=== PATIENT | male | born 1935 | race Caucasian/White ===

== ENCOUNTER 2018-11-26 22:01 | Inpatient (IN) | payer OTHER ==
--- OUTSIDE RECORDS SUMMARY | 2018-11-26 22:04 | XMS REPORT | Continuity of Care Document ---
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/02/2018 [facility] spondylosis [facility] Dystonia Active Problem 08/02/2018 [facility] HTN - Hypertension Active Problem 08/02/2018 [facility] Hyperlipidemia Active Problem 08/02/2018 [facility] Hypothyroidism Active Problem 08/02/2018 [facility] Peripheral Active Problem 08/02/2018 [facility] neuropathy [facility] Medications Medication Details Route Status Patient Ordering Order Source Instructions Provider Date guaiFENesin 600 mg 600 mg=1 Active [facility] oral tablet, tab, PO, 019 [facility] extended release Q12H, # 20 tab, 0 Refill(s) cyclobenzaprine 10 10 mg=1 Active [facility] mg oral tablet tab, PO, 019 [facility] Bedtime, PRN for spasms, # 30 tab, 0 Refill(s) Acetaminophen 325 1 tab, PO, Active [facility] MG / Hydrocodone Q4H, PRN 019 [facility] Bitartrate 10 MG for pain, Oral Tablet [[place]mo # 24 tab, 10/325] 0 Refill(s) amLODIPine 5 mg 5 mg=1 Active [facility] oral tablet tab, PO, 019 [facility] BID, 0 Refill(s) metoprolol 50 mg=1 Active [facility] tartrate 50 mg tab, PO, 019 [facility] oral tablet BID, # 180 tab, 0 Refill(s) Miralax 17 gm, PO, Active [facility] Daily, 0 019 [facility] Refill(s) simvastatin 20 mg 20 mg=1 Active [facility] oral tablet tab, PO, 019 [facility] Bedtime, # 30 tab, 1 Refill(s) predniSONE 5 mg 5 mg=1 Active [facility] oral tablet tab, PO, 019 [facility] Daily, 0 Refill(s) [facility] 112 [facility] (0.112 mg) microgram= 019 [facility] oral tablet 1 tab, PO, Daily, # 30 tab, 0 Refill(s) Breo Ellipta 100 1 puff, [facility] mcg-25 mcg INHALATION 019 [facility] inhalation powder , Daily, 0 Refill(s) duloxetine 60 MG 60 mg=1 [facility] Enteric Coated cap, PO, 019 [facility] Capsule [Cymbalta] Daily, # 30 cap, 0 Refill(s) Ventolin HFA 90 2 puff, Active [facility] mcg/inh inhalation INHALATION 019 Neuro aerosol with , QID, 0 adapter Refill(s) clopidogrel 75 MG 75 mg=1 [facility] Oral Tablet tab, PO, 019 [facility] [Plavix] Daily, # 30 tab, 0 Refill(s) Allergies, Adverse Reactions, Alerts Substance Category Reaction Severity Reaction Status Date Comments Source type Reported penicillins Assertion Drug Active [facility] allergy Neuro sulfa drugs Assertion Drug Active [facility] allergy Neuro Immunizations No Data Provided for This Section Results No Data Provided for This Section Pathology Reports No Data Provided for This Section Diagnostic Reports No Data Provided for This Section Consultation Notes No Data Provided for This Section Discharge Summaries No Data Provided for This Section History and Physicals No Data Provided for This Section Vital Signs Vital Sign Value Date Comments Source BMI Calculated 31.05 07/31/2018 [facility] Neuro Weight 87.273 07/31/2018 [facility] Neuro Height 167.64 cm 07/31/2018 [facility] Neuro Respitory Rate 16 07/31/2018 [facility] Neuro Systolic (mm Hg) 142 07/31/2018 [facility] Neuro Diastolic (mm Hg) 65 07/31/2018 [facility] Neuro Heart Rate 65 07/31/2018 [facility] Neuro Encounters Location Location Encounter Encounter Reason Attending ADM DC Status Source Details Type Number For Provider Date Date Visit Outpatient [id number] [place] 07/31 [facility] [place] [facility] Outpatient [id number] [place] 07/31 08/01 [facility] Neurology [facility] /2018 Neuro [place] [facility] [id number] [place] 07/29 [facility] [place] Procedures No Data Provided for This Section Assessment and Plan No Data Provided for This Section Plan of Care No Data Provided for This Section Social History Social History Date Source Social History TypeResponse 07/31/2018 [facility] Smoking Status Former smoker; Type: Cigarettes; Exposure to Tobacco Smoke None; Cigarette Smoking Last 365 Days No; Reg Smoking Cessation Counseling No entered on: 07/31/18 Family History No Data Provided for This Section Advance Directives No Data Provided for This Section Functional Status No Data Provided for This Section
--- OUTSIDE RECORDS SUMMARY | 2018-11-26 22:04 | XMS REPORT ---
:1935 Author Organization [facility] Address [facility] Elmer Walters [address] [place] [id number] Care Team Providers Name Role Phone [facility] Unavailable Unavailable Problems This patient has no known problems. Allergies, Adverse Reactions, Alerts This patient has no known allergies or adverse reactions. Medications This patient has no known medications. Results Test Description Test Time Test Comments Text Results Atomic Results Result Comments CT, CTA ABDOMEN 2017-04-28 15:21:00 Addendum BeginsREPORT STATUS:A Addendum: I reviewed the the images and nonvascular findings enumerated by Dr. Pierce in his report and concur. There are mild nonspecific increased interstitial changes in the lung bases, possibly scarring. Gas in biliary tree and gallbladder is likely related to prior sphincterotomy. Signed: Uzair Madden MDReport Verified Date/Time: 04/28/2017 15:21:39 Reading Location: [place] [address] Angio Body Reading RoomAddendum EndsFINAL REPORT CT angiography of the abdominal aorta and pelvic arteries, 28 April 2017 INDICATION: This is a 81 year old male with a diagnosis of abdominal aortic aneurysm presents for assessment. This study is performed in an attempt to avoid an invasive procedure. TECHNIQUE: Spiral acquisition before and during intravenous contrast administration using a Siemens CT scanner. Images were obtained before and during the dynamic passage of intravenous contrast material. Multi-planar 3-D volume-rendering reconstruction was performed using an independent workstation interactively by the interpreting physician as well as the 3-D specialist for optimal visualisation of the abdominal aorta, pelvic arteries, and its proximal branches. Please refer to the contrast sheet scanned in the EPIC system for the amount and route of contrast given. This exam was performed according to our departmental dose-optimisation programme, which includes automated exposure control, adjustment of the mA and/or kV according to patient size and/or use of iterative reconstruction technique. Dose modulation, iterative reconstruction, and/or weight based adjustment of the mA/kV was utilized to reduce the radiation dose to as low as reasonably achievable. FINDINGS: VASCULAR: The abdominal aorta is remarkable for mild aneurysmal dilation identified in the infrarenal abdominal aorta, extending into the aortic bifurcation. Scattered calcific atherosclerosis seen. No obvious thrombus is identified. There is no evidence of acute aortic pathology, specifically, there is no dissection, intramural hematoma, or contained rupture. Quantitative dimensions of the abdominal aorta are as follows: 2.4 cm at the mesenteric segment; 3.0 cm at the renal segment; proximal infrarenal level measures 1.7 x 1.8 cm; 4.0 x 3.7 cm at the mid infrarenal level; 3.9 x 4.1 cm at the distal infrarenal level; 3.0 x 2.8 cm above the aortic bifurcation. The common iliac, external iliac, common femoral, and the visualised superficial femoral arteries are patent. There is moderate calcific atherosclerosis scattered along the pelvic arteries. Dilation is identified in the distal right common iliac artery, at image 162, measure approximately 1.6 cm in diameter. Minimum luminal diameter of the left external iliac artery image 209 is 6 to 7 mm in diameter. Minimum luminal diameter at image 29 of the right external iliac artery is approximately 3.9 x 8.8 mm. The celiac axis, SMA, FABIANO are widely patent. Replaced right hepatic artery is seen, common variant. Single left and two right renal veins are seen draining normally into the IVC. NON-VASCULAR: The lung bases are unremarkable. Some dependent changes are seen. In the abdomen, the visualised liver and spleen appears unremarkable. No abnormal enhancing structure is identified in the liver, except for patchy enhancement is seen, in the peripheral aspect of the right hepatic lobe at image 20, likely represent vascular shunting. The liver edge is smooth. Air is seen in the biliary system, likely related percent prior instrumentation. Correlate with procedure note. The gallbladder is identified. No stone is seen. Foci of air is also identified in the gallbladder, image 41. The Endo will dictated thereafter. The adrenal glands are not enlarged. The pancreas appears unremarkable. No acute renal pathology is seen and no hydronephrosis or perirenal fluid collection is identified. Bowel is not well assessed by CT angiography as enteric contrast is not given. No obvious bowel dilation is identified. No free air free fluid seen abdomen and pelvis. Small fat-containing inguinal hernia is identified in the right. The prostate gland is prominent. The bladder appears unremarkable. No free air or free fluid is seen in the abdomen and pelvis. No significant retroperitoneal adenopathy is identified. The bony windows, no acute bony pathology is seen. Some degenerative changes is noted. CONCLUSION: 1. Mild aneurysmal dilation is identified infrarenal abdominal aorta with dimensions as described above. Maximum diameter measure approximately 4.2 x 3.7 cm at the mid infrarenal level. See snapshot for details. There is no evidence of acute aortic pathology, specifically, there is no dissection, intramural hematoma, or contained rupture. Quantitative dimension of the abdominal aorta are as noted. The radiology department requires follow duration to be dictated, for example in one year's time, however, the referring physician is the Order Checker Fitness Specialist of the [facility] and therefore no recommendation necessary. 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 2. Patent mesenteric and renal arteries. 3. Other findings as described above. 4. An addendum will be dictated regarding the non-vascular findings by the Order Checker Radiologist. Signed: Marc Pierce MDReport Verified Date/Time: 04/28/2017 13:31:12 Reading Location: [place] [address] Cardiology MRI -CREATININE 2017-04-28 12:16:00 Test Item Value Reference Range Comments POC-CREATININE ([facility]ORY) (test 1.0 mg/dL 0.6-1.3 TESTED AT [facility] 6720 [id number]) [facility] [address] POC-EGFR ([facility]) (test ylrh=[id number]) 72 mL/min/1.73M2
--- OUTSIDE RECORDS SUMMARY | 2018-11-26 22:04 | XMS REPORT | Clinical Summary ---
:1935 Author Organization [facility] Address [address] [place] [address] Care Team Providers Name Role Phone Francesco Gomez MD Primary Care Provider Allergies Active Allergy Reactions Severity Noted Date Comments Levofloxacin 07/09/2016 Tendon problems Penicillins Rash Low 07/09/2016 Sulfa (Sulfonamide Antibiotics) Rash Low 07/09/2016 Medications Medication Sig Dispensed Refills Start Date End Date Status HYDROcodone-acetaminophe Take 1 tablet by 0 Active n (NORCO 10-325) 10-325 mouth every 6 mg per tablet (six) hours as needed for Pain. LORazepam (ATIVAN) 1 MG Take 0.5 mg by 0 Active tablet mouth nightly . cyclobenzaprine Take 10 mg by 0 Active (FLEXERIL) 10 MG tablet mouth nightly. linaclotide (LINZESS) Take by mouth 0 Active 145 mcg Cap daily. polyethylene glycol Take 17 g by 0 Active (GLYCOLAX) 17 gram mouth daily. packet psyllium (METAMUCIL Take 1 packet by 0 Active SUGAR-FREE) 3.4 gram mouth daily. packet metoprolol (TOPROL-XL) Take 50 mg by 0 Active 50 MG 24 hr tablet mouth 2 (two) times daily. amLODIPine (NORVASC) 5 Take 5 mg by 0 Active MG tablet mouth 2 (two) times daily. levothyroxine Take 112 mcg by 0 Active (SYNTHROID, LEVOTHROID) mouth Every 150 MCG tablet morning on an empty stomach . clopidogrel (PLAVIX) 75 Take 75 mg by 0 Active mg tablet mouth daily. simvastatin (ZOCOR) 20 Take 20 mg by 0 Active MG tablet mouth nightly. guaiFENesin (GUAIFENESIN Take 1,200 mg by 0 Active CR) 600 mg 12 hr tablet mouth daily. albuterol HFA (VENTOLIN Inhale 1 puff by 0 Active HFA) 90 mcg/actuation mouth via inhaler inhaler every 6 (six) hours as needed for Wheezing. DULoxetine (CYMBALTA) 60 Take 60 mg by 0 Active MG capsule mouth daily. b complex vitamins (B Take 1 tablet by 0 Active COMPLEX 1) tablet mouth daily. cholecalciferol, vitamin Take 1,000 Units 0 Active D3, 1,000 unit capsule by mouth daily. [id number] Apply topically. 0 Active rolatum (CETAPHIL) Crea topical cream multivitamin per tablet Take 1 tablet by 0 Active mouth daily. Active Problems Problem Noted Date Cancer 01/22/2015 Overview: Lung Ca Aneurysm Emphysema of lung Coronary artery disease Overview: s/p ACB. Saw Dr Higuera/[employer] 2 wks ago [id number] COPD (chronic obstructive pulmonary disease) Overview: stable Hypertension Overview: med controlled Spinal stenosis Hypothyroidism TIA (transient ischemic attack) Hyperlipidemia Family History Medical History Relation Name Comments Cancer Brother Heart attack Father Pulmonary fibrosis Father Cancer Mother Pulmonary embolism Mother Blindness Sister Seizures Sister Relation Name Status Comments Brother Father Mother Sister Social History Tobacco Use Types Packs/Day Years Used Date Former Smoker 52 Quit: 2005 Smokeless Tobacco: Never Used Comments: quit x 10 yrs Alcohol Use Drinks/Week oz/Week Comments No Sex Assigned at Date Recorded Not on file Job Start Date Occupation Industry Not on file Not on file Not on file Travel History Travel Start Travel End No recent travel history available. Last Filed Vital Signs Not on file Plan of Treatment Health Maintenance Due Date Last Done Comments INFLUENZA VACCINE 12/22/2017 Results Not on fileafter 11/25/2017 Insurance Payer Benefit Plan / Subscriber ID Type Phone Address Group AETNA - MEDICARE AETNA MEDICARE HMO xxxxxxxx [phone] [address] [employer] POS PPO [place] [address] [phone] [id number]) [address] [place], [place] [address]
[2018-11-26] MEDS ORDERED: MORPHINE 4 MG/ML SYR ONE (22:54)
[2018-11-26] MEDS ORDERED: ONDANSETRON 4 MG/2 ML VIAL ONE (22:54)
[2018-11-26 23:05] LABS: Absolute Lymphocytes (CBC) 0.6 K/uL (0.7-4.9); Basophils % 0.1 % (0-1.3); Hematocrit 37.7 % (39.6-49.0); Lymphocytes % 4.4 % (15.3-44.8); MPV 8.8 fL (7.6-11.3); RBC Red Blood Cell Count 4.09 M/uL (4.33-5.43)
[2018-11-26 23:18] LABS: Protime INR 0.98
[2018-11-26 23:31] LABS: Magnesium 1.7 mg/dL (1.8-2.4); Potassium 4.2 mmol/L (3.5-5.1); Troponin (Emerg Dept Use Only) 0.05 ng/mL (0.0-0.045)
[2018-11-26] MEDS ORDERED: IPRATROPIUM BROM 0.5MG/2.5ML ONE (23:50)
[2018-11-26] MEDS ORDERED: LEVALBUTEROL 1.25 MG/3 ML NEB ONE (23:50)
[2018-11-26] MEDS ORDERED: MAGNESIUM SULFATE 1 gm IVPB 1 GM/100 ML BAG IV ONE (23:51)
[2018-11-27] MEDS ORDERED: AZITHROMYCIN 500 MG INJ IVPB ONE (00:10)
[2018-11-27] MEDS ORDERED: NA CHLORIDE 0.9% 250 ML ONE (00:10)
[2018-11-27] MEDS ORDERED: CEFTRIAXONE/SWI 1gm 1 GM/10 ML SYR ONE (00:10)
--- NOTE | 2018-11-27 00:11 | ER ---
Nurse's Notes [facility] Name: Pedro Morales Age: 83 yrs Sex: Male : 1935 Arrival Date: 11/26/2018 Time: 22:11 Bed 26 Private MD: Diagnosis: Fever, unspecified;Elevated white blood cell count;Dyspnea Presentation: 11/26 22:18 Presenting complaint: EMS states: Called for patient with fever and chills that began lp1 suddenly at 1730 this evening, shortness of breath; Uses home O2 at 2L; Per EMS, patient at 92% on 2L NC, HR 105, Temp 101.7 axillary. Transition of care: patient was not received from another setting of care. Onset of symptoms was November 26, 2018 at 17:30. Risk Assessment: Do you want to hurt yourself or someone else? Patient reports no desire to harm self or others. Initial Sepsis Screen: Does the patient meet any 2 criteria? No. Patient's initial sepsis screen is negative. Does the patient have a suspected source of infection? No. Patient's initial sepsis screen is negative. Care prior to arrival: IV initiated. 20 GA, in the right antecubital area, Oxygen administered. via nasal cannula. 22:18 Method Of Arrival: EMS: [facility] lp1 22:18 Acuity: ZACHERY 3 lp1 Triage Assessment: 22:30 Respiratory: the patient reports symptoms have resolved. 22:30 Respiratory: Reports shortness of breath. 22:30 Respiratory: Onset: The symptoms/episode began/occurred this afternoon. Historical: - Allergies: 22:28 PENICILLINS; lp1 22:28 Sulfa (Sulfonamide Antibiotics); lp1 22:28 Levaquin; lp1 - Home Meds: 22:28 Centrum Silver oral oral daily [Active]; duloxetine 60 mg oral cpDR 1 cap once daily lp1 [Active]; cyclobenzaprine 10 mg Oral tab daily [Active]; Plavix 75 mg Oral tab 1 tab once daily [Active]; prednisone 10 mg Oral tab once daily [Active]; metoprolol tartrate 50 mg Oral tab 1 tab 2 times per day [Active]; lorazepam 0.5 mg Oral tab nightly [Active]; fluorometholone 0.1 % ophthalmic drps 1 drop 2 times per day [Active]; levothyroxine 100 mcg tab 1 tab once daily [Active]; simvastatin 20 mg Oral tab nightly [Active]; [place] 10-325 mg Oral tab 1 tab every 4 hours for Pain [Active]; Breo Ellipta 200-25 mcg/dose inhalation dsdv 1 puff every 4 hours [Active]; spironolactone 25 mg Oral tab 1 tab once daily [Active]; - PMHx: 22:28 COPD; AAA; Degenerative disc disease; Back pain; lung cancer; TIA; lp1 - PSHx: 22:28 Knee surgery; cataracts; R upper lobectomy; laminectomy; lp1 - Immunization history:: Adult Immunizations up to date. - Social history:: Smoking status: Patient/guardian denies using tobacco, the patient reports quitting approximately 14 years ago. - Ebola Screening: : No symptoms or risks identified at this time. Screenin:28 Abuse screen: Denies threats or abuse. Denies injuries from another. Nutritional lp1 screening: No deficits noted. Tuberculosis screening: No symptoms or risk factors identified. 22:30 Fall Risk None identified. Assessment: 22:40 General: Appears in no apparent distress. Behavior is calm, cooperative, appropriate wh for age. Pain: Complains of pain in neck Pain does not radiate. Pain currently is 8 out of 10 on a pain scale. Quality of pain is described as aching. Neuro: Level of Consciousness is awake, alert, obeys commands, Oriented to person, place, time, situation, Appropriate for age Preparator are equal bilaterally. Cardiovascular: Heart tones S1 S2 Rhythm is regular. Respiratory: Airway is patent Respiratory effort is even, unlabored, Respiratory pattern is regular, symmetrical, Breath sounds are clear bilaterally. GI: Abdomen is flat, non-distended. : No signs and/or symptoms were reported regarding the genitourinary system. EENT: No signs and/or symptoms were reported regarding the EENT system. Derm: Skin is intact, is healthy with good turgor, Skin is pink, warm \T\ dry. normal. Musculoskeletal: Range of motion: intact in all extremities. 23:35 Reassessment: Patient appears in no apparent distress at this time. No changes from previously documented assessment. Patient and/or family updated on plan of care and expected duration. Pain level reassessed. Patient is alert, oriented x 3, equal unlabored respirations, skin warm/dry/pink. 11/27 00:28 Reassessment: Patient appears in no apparent distress at this time. No changes from previously documented assessment. Patient and/or family updated on plan of care and expected duration. Pain level reassessed. Patient is alert, oriented x 3, equal unlabored respirations, skin warm/dry/pink. Patient states feeling better. Patient states symptoms have improved. 01:30 Reassessment: Patient appears in no apparent distress at this time. No changes from previously documented assessment. Patient and/or family updated on plan of care and expected duration. Pain level reassessed. Patient is alert, oriented x 3, equal unlabored respirations, skin warm/dry/pink. Patient states feeling better. Patient states symptoms have improved. Vital Signs: 11/26 22:20 BP 120 / 98; Pulse 89; Resp 18; Temp 99(O); Pulse Ox 98% on 2 lpm NC; Weight 86.18 kg; lp1 Height 5 ft. 6 in. (167.64 cm); Pain 8/10; 23:30 BP 100 / 53; Pulse 71; Resp 18; Pulse Ox 100% on 2 lpm NC; 11/27 00:30 BP 97 / 56; Pulse 83; Resp 16; Temp 100.7(O); Pulse Ox 99% on 2 lpm NC; 11/26 22:20 Body Mass Index 30.67 (86.18 kg, 167.64 cm) lp1 ED Course: 11/26 22:11 Patient arrived in ED. bb 22:13 Cristal Aquino FNP-C [facility] kb 22:13 Ernesto Fine MD is Attending Physician. kb 22:20 Triage completed. lp1 22:21 Arm band placed on. lp1 22:28 Patient has correct armband on for positive identification. Placed in gown. Bed in low lp1 position. Call light in reach. vehicle monitor technician on. Pulse ox on. NIBP on. 22:37 Yana Omlstead is Primary Nurse. 22:42 X-ray completed. Portable x-ray completed in exam room. Patient tolerated procedure mh1 well. 22:48 Initial lab(s) drawn, by me, sent to lab. First set of blood cultures drawn by me. lt1 22:54 XRAY Chest (1 view) In Process Unspecified. EDMS 22:55 Inserted saline lock: 20 gauge in left antecubital area, using aseptic technique. lt1 22:55 Flu and/or RSV swab sent to lab. lt1 22:56 Flu Sent. lt1 23:25 Second set of blood cultures drawn by me. lt1 11/27 00:08 Marcia Gomez MD is Hospitalizing Provider. kb 01:29 No provider procedures requiring assistance completed. Patient admitted, IV remains in place. Administered Medications: 11/26 22:59 Drug: morphine 4 mg Route: IVP; Site: right antecubital; 23:57 Follow up: Response: No adverse reaction; Pain is decreased; RASS: Alert and Calm (0) 23:57 Drug: Xopenex (3) 1.25 mg Route: Inhalation; 23:57 Drug: AtroVENT Aerosol 0.5 mg Route: Inhalation; 23:57 Drug: Magnesium Sulfate 1 grams Route: IVPB; Infused Over: 1 hrs; Site: left antecubital; 11/27 00:32 Follow up: Response: No adverse reaction; IV Status: Completed infusion 00:22 Drug: Zithromax 500 mg Route: IVPB; Infused Over: 1 hrs; Site: right antecubital; 01:31 Follow up: Response: No adverse reaction; IV Status: Completed infusion 00:22 Drug: Rocephin 1 grams Route: IV; Rate: calculated rate; Site: right antecubital; 01:31 Follow up: Response: No adverse reaction; IV Status: Completed infusion 00:47 Drug: Tylenol 650 mg Route: PO; 01:31 Follow up: Response: No adverse reaction Outcome: 00:08 Decision to Hospitalize by Provider. kb 01:30 Admitted to Tele accompanied by tech, family with patient, via stretcher, room 429, with chart, Report called to Tate eVlazquez RN 01:30 Condition: good 01:30 Instructed on the need for admit. 01:32 Patient left the ED. Signatures: Dispatcher [employer] EDRI Cristal Aquino, DEIDRA NUNO-Nadiya Alcaraz 1 Maritza Kebede RN RN Roya Macias RN RN [facility] Yana Olmstead Sharla Phillip lt1 Corrections: (The following items were deleted from the chart) 00:45 00:30 BP 97 / 56; Pulse 83bpm; Resp 16bpm; Pulse Ox 99% 2 lpm Nasal Cannula; [facility] 01:32 01:30 Admitted to Med/surg accompanied by nurse, family with patient, via wheelchair, room 230, with chart, Report called to Faith Ahuja RN
--- NOTE | 2018-11-27 00:15 | EDPHYS ---
Physician Documentation [facility] Name: Pedro Morales Age: 83 yrs Sex: Male : 1935 Arrival Date: 11/26/2018 Time: 22:11 Bed 26 Private MD: ED Physician Ernesto Fine HPI: 11/27 00:22 This 83 yrs old Male presents to ER via EMS with complaints of Fever, kb Breathing Difficulty. 00:22 The patient has shortness of breath at rest. Onset: The symptoms/episode began/occurred kb today. Duration: The symptoms are continuous. The patient's shortness of breath is aggravated by exertion, is alleviated by nothing. Associated signs and symptoms: Pertinent positives: non-productive cough, fever. Severity of symptoms: At their worst the symptoms were moderate in the emergency department the symptoms are unchanged. The patient has not experienced similar symptoms in the past. The patient has not recently seen a physician. Pt reports fever, chills and shortness of breath that started today. 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: - Allergies: 11/26 22:28 PENICILLINS; lp1 22:28 Sulfa (Sulfonamide Antibiotics); lp1 22:28 Levaquin; lp1 - Home Meds: 22:28 Centrum Silver oral oral daily [Active]; duloxetine 60 mg oral cpDR 1 cap once daily lp1 [Active]; cyclobenzaprine 10 mg Oral tab daily [Active]; Plavix 75 mg Oral tab 1 tab once daily [Active]; prednisone 10 mg Oral tab once daily [Active]; metoprolol tartrate 50 mg Oral tab 1 tab 2 times per day [Active]; lorazepam 0.5 mg Oral tab nightly [Active]; fluorometholone 0.1 % ophthalmic drps 1 drop 2 times per day [Active]; levothyroxine 100 mcg tab 1 tab once daily [Active]; simvastatin 20 mg Oral tab nightly [Active]; [place] 10-325 mg Oral tab 1 tab every 4 hours for Pain [Active]; Breo Ellipta 200-25 mcg/dose inhalation dsdv 1 puff every 4 hours [Active]; spironolactone 25 mg Oral tab 1 tab once daily [Active]; - PMHx: 22:28 COPD; AAA; Degenerative disc disease; Back pain; lung cancer; TIA; lp1 - PSHx: 22:28 Knee surgery; cataracts; R upper lobectomy; laminectomy; lp1 - Immunization history:: Adult Immunizations up to date. - Social history:: Smoking status: Patient/guardian denies using tobacco, the patient reports quitting approximately 14 years ago. - Ebola Screening: : No symptoms or risks identified at this time. ROS: 11/27 00:17 Neck: Negative for injury, pain, and swelling, Cardiovascular: Negative for chest pain, kb palpitations, and edema, Abdomen/GI: Negative for abdominal pain, nausea, vomiting, diarrhea, and constipation, MS/Extremity: Negative for injury and deformity, Skin: Negative for injury, rash, and discoloration, Neuro: Negative for headache, weakness, numbness, tingling, and seizure. Constitutional: Positive for chills, fever. Respiratory: Positive for cough, Negative for dyspnea on exertion, hemoptysis, orthopnea, pleurisy, shortness of breath, sputum production, wheezing. Back: Positive for pain at rest, pain with movement. Exam: 00:18 Constitutional: This is a well developed, well nourished patient who is awake, alert, kb and in no acute distress. Head/Face: Normocephalic, atraumatic. Neck: Trachea midline, no thyromegaly or masses palpated, and no cervical lymphadenopathy. Supple, full range of motion without nuchal rigidity, or vertebral point tenderness. No Meningismus. Chest/axilla: Normal chest wall appearance and motion. Nontender with no deformity. No lesions are appreciated. Cardiovascular: Regular rate and rhythm with a normal S1 and S2. No gallops, murmurs, or rubs. Normal PMI, no JVD. No pulse deficits. Abdomen/GI: Soft, non-tender, with normal bowel sounds. No distension or tympany. No guarding or rebound. No evidence of tenderness throughout. Back: No spinal tenderness. No costovertebral tenderness. Full range of motion. Skin: Warm, dry with normal turgor. Normal color with no rashes, no lesions, and no evidence of cellulitis. MS/ Extremity: Pulses equal, no cyanosis. Neurovascular intact. Full, normal range of motion. Neuro: Awake and alert, GCS 15, oriented to person, place, time, and situation. Cranial nerves II-XII grossly intact. Motor strength 5/5 in all extremities. Sensory grossly intact. Cerebellar exam normal. Normal gait. 00:18 Respiratory: the patient does not display signs of respiratory distress, Respirations: normal, Breath sounds: rhonchi, that are mild, are located in both bases, wheezing: expiratory is scattered. Vital Signs: 11/26 22:20 BP 120 / 98; Pulse 89; Resp 18; Temp 99(O); Pulse Ox 98% on 2 lpm NC; Weight 86.18 kg; lp1 Height 5 ft. 6 in. (167.64 cm); Pain 8/10; 23:30 BP 100 / 53; Pulse 71; Resp 18; Pulse Ox 100% on 2 lpm NC; wh 11/27 00:30 BP 97 / 56; Pulse 83; Resp 16; Temp 100.7(O); Pulse Ox 99% on 2 lpm NC; wh 11/26 22:20 Body Mass Index 30.67 (86.18 kg, 167.64 cm) lp1 MDM: 11/26 22:13 Patient medically screened. kb 11/27 00:16 Data reviewed: vital signs, nurses notes. Data interpreted: Pulse oximetry: on room air kb is 98 %. Interpretation: normal. Counseling: I had a detailed discussion with the patient and/or guardian regarding: the historical points, exam findings, and any diagnostic results supporting the discharge/admit diagnosis, lab results, radiology results, the need for further work-up and treatment in the hospital. ED course: Discussed findings and diagnostics with Dr Fine. Agrees with admission to Dr Gomez.. 11/26 22:20 Order name: Basic Metabolic Panel; Complete Time: 23:35 kb 11/26 22:20 Order name: CBC with Diff; Complete Time: 01:01 kb 11/26 22:20 Order name: Magnesium; Complete Time: 23:35 kb 11/26 22:20 Order name: NT PRO-BNP; Complete Time: 23:35 kb 11/26 22:20 Order name: PT-INR; Complete Time: 23:44 kb 11/26 22:20 Order name: Troponin (emerg Dept Use Only); Complete Time: 23:35 kb 11/26 22:20 Order name: XRAY Chest (1 view) kb 11/26 22:20 Order name: Lactate; Complete Time: 23:32 kb 11/26 22:20 Order name: Procalcitonin; Complete Time: 00:23 kb 11/26 22:20 Order name: Blood Culture Adult (2) kb 11/26 22:20 Order name: Flu; Complete Time: 23:35 kb 11/26 23:13 Order name: Manual Differential; Complete Time: 01:01 EDMS 11/26 22:20 Order name: EKG; Complete Time: 22:23 kb 11/26 22:20 Order name: Cardiac monitoring; Complete Time: 22:37 kb 11/26 22:20 Order name: EKG - Nurse/Tech; Complete Time: 22:37 kb 11/26 22:20 Order name: IV Saline Lock; Complete Time: 22:37 kb 11/26 22:20 Order name: Labs collected and sent; Complete Time: 22:37 kb 11/26 22:20 Order name: O2 Per Protocol; Complete Time: 22:37 kb 11/26 22:20 Order name: O2 Sat Monitoring; Complete Time: 22:37 kb Administered Medications: 11/26 22:59 Drug: morphine 4 mg Route: IVP; Site: right antecubital; 23:57 Follow up: Response: No adverse reaction; Pain is decreased; RASS: Alert and Calm (0) 23:57 Drug: Xopenex (3) 1.25 mg Route: Inhalation; 23:57 Drug: AtroVENT Aerosol 0.5 mg Route: Inhalation; 23:57 Drug: Magnesium Sulfate 1 grams Route: IVPB; Infused Over: 1 hrs; Site: left antecubital; 11/27 00:32 Follow up: Response: No adverse reaction; IV Status: Completed infusion 00:22 Drug: Zithromax 500 mg Route: IVPB; Infused Over: 1 hrs; Site: right antecubital; 01:31 Follow up: Response: No adverse reaction; IV Status: Completed infusion 00:22 Drug: Rocephin 1 grams Route: IV; Rate: calculated rate; Site: right antecubital; 01:31 Follow up: Response: No adverse reaction; IV Status: Completed infusion 00:47 Drug: Tylenol 650 mg Route: PO; 01:31 Follow up: Response: No adverse reaction Disposition: 01:43 Co-signature as Attending Physician, Ernesto Fine MD I agree with the assessment and kdr plan of care. Disposition: 11/27/18 00:08 Hospitalization ordered by Marcia Gomez for Observation. Preliminary diagnosis are Fever, unspecified, Elevated white blood cell count, Dyspnea. - Bed requested for Telemetry/MedSurg (observation). - Status is Observation. - Condition is Stable. - Problem is new. - Symptoms are unchanged. UTI on Admission? No Signatures: Dispatcher [employer] EDMS Cristal Aquino, CHOKER SETTER-C CHOKER SETTER-Ernesto Morfin MD MD [facility] Roya Ellison, RN RN lp1 Debra Gonzalez, RN RN Yana Olmstead Corrections: (The following items were deleted from the chart) 00:17 00:08 Hospitalization Ordered by A Patricia LARA for Observation. Preliminary diagnosis is cg Fever, unspecified; Elevated white blood cell count; Dyspnea. Bed requested for Telemetry/MedSurg (observation). Status is Observation. Condition is Stable. Problem is new. Symptoms are unchanged. UTI on Admission? No. kb 01:32 00:17 11/27/2018 00:08 Hospitalization Ordered by A Patricia LARA for Observation. Preliminary diagnosis is Fever, unspecified; Elevated white blood cell count; Dyspnea. Bed requested for Telemetry/MedSurg (observation). Status is Observation. Condition is Stable. Problem is new. Symptoms are unchanged. UTI on Admission? No. cg
[2018-11-27] MEDS ORDERED: ACETAMINOPHEN 325 MG TABLET ONE (00:42)
[2018-11-27 00:51] LABS: Blood Morphology Comment NOT SEEN (NOT SEEN); Platelet Estimate ADEQ
[2018-11-27] MEDS ORDERED: ALBUTEROL 2.5 MG/3 ML NEB SOL NEB PRN ×2 (01:33→14:40)
[2018-11-27] MEDS ORDERED: ACETAMINOPHEN 500 MG TAB PO PRN (01:33)
[2018-11-27] MEDS ORDERED: ONDANSETRON 4 MG/2 ML VIAL IV PRN (01:33)
[2018-11-27] MEDS ORDERED: IPRATROPIUM BROM 0.5MG/2.5ML NEB PRN ×2 (01:33→14:40)
[2018-11-27 01:35] VITALS: BMI 31.0
[2018-11-27] MEDS: MORPHINE 4 MG/ML SYR IV PRN ×5 (02:26→21:28)
[2018-11-27] MEDS: METHYLPREDNISOLONE 40 MG INJ IV SCH ×3 (02:26→17:07)
[2018-11-27 05:44] LABS: Urine Appearance CLEAR; Urine Bilirubin NEGATIVE (NEG); Urine Blood NEGATIVE (NEG); Urine Color YELLOW; Urine Glucose NEGATIVE (NEG); Urine Protein NEGATIVE (NEG); Urine Specific Gravity 1.015 (1.005-1.030); Urine pH 6.5 (5.0-7.0)
[2018-11-27 05:46] LABS: Urine Microscopic Reflex NO UMIC
[2018-11-27] MEDS: ASPIRIN EC 81 MG TAB PO SCH (08:00)
--- NOTE | 2018-11-27 08:23 | EKG ---
Test Date: 2018-11-26 Test Time: 22:10:42 Cashier Supervisor: FRANCIE MEASUREMENT RESULTS: Intervals: Rate: 83 DC: 150 QRSD: 80 QT: 344 QTc: 404 Nelson: P: 33 DC: 150 QRS: -53 T: 77 INTERPRETIVE STATEMENTS: Normal sinus rhythm with sinus arrhythmia Possible Left atrial enlargement Left axis deviation Nonspecific ST abnormality Abnormal ECG Compared to ECG 04/03/2017 16:05:03 ST (T wave) deviation now present Sinus bradycardia no longer present Electronically Signed On 11-27-18 08:22:59 CDT by Reymundo Higuera
[2018-11-27] MEDS: CEFTRIAXONE/SWI 1gm 1 GM/10 ML SYR IV SCH ×2 (09:00→20:09)
[2018-11-27] MEDS: METRONIDAZOLE 500mg IVPB 500 MG/100 ML BAG IV SCH ×2 (09:22→16:57)
--- NOTE | 2018-11-27 09:27 | RAD REPORT ---
EXAM DESCRIPTION: RAD - Chest Single View - 11/26/2018 10:43 pm CLINICAL HISTORY: Dyspnea, fever and chills COMPARISON: October 28 TECHNIQUE: AP portable chest image was obtained 2241 hours . FINDINGS: Low lung volumes noted, particularly on the right. Patient has chronic interstitial lung d isease present. No new or progressive lung parenchymal process. Sternotomy wires are in place. Heart and vasculature are normal. No measurable pleural effusion and no pneumothorax. No acute bony abnorma lity seen. No acute aortic findings suspected. IMPRESSION: No acute cardiopulmonary process. Chronic interstitial lung disease matches comparison imaging.
--- NOTE | 2018-11-27 11:45 | RAD REPORT ---
EXAM DESCRIPTION: CT - Abdomen Pelvis Wo Contrast - 11/27/2018 11:10 am CLINICAL HISTORY: LLQ pain COMPARISON: CT ABD PELVIS W CONTRAST dated 06/04/2015; CT ANGIO ABDOMEN dated 12/10/2006; Thorax W/ Co n dated 04/11/2017; Thorax Wo Con dated 09/17/2016 TECHNIQUE: Axial [address] imaging of the abdomen and pelvis was performed without IV contrast. No IV contrast was given because of allergy, abnormal renal function, patient refusal or physician re quest. Oral contrast was given. All CT scans are performed using dose optimization technique as appropriate and may include automated exposure control or mA/KV adjustment according to patient size. FINDINGS: Extensive interstitial fibrotic lung changes are present with subpleural emphysematous lucy nges. Has progressed from prior imaging. No focal mass or consolidation in either base. No pneumothor ax or pleural effusion. No pericardial thickening or effusion. Dense Coronary artery calcifications a re present. No focal liver parenchymal lesions seen on noncontrast imaging. Liver size is normal. No splenomegaly or focal splenic finding. No pancreatic parenchymal mass. Gallbladder size is normal. There is no wa ll thickening or pericholecystic fluid. There is a small focus of air within the lumen of the gallbla dder and there is air within the common bile duct and intrahepatic ducts. Review of the [address] chest studies show pneumobilia to be present. No hydronephrosis or suspicious renal mass. No significant adrenal finding. Isodense renal masses an d pyelonephritis cannot be excluded in the absence of IV contrast. In the retro peritoneal fatty tiss ues posterior to the right kidney there is a 16 millimeter nodular density abutting the deep pleural reflection. This measures only fractionally larger than the 2016 study and is probably of no long-ter m significance. Partially filled urinary bladder shows no suspicious finding. No prostate gland acute abnormality. No dilated bowel loops or bowel wall thickening. Sigmoid is tortuous and redundant extending the righ t mid abdomen. No diverticulitis or acute colon process identifiable. No free air, free fluid or infl ammatory stranding. No mass, bulky lymphadenopathy or omental thickening. Prominent bony degenerative changes are present. No pathologic bone process seen. Patient has a known tortuous abdominal aortic aneurysm. No periaortic fluid or stranding. Aneurysm me asures 4.8 cm AP x 4.5 cm TR. Corresponding image from 2016 measures 4.5 cm AP x 4.1 cm TR. No new di splacement centrally of calcifications. Dense calcifications extend into each common iliac artery. Basim de la garza likely has a significant stenosis at the origin of each common iliac artery. IMPRESSION: No colitis/diverticulitis or other abnormality to explain the patient's left lower quadr ant pain pattern. Patient has a large known abdominal aortic aneurysm previously evaluated. The aneurysm measures 4.8 c m AP x 4.5 cm TR. This compares to the 2016 measurements of 4.5 x 4.1 cm. No fluid or stranding in th e periaortic tissues. Small focus of air is seen within the lumen of the gallbladder. Air is seen within the extrahepatic a nd intrahepatic biliary tree. Intrahepatic pneumobilia was partially seen on 2018 and 2017 studies. There is no wall thickening, edema, pericholecystic fluid or other finding that would indicate the ga llbladder air is related to acute cholecystitis. Patient has apparently no localizing symptoms to the right upper quadrant. Progressive fibrotic change in each lung base. Full assessment is limited is the absence of IV contrast.
[2018-11-28] MEDS: METHYLPREDNISOLONE 40 MG INJ IV SCH ×3 (00:25→16:04)
[2018-11-28] MEDS: METRONIDAZOLE 500mg IVPB 500 MG/100 ML BAG IV SCH ×3 (00:25→16:04)
--- NOTE | 2018-11-28 02:15 | HP ---
Date of Admission: 11/27/2018 Chief Complaint: Fever and chills. History Of Present Illness: This is an 83-year-old very pleasant male patient who was doing fine in his normal usual state of health until yesterday. All of a sudden around 5:30 p.m., he started to de velop really bad episode of chills and subsequently started to have fever. [facility] After he arrived in the ER, he was evaluated and admitted to the hospital under my serv ice. He denies any abdominal pain. No vomiting. No diarrhea. No constipation. No urinary complai nts. Does not have any sore throat or cough, cold, congestion. No expectoration. When the patient arrived in the ER, he was evaluated and the ER physician admitted him to the hospital and I was conta cted. Patient was started on empiric antibiotic in the emergency room. Denies any rash anywhere. H chuck has some chronic itching problem and from really hard scratching he has some bruises on his left po sterolateral chest wall area. Review of Systems: Dermatology: As mentioned above. Constitutional: As mentioned above. All other systems reviewed and negative. Past Medical History: Significant for hypertension, hyperlipidemia, lung cancer, anemia, COPD, impai red fasting glucose, osteoarthritis at multiple sites, coronary artery disease, hypothyroidism, hyper kalemia, osteoporosis, abdominal aortic aneurysm, gastroesophageal reflux disease, depression. For t he patient's abdominal aortic aneurysm, he has to see 4 or 5 different physicians in [facility] and they all determined that he was at too high risk for any kind of surgical intervention for that, so no surgical intervention or option was offered to him for that. Past Surgical History: Surgery for lung cancer during later part of 2014, arthroscopic knee surgery, back surgery, cataract surgery, TURP. Family History: Significant for coronary artery disease, Alzheimer disease. Social History: Negative for smoking or alcohol use. Allergies: PENICILLIN AND SULFA. Medications: List reviewed. Physical Examination: Vital Signs: Temperature 98.7, pulse 87, respiratory rate 17, blood pressure 99/55, oxygen saturatio n 98%, height 5 feet 6 inches, weight 192 pounds. General: Awake, alert, oriented, not in distress. HEENT: Head atraumatic, normocephalic. Conjunctivae nonerythematous. Sclerae white. Mouth, no thr ush or edema noted. Ears/Nose, no mass, lesion, discharge noted. Neck: Supple. No JVD, lymph nodes, bruit, thyromegaly noted. Lungs: Bilateral good equal air entry. Clear to auscultation. No rhonchi. No rales. Heart: Normal heart sounds, no murmur or gallop. Abdomen: Patient has very mild tenderness in left lower quadrant of abdomen. No rebound tenderness. Bowel sounds normoactive. No distention. No hepatosplenomegaly. No bruit. Extremities: No leg edema. No calf tenderness. Skin: Patient has some bruises and scratch paul on the left posterolateral chest wall. Lymphatics: No lymph node enlargement in neck, supraclavicular, infraclavicular region. Neuro: No focal neurological deficit. Chest: Unremarkable. External Genitalia: Deferred. Rectal: Deferred. Imaging Data: Chest x-ray, no acute cardiopulmonary changes. CAT scan of the abdomen and pelvis was done after I saw him and that was reported as no acute intraabdominal changes, presence of air in bi le duct and gallbladder area. Upon review of prior CAT scan few years ago, radiologist reported denise y that the patient did have an air in the bile duct area in the past and the air in the gallbladder i s something new compared to the previous CAT scan. Laboratory Data: White count 14.5, hemoglobin 12.8, platelets 180, 88% neutrophils, 6 bands. Sodium 132, potassium 4.2, chloride 100, bicarb 25, BUN 22, creatinine 1.17, glucose 89, magnesium 1.7, pro calcitonin 5.60. First troponin 0.05, second troponin 0.05, third troponin 0.02. Urinalysis negative . Impression: 1.Rule out sepsis. 2.Anemia, unspecified. 3.Volume depletion. 4.Chronic obstructive pulmonary disease. 5.Coronary artery disease. 6.Hypertension. 7.Hyperlipidemia. 8.Lung cancer. 9.Impaired fasting glucose. 10.Osteoarthritis, multiple sites. 11.Hypothyroidism. 12.Abdominal aortic aneurysm. 13.Gastroesophageal reflux disease. 14.Depression. Plan: Admit the patient to hospital for further evaluation and management of this problem. The tessa ent is appropriate for inpatient and is expected to spend 2 midnights in the hospital. Continue home medications per order. IV antibiotics will be given per order. Ambulation was encouraged. We will continue ceftriaxone which was started in emergency room. I also added metronidazole. Patient's CA T scan finding reviewed with radiologist. There is no evidence of gallbladder wall thickening or any fluid around gallbladder. No evidence of any acute cholecystitis and clinically also patient does n ot have any such problem. We will find out from the patient if he had any endoscopy type of procedur e done or not and that would help us to provide appropriate explanation, but at the same time, the ai r noted on biliary tree was present few years ago. Different finding is there in the gallbladder, bu t there is no evidence of any gallbladder infection at this point. We will get opinion from one of medhat nix general surgeon. WAGNER/PARKER Voice ID: [id number]
[2018-11-28] MEDS: MORPHINE 4 MG/ML SYR IV PRN ×5 (02:18→22:06)
--- NOTE | 2018-11-28 02:22 | CON ---
Date of Consultation: 11/27/2018 Diagnosis: Pneumobilia. History Of Present Illness: This is the case of an 83-year-old patient, admitted for left lower quad rant tenderness, is doing well but during the CAT scan, found to have an incidental finding of air in the common bile duct and gallbladder without any symptoms. Surgical consult was obtained because of the differential diagnosis. Patient denies any abdominal pain at this moment in the epigastric iman on or in the right upper quadrant. He has a mild left lower quadrant tenderness every now and then. Patient is well-known by the medical system due to aneurysms that as per patient he has been denying any surgery to repair due to the complications that might happen to it. At this moment, he has no p eritonitis. He has a history of pancreatitis, has been seen before, and he also claimed he has ERCPs and also stone removed from the pancreas and a sphincterotomy. When we took a look at the imaging s everal years ago, he already had pneumobilia after that procedure. He denies any dysuria, hematuria, hematochezia, or melena. He denies any recent traveling out of the country. He denies any family m embers sick at home. Past Medical History: As above, include aortic aneurysm, COPD, and TIA. Past Surgical History: Knee surgery; endoscopy and ERCP with sphincterotomy with pancreatic stone ex traction, he stated several years ago in [place]. He does not remember the name. Social History: He does not smoke. He does not drink alcohol. Allergies: PENICILLIN, SULFA, LEVAQUIN. Medications: Reviewed. Review of Systems: Ten points otherwise unremarkable. Physical Examination: General: Patient is awake and alert. HEENT: Pupils are equal and reactive. Anicteric. Neck: Supple. Chest: Clear. Abdomen: Soft and depressible. No guarding, rebound, or peritoneal signs. No Todd sign. No psoa s sign. No Rovsing sign. Epigastric right upper quadrant area with no pain or tenderness. Left low er quadrant area, he says he has some pain before, but not any more. No guarding, no rebound in that area neither. Rectal: Deferred. Extremities: Good capillary refill. No cyanosis. Laboratory Data: Blood work shows WBC count of 14, hemoglobin of 12.8, platelets of 180. INR is 0.9 8. Chemistry shows potassium of 4.2, creatinine is 1.17; and I just ordered LFTs, amylase and lipase , still pending. CAT scan of the abdomen and pelvis interpreted by Dr. Lenz as a small focus of a ir seen within the lumen of the gallbladder or so in the extrahepatic and intrahepatic biliary tree. That corresponds with the same findings in 2018 and 2017. The gallbladder shows no wall thickening. No pericholecystic fluid. No air in the wall. No edema. Assessment And Plan: This is an 83-year-old patient with chronic findings of pneumobilia. The patie nt is asymptomatic at this moment. No Todd sign. So, from the surgical standpoint, we believe thi s could be a chronic finding. He understands the implications of having that and he understands also the high risk of any surgical intervention that is why the aneurysm is not done, so he is not going to go for any surgery or cholecystectomy at this time, but at the same time, I believe the chances of this to be something chronic are very high since patient has a procedure done before, a sphincteroto my, which is suspected to have air in the common bile duct and may be the gallbladder too. The gallb ladder wall shows no emphysema and no air in that region. So, from the surgical standpoint, there is no surgical intervention planned at this moment. ED/PARKER Voice ID: [id number] Report ID: [id number]
[2018-11-28 05:51] LABS: Absolute Lymphocytes (CBC) 0.8 K/uL (0.7-4.9); Basophils % 0.1 % (0-1.3); Hematocrit 35.4 % (39.6-49.0); Lymphocytes % 4.2 % (15.3-44.8); MPV 8.9 fL (7.6-11.3); RBC Red Blood Cell Count 3.77 M/uL (4.33-5.43)
[2018-11-28 06:20] LABS: Albumin 3.2 g/dL (3.4-5.0); Bilirubin Direct 0.2 mg/dL (0-0.2); Bilirubin Total 0.5 mg/dL (0.2-1.0); Potassium 4.4 mmol/L (3.5-5.1); Protein, Total 6.3 g/dL (6.4-8.2)
[2018-11-28 07:43] LABS: Blood Morphology Comment NOT SEEN (NOT SEEN); Platelet Estimate ADEQ
[2018-11-28] MEDS: CEFTRIAXONE/SWI 1gm 1 GM/10 ML SYR IV SCH ×2 (08:11→20:28)
[2018-11-28] MEDS: ASPIRIN EC 81 MG TAB PO SCH (08:11)
[2018-11-28] MEDS ORDERED: ACETAMINOPHEN PO PRN (11:41)
[2018-11-28] MEDS ORDERED: HYDROCODONE BIT PO PRN (11:41)
[2018-11-28] MEDS ORDERED: CYCLOBENZAPRINE PO PRN (11:41)
[2018-11-28] MEDS ORDERED: [UNRECOGNIZED DRUG - OTHER] PO PRN (11:41)
[2018-11-28] MEDS ORDERED: GUAIFENESIN PO PRN (11:41)
[2018-11-28] MEDS ORDERED: OXYCODONE HCL PO PRN (11:41)
[2018-11-28] MEDS ORDERED: CETIRIZINE HCL PO PRN (11:41)
[2018-11-28] MEDS ORDERED: NITROGLYCERIN 1 GM PKT TD ONE (13:27)
[2018-11-28] MEDS ORDERED: ASPIRIN 81 MG CHEWABLE TABLET PO ONE (13:39)
[2018-11-28] MEDS ORDERED: METOPROLOL TARTRATE 5 MG/5 ML INJ IV STA (14:00)
--- NOTE | 2018-11-28 15:32 | EKG ---
Test Date: 2018-11-28 Test Time: 13:32:22 Street Superintendent: COOKIE MEASUREMENT RESULTS: Intervals: Rate: 131 [place]: 150 QRSD: 76 QT: 288 QTc: 425 Ernul: P: 67 [place]: 150 QRS: -69 T: 87 INTERPRETIVE STATEMENTS: Sinus tachycardia Possible Left atrial enlargement Left anterior fascicular block Abnormal ECG Compared to ECG 11/26/2018 22:10:42 Sinus rhythm no longer present ST (T wave) deviation still present Electronically Signed On 11-28-18 15:32:40 CDT by Reymundo Higuera
[2018-11-28] MEDS ORDERED: NITROGLYCERIN 1 GM PKT TD SCH (18:00)
--- NOTE | 2018-11-28 18:03 | PN ---
Date of Progress Note: 11/28/2018 Subjective: Patient was seen this morning for followup. His was present with him at bedside. Vital signs were reviewed. Overall, he feels better today than yesterday. Today, he had lot of ques tions and I spent 30 minutes answering his questions today that included his chronic fatigue, tiredne ss problem, chronic pain due to his arthritis, shortness of breath with any activity, etc. He also h as been having pain in his chest and pain in his back going on for last several months and he had his last appointment with cassandra developer, Dr. Higuera about 3 months ago, but he did not mention to him and I have strongly encouraged him that upon discharge from the hospital, he should schedule his appoint ment with Dr. Higuera and discuss with him about his chest pain complaint that he is having. He also started worrying about after nurse informed him yesterday that I had started him on Flagyl for protoz oal infection because he has horses and they get such infection and he uses such medication. The pat jimi apparently did not remember what I had discussed with him yesterday morning when I saw him, but I was concerned about possibility of acute diverticulitis and I will be giving him antibiotics for th at and he did not remember that, but I did remind him once again today in presence of his that I am giving him antibiotics for that reason and I do not have any concerns about protozoal infection i n his case. Objective: Vital signs: Reviewed. General: He is afebrile. HEENT: Examination unremarkable. Lungs: Clear to auscultation. Heart: Sounds normal. Abdomen: Soft. Bowel sounds normal. No guarding, rigidity, distention. The patient does have some left lower quadrant tenderness and suprapubic tenderness mild. No rebound tenderness. Extremities: No leg edema. Laboratory Data: White count has gone up to 18.5 today, hemoglobin 11.8, platelets 184, 91% neutroph ils. Sodium 133, potassium 4.4, chloride 99, bicarb 25, BUN 22, creatinine 1, glucose 157. Liver fu nction tests were unremarkable except SGOT 39, total bilirubin 0.5, lipase 85. CAT scan finding disc ussed with him. Impression: 1.Rule out sepsis. 2.Probable acute diverticulitis. 3.Osteoarthritis, multiple sites. 4.Abdominal aortic aneurysm. Plan: We will go ahead and continue current antibiotics. Clinically, patient is showing improvement , even the white count has gone up. He is feeling better. I feel like by tomorrow, his WBC count sh ould look better than today. If his WBC count looks any worse tomorrow, then we will consider changi ng antibiotics. His home medications will be continued per order and I will see him tomorrow for fol lowup. Possible discharge to go home in next 1 or 2 days. Details were discussed with Dr. Nichole yesterday and his consultation is appreciated. No need for any surgical intervention. His air in th e biliary tree and gallbladder is likely a result of procedure done in the past and there is no evide nce of any infection in biliary tree or gallbladder area. WAGNER/MODL Voice ID: [id number] Report ID: [id number]
[2018-11-28] MEDS: NITROGLYCERIN 1 GM PKT TD SCH ×2 (18:22→23:48)
[2018-11-28] MEDS ORDERED: HALOPERIDOL LACT 5 MG/ML INJ IV PRN (19:43)
[2018-11-28] MEDS: QUETIAPINE 25 MG TAB PO SCH (20:28)
[2018-11-28] MEDS: ENOXAPARIN 40 MG/0.4 ML SQ SCH (20:28)
[2018-11-28] MEDS: SIMVASTATIN 20 MG TABLET PO SCH (20:31)
[2018-11-28] MEDS: METOPROLOL TARTRATE 50 MG TABLET PO SCH (20:31)
--- NOTE | 2018-11-28 20:45 | CON ---
History Of Present Illness: The patient is an 83. He came to the hospital because he had a chill. It was a rigor or intense shaking. There was sweating, chilling, nausea for a few days. Before, he had been having minimal symptoms. He came to the hospital. An attempt was made to find the source o f sepsis. He has a little bit of air in the gallbladder, probably not the source. His urine does no t look infected. His chest x-ray to me looks like it could be a pneumonia. I am not certain that [facility] radiologist call it. He has a history of coronary bypass surgery remotely. He has an abdominal ao rtic aneurysm. Consultation was done to treat this with an endovascular repair device, but the surge on declined to do it because of underlying comorbid conditions. He has a history of lung cancer. Georgina rhodes cancer was resected. I am not sure if there is any evidence of active disease now. I was called this afternoon because his heart rate was 135. It turns out that the patient's usual medications he takes include rather large doses of metoprolol and those have been not given for a few days. His sym ptoms mostly resolved when we gave a single dose of metoprolol 5 mg IV. He is now back on metoprolol tartrate 50 mg b.i.d. similar to his home medication regimen. He has also been treated with metroni dazole, ceftriaxone, and methylprednisolone in addition to his usual home medications. Medications: Home medications have been: 1.Prednisone. 2.Spironolactone. 3.Simvastatin. 4.Oxycodone. 5.Metoprolol 50 b.i.d. 6.Levothyroxine. 7.Lorazepam. 8.Hydrocodone. 9.Mucinex. 10.Duloxetine. 11.Cyclobenzaprine. 12.Plavix. 13.Multivitamin. 14.Breo Ellipta. 15.Cetirizine. 16.Multivitamin. Allergies: HE REPORTS DRUG INTOLERANCE TO PENICILLIN AND SULFA AND LEVAQUIN. Social History: He was a cigarette smoker, but has quit. Denies illegal drug use alcohol use. He i s a la-cxj-retztdr-to-resuscitate patient because of underlying lung cancer. He also has a severe an xiety disorder. Physical Examination: VITAL SIGNS: 5 feet 6 inches, 192 pounds. HEENT: Unremarkable. GENERAL: He is crying, very emotional, unable to talks very easily without breaking into tears. A l ot of the history comes from his . RESPIRATORY: The lungs reveal some crackles, especially in the right base. CARDIOVASCULAR: Heart exam is otherwise normal. No significant murmur. ABDOMEN: Soft. EXTREMITIES: Mild edema. Distal pulses diminished, but palpable. Laboratory Data: His electrocardiograms showed sinus tach with PACs. Once he got IV Lopressor, it i s now 100. We will get another EKG tomorrow. Assessment And Plan: This is not an acute coronary syndrome. It is tachycardia in the face of sepsi s, most likely from pneumonia and missing some really important heart medicines that he needs to luciano in stable. I suspect he will do well with regard to the heart as now his metoprolol has been re-esta blished and the oral nitrates he takes. Thank you very much for your kind referral of the patient. I will follow him with you. KAILEE/PARKER Voice ID: [id number] Report ID: [id number]
[2018-11-29] MEDS: METRONIDAZOLE 500mg IVPB 500 MG/100 ML BAG IV SCH ×3 (00:06→17:07)
[2018-11-29] MEDS: METHYLPREDNISOLONE 40 MG INJ IV SCH (00:06)
[2018-11-29] MEDS: LEVOTHYROXINE 100 MCG TABLET PO SCH (05:15)
[2018-11-29] MEDS: NITROGLYCERIN 1 GM PKT TD SCH ×3 (05:21→18:08)
[2018-11-29 06:06] LABS: Absolute Lymphocytes (CBC) 0.6 K/uL (0.7-4.9); Basophils % 0.1 % (0-1.3); Hematocrit 36.7 % (39.6-49.0); Lymphocytes % 3.5 % (15.3-44.8); RBC Red Blood Cell Count 3.91 M/uL (4.33-5.43)
[2018-11-29] MEDS: MORPHINE 4 MG/ML SYR IV PRN ×3 (06:23→15:12)
[2018-11-29 06:27] LABS: Magnesium 2.1 mg/dL (1.8-2.4); Potassium 4.4 mmol/L (3.5-5.1)
[2018-11-29] MEDS: CEFTRIAXONE/SWI 1gm 1 GM/10 ML SYR IV SCH ×2 (08:40→20:14)
[2018-11-29] MEDS: SPIRONOLACTONE 25 MG TABLET PO SCH (08:40)
[2018-11-29] MEDS: METOPROLOL TARTRATE 50 MG TABLET PO SCH ×2 (08:41→20:15)
[2018-11-29] MEDS: CENTRUM SILVER MEN PO SCH (08:42)
[2018-11-29] MEDS: ASPIRIN 81 MG CHEWABLE TABLET PO SCH (08:43)
[2018-11-29] MEDS: DULOXETINE DR 60 MG CAPSULE PO SCH (08:43)
[2018-11-29] MEDS ORDERED: LORAZEPAM PO SCH (09:00)
[2018-11-29] MEDS ORDERED: B COMPLEX WITH VITAMIN C PO SCH (09:00)
--- NOTE | 2018-11-29 09:33 | EKG ---
Test Date: 2018-11-28 Test Time: 13:33:03 Seat Joiner Chainstitch: COOKIE MEASUREMENT RESULTS: Intervals: Rate: 135 CA: 150 QRSD: 74 QT: 278 QTc: 417 [place]: P: 37 CA: 150 QRS: -65 T: 66 INTERPRETIVE STATEMENTS: Sinus tachycardia with premature atrial complexes Possible Left atrial enlargement Left axis deviation Inferior-posterior infarct, age undetermined Abnormal ECG Compared to ECG 11/28/2018 13:32:22 Atrial premature complex(es) now present Electronically Signed On 11-29-18 09:32:55 CDT by Reymundo Higuera
[2018-11-29] MEDS: predniSONE 20 MG TAB PO SCH (09:59)
--- NOTE | 2018-11-29 13:02 | PN ---
Mr. Morales is doing well today. Whatever infection he had, most likely pneumonia, seems to be impr oving. His heart rate is better. I think he had a combination of sepsis, pneumonia and beta-jesus withdrawal causing tachycardia that really frightened him. He has severe underlying anxiety disorde r, so I encouraged him to try not to ever miss beta-blockers in the future. KAILEE/PARKER Voice ID: [id number] Report ID: [id number]
--- NOTE | 2018-11-29 13:04 | RAD REPORT ---
EXAM DESCRIPTION: RAD - Chest Pa And Lat (2 Views) - 11/29/2018 11:32 am CLINICAL HISTORY: r/o pneumonia Chest pain. COMPARISON: Chest Single View dated 11/26/2018; Chest Pa And Lat (2 Views) dated 10/28/2018; Chest Pa An d Lat (2 Views) dated 02/16/2018; CHEST SINGLE VIEW dated 06/05/2015; Abdomen Pelvis Wo Contrast kate ed 11/27/2018 FINDINGS: Emphysematous changes are present throughout the lungs. Elevated right hemidiaphragm is no rakesh, chronic. No focal infiltrate detected. Postsurgical changes prior CABG noted. Sternotomy wires e vident.
--- NOTE | 2018-11-29 16:38 | PN ---
Date of Progress Note: 11/29/2018 Subjective: Patient was seen this morning for followup. He was sitting at bedside, feeling much bet ter and in his own words the way he describes today "I feel 200% better." Yesterday evening, he had some confusion and nurse reported that the patient had not slept well almost 2 nights. Earlier yeste rd afternoon, he was agitated. Heart rate was up around 160 to 170. Blood pressure was up and at that time nitroglycerin paste was ordered and he actually got better. Cardiology consultation was al so requested for the patient. This morning, he denies any chest pain. No shortness of breath. No n ausea or vomiting. Objective: Vital signs: Reviewed. HEENT: Unremarkable. Lungs: Clear to auscultation. Heart: Sounds normal. Abdomen: Soft. Bowel sounds normal. No guarding, rigidity, tenderness, or distention except very m inimum suprapubic and left lower quadrant tenderness, which is better today than yesterday. Extremities: No leg edema. Laboratory Data: White count 18.2 today, yesterday it was 18.5. Hemoglobin today 12.3, platelets 20 1. Sodium 137, potassium 4.4, chloride 104, bicarb 25, BUN 25, creatinine 1.05, glucose 130. Procal citonin 6.30. All the cultures remained negative so far. Impression: 1.Probable acute diverticulitis. 2.Rule out pneumonia. 3.Chronic obstructive pulmonary disease. 4.Abdominal aortic aneurysm. 5.Hypertension. Plan: We will go ahead and repeat chest x-ray today. Continue current antibiotics, ceftriaxone and metronidazole. His procalcitonin level has slightly gone up today compared to previous level. White count is slightly better, but no significant change compared to yesterday. Clinically, he is feelin g much better. So what we will do is, we will continue current antibiotics at this point. Repeat bl ood work tomorrow and hopefully by tomorrow his white blood count and procalcitonin should start show ing improvement. I will discontinue his IV steroid and start him on oral prednisone 20 mg daily per order. Details and plan of treatment discussed with the patient. WAGNER/MODL Voice ID: [id number] Report ID: [id number]
[2018-11-29] MEDS: ENOXAPARIN 40 MG/0.4 ML SQ SCH (20:14)
[2018-11-29] MEDS: QUETIAPINE 25 MG TAB PO SCH (20:15)
[2018-11-29] MEDS: SIMVASTATIN 20 MG TABLET PO SCH (20:15)
[2018-11-30] MEDS: NITROGLYCERIN 1 GM PKT TD SCH ×5 (00:25→23:09)
[2018-11-30] MEDS: MORPHINE 4 MG/ML SYR IV PRN ×5 (00:26→23:18)
[2018-11-30] MEDS: METRONIDAZOLE 500mg IVPB 500 MG/100 ML BAG IV SCH ×3 (00:26→18:04)
[2018-11-30 04:45] LABS: Basophils % 0.1 % (0-1.3); Hematocrit 32.8 % (39.6-49.0); Lymphocytes % 12.5 % (15.3-44.8); MPV 9.2 fL (7.6-11.3); RBC Red Blood Cell Count 3.53 M/uL (4.33-5.43)
[2018-11-30 05:10] LABS: Potassium 4.3 mmol/L (3.5-5.1)
[2018-11-30] MEDS: LEVOTHYROXINE 100 MCG TABLET PO SCH (05:56)
[2018-11-30] MEDS: CEFTRIAXONE/SWI 1gm 1 GM/10 ML SYR IV SCH ×2 (08:34→20:56)
[2018-11-30] MEDS: CENTRUM SILVER MEN PO SCH (10:21)
[2018-11-30] MEDS: DULOXETINE DR 60 MG CAPSULE PO SCH (10:23)
[2018-11-30] MEDS: METOPROLOL TARTRATE 50 MG TABLET PO SCH ×2 (10:24→20:59)
--- NOTE | 2018-11-30 10:24 | P.PN ---
Subjective Date of Service: 11/30/18 Subjective: Ambulating, Improving, Doing well Review of Systems Respiratory: Shortness of Breath (no) Gastrointestinal: Nausea (no0), Vomiting (no), Diarrhea (no), No Distention, Melena (no), Hematochezia (no) Genitourinary: Dysuria (no) Physical Examination - Vital Signs Temperature: 97.1 F Blood Pressure: 185/88 Pulse: 64 Respirations: 20 Pulse Ox (%): 99 - Physical Exam General: Alert, Oriented x3, Cooperative Neck: Supple Gastrointestinal: Soft and benign (no murphys sign), No rebound, No guarding, Other (LLQ pain improved) Assessment And Plan - Plan continue diet f/u with his vascular surgeon for AAA options.
[2018-11-30] MEDS: SPIRONOLACTONE 25 MG TABLET PO SCH (10:26)
[2018-11-30] MEDS: ASPIRIN 81 MG CHEWABLE TABLET PO SCH (10:29)
[2018-11-30] MEDS: predniSONE 20 MG TAB PO SCH (10:29)
[2018-11-30] MEDS: SIMVASTATIN 20 MG TABLET PO SCH (20:53)
[2018-11-30] MEDS: QUETIAPINE 25 MG TAB PO SCH (20:58)
[2018-11-30] MEDS: ENOXAPARIN 40 MG/0.4 ML SQ SCH (21:00)
[2018-12-01] MEDS: METRONIDAZOLE 500mg IVPB 500 MG/100 ML BAG IV SCH ×3 (00:01→17:23)
--- NOTE | 2018-12-01 01:31 | PN ---
Patient admitted by Dr. Gomez on 11/27/2018. He has been followed by Dr. Higuera for sinus tachycardia, presumably secondary to diverticulitis and possible sepsis. He was back on beta jesus for about 48 hours now. He has a history of abdominal aortic aneurysm, anxiety, lung cancer, and history of CABG. Today, he is in sinus rhythm, heart rate in the 80s. No specific complaint. We will continue his present regimen as is with beta-blockers a nd medication for diverticulitis. Hopefully, he will be going home in the next day or 2. I will sig n off his case for now. We will see him in the office as an outpatient. RISSA/PARKER Voice ID: [id number] Report ID: [id number]
--- NOTE | 2018-12-01 01:46 | PN ---
Date of Progress Note: 11/30/2018 Subjective: Patient was seen this morning for followup. Patient's was present with him at beds kadi. He did sleep better last night. No new complaints or problems reported. Continues to have sup rapubic and left lower quadrant abdominal pain. No nausea, no vomiting. Objective: Vital Signs: Reviewed. HEENT: Unremarkable. Lungs: Clear to auscultation. Heart: Sounds normal. Abdomen: Soft. Bowel sounds normal. No guarding, rigidity. Minimum tenderness in left lower quadr ant in suprapubic region, unchanged from yesterday but better than day before. Extremities: No leg edema. Laboratory Data: White count is better today, it is down to 16.3, hemoglobin is 11.1, platelets 180. Sodium 139, potassium 4.3, chloride 104, bicarb 28, BUN 27, creatinine 1.05, glucose 92, procalcito courtney 3.09. Impression: 1.Probable acute diverticulitis. 2.Chronic obstructive pulmonary disease. 3.Hypertension. 4.Hypothyroidism. 5.Anemia, unspecified. 6.Osteoarthritis, multiple sites. Plan: We will continue current antibiotics. Plan is to continue both ceftriaxone and metronidazole at present dose. We will repeat blood work day after tomorrow. Possible discharge to go home probab ly by of this week depending on his condition. Continue other current medications and I sayra l see him tomorrow for followup. Details and plan of treatment discussed with the patient and his wi fe. During the course of day today, hydrocodone was ordered, as he takes it at home regularly and it was ordered, and also he was having some headaches, so that should help with th at. WAGNER/MODL Voice ID: [id number] Report ID: [id number]
[2018-12-01] MEDS: MORPHINE 4 MG/ML SYR IV PRN ×2 (03:13→07:07)
[2018-12-01] MEDS: NITROGLYCERIN 1 GM PKT TD SCH ×3 (05:07→17:13)
[2018-12-01] MEDS: LEVOTHYROXINE 100 MCG TABLET PO SCH (05:34)
[2018-12-01] MEDS: ASPIRIN 81 MG CHEWABLE TABLET PO SCH (09:26)
[2018-12-01] MEDS: DULOXETINE DR 60 MG CAPSULE PO SCH (09:27)
[2018-12-01] MEDS: SPIRONOLACTONE 25 MG TABLET PO SCH (09:29)
[2018-12-01] MEDS: CENTRUM SILVER MEN PO SCH (09:30)
[2018-12-01] MEDS: METOPROLOL TARTRATE 50 MG TABLET PO SCH ×2 (09:30→21:10)
[2018-12-01] MEDS: CEFTRIAXONE/SWI 1gm 1 GM/10 ML SYR IV SCH ×2 (09:33→21:11)
[2018-12-01] MEDS: HYDROCODONE/APAP 10/325 TAB PO PRN ×4 (09:34→21:11)
[2018-12-01] MEDS: PREDNISONE 10 MG PO SCH (09:53)
--- NOTE | 2018-12-01 12:49 | P.CNS ---
Date of Consult: 12/01/18 Chief Complaint: Shortness of breath History of Present Illness: Patient is 83 years of age with a history of COPD admitted with sudden onset of shortness of breath and fever evaluated him any was doing much better as far as lungs is concerned he has a some chronic lower abdominal suprapubic/air right lower quadrant discomfort for quite some time and was diagnosed with diverticulitis. Patient has done well with bronchodilators on low-dose steroids at home in addition to diuretics Allergies penicillin Allergy (Verified 04/03/17 15:51) Itching/Hives/Rash Sulfa (Sulfonamide Antibiotics) Allergy (Verified 04/03/17 15:51) Rash levofloxacin [From Levaquin] Adverse Reaction (Severe, Verified 11/27/18 01:22) tendonitis Home Medications: B Complex with Vitamin C [Super B-Complex & C] 1 tab PO DAILY 11/27/18 Cetirizine HCl [Zyrtec*] 1 tab PO DAILY PRN 11/27/18 Clopidogrel Bisulfate [Plavix*] 1 tab PO DAILY 11/27/18 Cyclobenzaprine [Flexeril*] 1 tab PO DAILY PRN 11/27/18 Duloxetine HCl 1 tab PO DAILY 11/27/18 Fluticasone/Vilanterol [Breo Ellipta 200-25 Mcg INH] 1 puff IH DAILY 11/27/18 Guaifenesin [Mucinex] 1 tab PO DAILY PRN 11/27/18 Hydrocodone Bit/Acetaminophen [Hydrocodon-Acetaminophn 10-325] 1 tab PO Q4HP PRN 11/27/18 LORazepam [Ativan*] 1 tab PO DAILY 11/27/18 Levothyroxine [Synthroid*] 1 tab PO DAILY 11/27/18 Metoprolol Tartrate [Lopressor*] 1 tab PO BID 11/27/18 Multivit-Min/FA/Lycopen/Lutein [Centrum Silver Men Tablet] 1 tab PO DAILY Oxycodone HCl 1 tab PO Q6HP PRN 11/27/18 Simvastatin 1 tab PO DAILY 11/27/18 Spironolactone [Aldactone*] 1 tab PO DAILY 11/27/18 predniSONE [Prednisone*] 10 mg PO DAILY 11/27/18 - Past Medical/Surgical History Diabetic: No -: CAD -: HTN -: lung cancer -: degnerative disc disease -: chronic back pain -: hypothryoid -: copd -: abdominal aortic anerysm -: TIA -: peripheral neuropathy, tendon problems -: osteroporosis -: sinusitis, enlarged prostate, -: bilateral cataract sx -: facial cyst removal -: L4, L5 laminectomy -: hemorrhoidectomy -: triple bypass -: orthroscopic knee -: heart cath -: prostate resection - Family History Mother History Unknown: Yes Medical History: Cancer Father Medical History: Heart disease, Lung disease - Social History Alcohol use: No CD- Drugs: No Caffeine use: Yes Place of Residence: Home Review of Systems 10-point ROS is otherwise unremarkable General: Weakness Gastrointestinal: Abdominal Pain Physical Examination Temp Pulse Resp BP Pulse Ox 97.5 F 89 16 136/70 98 12/01/18 12:00 12/01/18 12:00 12/01/18 12:00 12/01/18 12:00 12/01/18 12:00 General: Alert, Oriented x3 Neck: Supple Respiratory: Clear to auscultation bilaterally Cardiovascular: No edema, Regular rate/rhythm, Normal S1 S2 Gastrointestinal: Normal bowel sounds, No rebound, No guarding, Tenderness ( Mild tenderness suprapubic and the right lower quadrant) - Problems (1) COPD (chronic obstructive pulmonary disease) Current Visit: Yes Status: Acute Plan: Patient is 83 years of age admitted with some fever shortness of breath he does have COPD and has done well currently denies any pulmonary complaints final signs oxygenation stable the possibility of diverticulitis patient's white count is elevated chemistry unremarkable pro calcitonin level elevated patient to continue with his present bronchodilator therapy including 5 mg of prednisone he does have a AAA influenza screen is negative minimal interstitial changes visible on CT of the abdomen
[2018-12-01] MEDS: SIMVASTATIN 20 MG TABLET PO SCH (21:10)
[2018-12-01] MEDS: ENOXAPARIN 40 MG/0.4 ML SQ SCH (21:11)
[2018-12-01] MEDS: QUETIAPINE 25 MG TAB PO SCH (21:12)
--- NOTE | 2018-12-02 00:19 | PN ---
Date of Progress Note: 12/01/2018 Subjective: Patient was seen this morning for followup. No new complaints or problems reported by h im. Objective: Vital signs: Reviewed. HEENT: Unremarkable. Lungs: Clear to auscultation. Heart: Heart sounds normal. Abdomen: Soft, bowel sounds normal. No guarding, rigidity, tenderness, or distention. Extremities: No leg edema. Impression: 1.Probable acute diverticulitis. 2.Osteoarthritis, multiple sites. 3.Hypertension. 4.Hypothyroidism. 5.Chronic obstructive pulmonary disease. Plan: We will go ahead and discontinue morphine as there is no need for any stronger pain medication like morphine. Patient has his home medication which is hydrocodone ordered for him to use it on a p.r.n. basis. Continue current antibiotics. We will repeat blood work tomorrow morning and possible discharge to go home either tomorrow or day after tomorrow depending on his blood work results. Yes terday, he did cough up some mucus with blood in it and pulmonary consultation was requested from Dr. Gillis. WAGNER/PARKER Voice ID: [id number] Report ID: [id number]
[2018-12-02] MEDS: NITROGLYCERIN 1 GM PKT TD SCH ×2 (00:21→05:48)
[2018-12-02] MEDS: METRONIDAZOLE 500mg IVPB 500 MG/100 ML BAG IV SCH ×2 (00:21→09:09)
[2018-12-02 04:16] LABS: MPV 9.1 fL (7.6-11.3)
[2018-12-02 04:32] LABS: Absolute Lymphocytes (CBC) 2.4 K/uL (0.7-4.9); Basophils % 0.1 % (0-1.3); Hematocrit 37.2 % (39.6-49.0); Lymphocytes % 19.9 % (15.3-44.8); RBC Red Blood Cell Count 3.95 M/uL (4.33-5.43)
[2018-12-02 04:44] LABS: Potassium 4.3 mmol/L (3.5-5.1)
[2018-12-02] MEDS: HYDROCODONE/APAP 10/325 TAB PO PRN ×2 (05:47→09:23)
[2018-12-02] MEDS: LEVOTHYROXINE 100 MCG TABLET PO SCH (05:47)
[2018-12-02 08:10] VITALS: O2SAT 100
[2018-12-02 08:41] VITALS: BP 121/82; TEMP 97.5
[2018-12-02] MEDS: CEFTRIAXONE/SWI 1gm 1 GM/10 ML SYR IV SCH (09:11)
[2018-12-02] MEDS: ASPIRIN 81 MG CHEWABLE TABLET PO SCH (09:16)
[2018-12-02] MEDS: PREDNISONE 10 MG PO SCH (09:16)
[2018-12-02] MEDS: DULOXETINE DR 60 MG CAPSULE PO SCH (09:17)
[2018-12-02] MEDS: METOPROLOL TARTRATE 50 MG TABLET PO SCH (09:17)
[2018-12-02] MEDS: SPIRONOLACTONE 25 MG TABLET PO SCH (09:20)
[2018-12-02] MEDS: CENTRUM SILVER MEN PO SCH (09:20)
--- NOTE | 2018-12-03 19:54 | DS ---
Date of Discharge: 12/02/2018 Disposition: Discharged to go home. Physical Examination: HEENT: Unremarkable. LUNGS: Clear to auscultation. HEART: Sounds normal. ABDOMEN: Soft. Bowel sounds normal. No guarding, rigidity, tenderness, or distention. Extremities: No leg edema. Laboratory Data And Investigation Done During This Hospitalization: CAT scan of abdomen shows eviden ce of abdominal aortic aneurysm. No other acute findings. Initial white count 14.5, hemoglobin 12.8 , platelets 180. Repeat white count on 11/28/2018 was 18.5, that was the highest white count for thi s hospital admission. Last white count today 12.3, hemoglobin 12.6, platelets 207. Last chemistry t analy, sodium 138, potassium 4.3, chloride 103, bicarb 30, BUN 23, creatinine 1.03, glucose 92. Proca lcitonin 0.64 today, highest procalcitonin level 6.30 on 11/29/2018. Hospital Course: An 83-year-old very pleasant male patient with multiple comorbidities, came into em ergency room with fever and chills. Please see dictated H and P for more information. After patient was evaluated in the ER, he was admitted to the hospital. Our initial concern was to rule out sepsi s. We did not find any evidence of sepsis after appropriate workup was done. He also had volume dep letion, which was corrected with some IV fluid. His urinalysis was normal. Chest x-ray did not show any signs of pneumonia. He had left lower quadrant tenderness and I was concerned about possibility of diverticulitis. So, CAT scan of the abdomen and pelvis was done without contrast, which came meg k negative for any changes of diverticulitis; but clinically, I suspected him having diverticulitis, so he was treated for diverticulitis problem with IV antibiotics, ceftriaxone and metronidazole. Ove r period of this hospital stay, his condition improved. Abdominal pain and tenderness improved. His home medications were continued. As of yesterday, we discontinued his IV pain medication which was morphine. At home, he takes hydrocodone for chronic pain management for his arthritis, which was con tinued. Dr. Gillis was consulted as the patient reported day before yesterday that he was coughing up with some blood in mucus. Dr. Gillis did not suggest any further intervention. DNR order was written in the chart per patient's decision after I discussed with him about advance directives. Aft er the patient's condition improved, today, he was discharged to go home in stable condition with jr vieira discharge medications and instructions. Final Diagnoses: 1.Probable acute diverticulitis. 2.Volume depletion. 3.Anemia, unspecified. 4.Chronic obstructive pulmonary disease. 5.Abdominal aortic aneurysm, not ruptured. 6.Coronary artery disease. 7.Hypertension. 8.Hyperlipidemia. 9.Lung cancer. 10.Impaired fasting glucose. 11.Osteoarthritis, multiple sites. 12.Hypothyroidism. 13.Gastroesophageal reflux disease. 14.Depression. Discharge Medications And Instructions: 1.Continue all prior home medications. 2.Take cefuroxime 250 mg twice a day for 1 week and metronidazole 500 mg 3 times a day for 1 week, t lili it with food. 3.Follow up at my office in 2 weeks. WAGNER/PARKER Voice ID: [id number] Report ID: [id number]
== END 2018-12-02 11:07 | disposition home or self-care (01) | DRG 392 ==
LOC: ER 22:01 → INTOOBSV 11-27 00:11 → ERHOLD 11-27 00:11 → OBSVTOIN 11-27 00:11 → 4TH 11-27 00:55 → OBSVTOIN 11-27 08:43
PROVIDERS: ADMIT Internal Medicine; ATTEND Internal Medicine
DX: K57.92 Diverticulitis of intestine, part unspecified, without perforation or abscess without bleeding (principal); E86.9 Volume depletion, unspecified; M19.90 Unspecified osteoarthritis, unspecified site; D64.9 Anemia, unspecified; J44.9 Chronic obstructive pulmonary disease, unspecified; I71.4 Abdominal aortic aneurysm, without rupture; I25.10 Atherosclerotic heart disease of native coronary artery without angina pectoris; I10 Essential (primary) hypertension; E78.5 Hyperlipidemia, unspecified; E03.9 Hypothyroidism, unspecified; K21.9 Gastro-esophageal reflux disease without esophagitis; F32.9 Major depressive disorder, single episode, unspecified; Z88.0 Allergy status to penicillin; Z88.2 Allergy status to sulfonamides; Z85.118 Personal history of other malignant neoplasm of bronchus and lung
CPT/HCPCS: 36415; 71045; 71046; 74176; 80048; 80076; 81003; 82150; 83605; 83690; 83735; 83880; 84145; 84484; 85025; 85610; 87040; 87804; 93005; 94760; 96365; 96367; 96368; 96375; 99285; G0378; J0456; J0696; J1650; J2405; J2920; J3475; J7512

== ENCOUNTER 2018-12-20 10:59 | Emergency (ER) | payer OTHER ==
[2018-12-20] MEDS ORDERED: ONDANSETRON 4 MG/2 ML VIAL ONE (11:32)
[2018-12-20] MEDS ORDERED: MORPHINE 4 MG/ML SYR ONE (11:32)
[2018-12-20] MEDS ORDERED: NA CHLORIDE 0.9% 0 ML ONE (11:33)
[2018-12-20 11:51] LABS: Absolute Lymphocytes (CBC) 0.6 K/uL (0.7-4.9); Basophils % 0.4 % (0-1.3); Hematocrit 36.4 % (39.6-49.0); Lymphocytes % 6.8 % (15.3-44.8); MPV 8.6 fL (7.6-11.3)
[2018-12-20 12:11] LABS: Albumin 3.5 g/dL (3.4-5.0); Bilirubin Direct 0.2 mg/dL (0-0.2); Bilirubin Total 0.7 mg/dL (0.2-1.0); Potassium 4.2 mmol/L (3.5-5.1); Protein, Total 6.2 g/dL (6.4-8.2)
[2018-12-20 12:54] LABS: Blood Morphology Comment NOT SEEN (NOT SEEN); Platelet Estimate ADEQ; Urine White Blood Cell Casts OK
[2018-12-20] MEDS ORDERED: NA CHLORIDE 0.9% 1,000 ML ONE (13:02)
[2018-12-20] MEDS ORDERED: ACETAMINOPHEN 500 MG TAB ONE (13:23)
[2018-12-20] MEDS ORDERED: HYDROCODONE/APAP 5/325 MG TAB ONE (13:35)
--- NOTE | 2018-12-20 14:31 | RAD REPORT ---
EXAM DESCRIPTION: RAD - Chest Single View - 12/20/2018 2:11 pm CLINICAL HISTORY: Fever and chills COMPARISON: November 29 TECHNIQUE: AP portable chest image was obtained 1408 hours . FINDINGS: Lung volumes are diminished compared to comparison. Patient has a baseline interstitial pa ttern is prominent. No new mass or consolidations seen. Trachea is midline. Sternotomy wires are in p lace. No acute or focal consolidations seen. No measurable pleural effusion and no pneumothorax. No a cute bony abnormality seen. No acute aortic findings suspected. IMPRESSION: Shallow inspiration limited portable examination not substantially different from compar lisa. Early interstitial edema or infiltrate can be masked by the chronic pattern.
--- NOTE | 2018-12-20 14:56 | EDPHYS ---
Physician Documentation [facility] Name: Pedro Morales Age: 83 yrs Sex: Male : 1935 Arrival Date: 12/20/2018 Time: 11:04 Bed 8 Private MD: ED Physician Kishan Groves HPI: 12/20 12:05 This 83 yrs old Male presents to ER via EMS with complaints of Fever. pm1 12:05 The patient reports fever, not measured (subjective), with chills. Onset: The pm1 symptoms/episode began/occurred yesterday. Modifying factors: there are no obvious modifying factors. Associated signs and symptoms: Pertinent negatives: abdominal pain, cough, diarrhea, nausea, skin rash, shortness of breath, vomiting. Severity of symptoms: in the emergency department the symptoms have improved no fever with EMS on arrival and at the ER. The patient has been recently been admitted at [facility], was discharged a couple of weeks ago, possible diverticulitis and discharged home with antibiotics that he completed. Patient without any abdominal pain. Patient with back pain that is no different that his chronic back pain. Historical: - Allergies: 11:25 Levaquin; ph 11:25 PENICILLINS; ph 11:25 Sulfa (Sulfonamide Antibiotics); ph - Home Meds: 11:25 Breo Ellipta 200-25 mcg/dose inhalation dsdv 1 puff every 4 hours [Active]; Centrum ph Silver Oral daily [Active]; cyclobenzaprine 10 mg Oral tab daily [Active]; duloxetine 60 mg Oral cpDR 1 cap once daily [Active]; fluorometholone 0.1 % ophthalmic drps 1 drop 2 times per day [Active]; levothyroxine 100 mcg tab 1 tab once daily [Active]; lorazepam 0.5 mg Oral tab nightly [Active]; metoprolol tartrate 50 mg Oral tab 1 tab 2 times per day [Active]; Cantil 10-325 mg Oral tab 1 tab every 4 hours for Pain [Active]; Plavix 75 mg Oral tab 1 tab once daily [Active]; prednisone 10 mg Oral tab once daily [Active]; simvastatin 20 mg Oral tab nightly [Active]; spironolactone 25 mg Oral tab 1 tab once daily [Active]; - PMHx: 11:25 AAA; Back pain; COPD; Degenerative disc disease; Lung Cancer; TIA; ph - PSHx: 11:25 Knee surgery; cataracts; ph 11:26 R upper lobectomy; laminectomy; ph - Immunization history:: Flu vaccine status is unknown. - Social history:: Smoking status: Patient/guardian denies using tobacco. - Ebola Screening: : No symptoms or risks identified at this time. ROS: 12:05 Eyes: Negative for injury, pain, redness, and discharge, ENT: Negative for injury, pm1 pain, and discharge, Neck: Negative for injury, pain, and swelling, Cardiovascular: Negative for chest pain, palpitations, and edema, Respiratory: Negative for shortness of breath, cough, wheezing, and pleuritic chest pain, Abdomen/GI: Negative for abdominal pain, nausea, vomiting, diarrhea, and constipation. 12:05 : Negative for injury, bleeding, discharge, and swelling, MS/Extremity: Negative for injury and deformity, Skin: Negative for injury, rash, and discoloration, Neuro: Negative for headache, weakness, numbness, tingling, and seizure. 12:05 Constitutional: Positive for chills, fever, Negative for poor PO intake. 12:05 Back: Positive for of the low back area. Exam: 12:05 Constitutional: This is a well developed, well nourished patient who is awake, alert, pm1 and in no acute distress. Head/Face: Normocephalic, atraumatic. Eyes: Pupils equal round and reactive to light, extra-ocular motions intact. Lids and lashes normal. Conjunctiva and sclera are non-icteric and not injected. Cornea within normal limits. Periorbital areas with no swelling, redness, or edema. ENT: Nares patent. No nasal discharge, no septal abnormalities noted. Tympanic membranes are normal and external auditory canals are clear. Oropharynx with no redness, swelling, or masses, exudates, or evidence of obstruction, uvula midline. Mucous membranes moist. Neck: Trachea midline, no thyromegaly or masses palpated, and no cervical lymphadenopathy. Supple, full range of motion without nuchal rigidity, or vertebral point tenderness. No Meningismus. Chest/axilla: Normal chest wall appearance and motion. Nontender with no deformity. No lesions are appreciated. Respiratory: Lungs have equal breath sounds bilaterally, clear to auscultation and percussion. No rales, rhonchi or wheezes noted. No increased work of breathing, no retractions or nasal flaring. Abdomen/GI: Soft, non-tender, with normal bowel sounds. No distension or tympany. No guarding or rebound. No evidence of tenderness throughout. Back: No spinal tenderness. No costovertebral tenderness. Full range of motion. Skin: Warm, dry with normal turgor. Normal color with no rashes, no lesions, and no evidence of cellulitis. MS/ Extremity: Pulses equal, no cyanosis. Neurovascular intact. Full, normal range of motion. 12:05 Cardiovascular: Rate: normal, Heart sounds: normal, Edema: pedal edema, that is mild. 12:05 Neuro: Orientation: is normal, Motor: is normal, moves all fours. Vital Signs: 11:17 BP 184 / 59; Pulse 84; Resp 18; Temp 98.7(O); Pulse Ox 98% on R/A; ph 12:00 BP 97 / 50; Pulse 81; Resp 22; Pulse Ox 100% ; sv 12:30 BP 119 / 60; Pulse 83; Resp 21; Pulse Ox 99% ; sv 13:09 BP 117 / 59; Pulse 81; Resp 18; Temp 100.7(TE); Pulse Ox 98% on 3 lpm NC; mg2 14:38 BP 100 / 49; Pulse 76; Resp 18; Temp 98.3; Pulse Ox 100% on R/A; mg2 15:35 BP 110 / 50; Pulse 80; Resp 18; Temp 98; Pulse Ox 100% on R/A; mg2 MDM: 11:12 Patient medically screened. pm1 14:53 Data reviewed: vital signs. Data interpreted: Pulse oximetry: on room air is 100 %. pm1 Interpretation: normal. Counseling: I had a detailed discussion with the patient and/or guardian regarding: the historical points, exam findings, and any diagnostic results supporting the discharge/admit diagnosis, lab results, radiology results, the need for outpatient follow up, to return to the emergency department if symptoms worsen or persist or if there are any questions or concerns that arise at home. 15:40 ED course: Patient denied cough on initial presentation. No chest pain or shortness of pm1 breath. reports that he has had a nonproductive cough. Patient without shortness of breath. He has breathing treatment, steroids, and expectorant as home medications already. Due to history of COPD and fever, will discharge the patient home with antibiotics. 12/20 11:26 Order name: Flu; Complete Time: 12:24 pm1 12/20 11:28 Order name: Basic Metabolic Panel; Complete Time: 12:24 pm1 12/20 11:28 Order name: CBC with Diff; Complete Time: 13:02 pm1 12/20 11:28 Order name: Hepatic Function; Complete Time: 12:24 pm1 12/20 11:28 Order name: Procalcitonin; Complete Time: 12:24 pm1 12/20 11:28 Order name: Lactate; Complete Time: 12:24 pm1 12/20 12:55 Order name: CBC Smear Scan; Complete Time: 13:02 EDMS 12/20 14:08 Order name: Chest Single View; Complete Time: 14:36 EDMS 12/20 11:28 Order name: IV Saline Lock; Complete Time: 11:36 pm1 12/20 11:28 Order name: Labs collected and sent; Complete Time: 11:36 pm1 Administered Medications: 11:45 Drug: morphine 4 mg Route: IVP; Site: right antecubital; dw 13:09 Follow up: Response: No adverse reaction mg2 11:45 Drug: Zofran 4 mg Route: IVP; Site: right antecubital; dw 13:09 Follow up: Response: No adverse reaction mg2 13:09 Drug: NS 0.9% 500 ml Route: IV; Rate: bolus; Site: right forearm; mg2 15:09 Follow up: Response: No adverse reaction; IV Status: Completed infusion; IV Intake: mg2 500ml 13:31 Not Given (Physician Discretion): Tylenol 1000 mg PO once pm1 13:38 Drug: Cantil 5 mg-325 mg 2 tabs Route: PO; mg2 15:09 Follow up: Response: No adverse reaction; Marked relief of symptoms mg2 15:39 Drug: Rocephin 1 grams Route: IV; Rate: calculated rate; Site: right antecubital; mg2 15:39 Follow up: Response: No adverse reaction; IV Status: Completed infusion mg2 Disposition: 12/21 08:06 Co-signature as Attending Physician, Kishan Groves MD I agree with the assessment and lucy plan of care. Disposition: 12/20/18 14:55 Discharged to Home. Impression: Chronic obstructive pulmonary disease, unspecified. - Condition is Stable. - Discharge Instructions: Chronic Obstructive Pulmonary Disease, Cough, Adult. - Prescriptions for Zithromax Z- Mikal 250 mg Oral Tablet - take 1 tablet by ORAL route as directed for 5 days Day 1 - take two (2) tablets one time. Day 2, 3, 4 , 5 take one (1) tablet once daily.; 6 tablet. - Medication Reconciliation Form, Thank You Letter, Antibiotic Education, Prescription Opioid Use form. - Follow up: Emergency Department; When: As needed; Reason: Worsening of condition. Follow up: Private Physician; When: 2 - 3 days; Reason: Recheck today's complaints, Continuance of care, Re-evaluation by your physician. - Problem is new. - Symptoms have improved. Signatures: Dispatcher [employer] [facility] Trisha Heart RN RN Kishan Yates MD MD cha Hall, Patricia, RN RN ph Marinas, Patrick, NP [employer] pm1 Sushant Lopez RN RN mg2 Corrections: (The following items were deleted from the chart) 12/20 14:08 13:21 Chest Pa And Lat (2 Views)+[email or web address] ordered. [facility] 15:01 14:55 12/20/2018 14:55 Discharged to Home. Impression: Acute upper respiratory pm1 infection, unspecified. Condition is Stable. Forms are Medication Reconciliation Form, Thank You Letter, Antibiotic Education, Prescription Opioid Use. Follow up: Emergency Department; When: As needed; Reason: Worsening of condition. Follow up: Private Physician; When: 2 - 3 days; Reason: Recheck today's complaints, Continuance of care, Re-evaluation by your physician. Problem is new. Symptoms have improved. pm1 15:56 15:01 12/20/2018 14:55 Discharged to Home. Impression: Chronic obstructive pulmonary mg2 disease, unspecified. Condition is Stable. Discharge Instructions: Upper Respiratory Infection, Adult. Prescriptions for Zithromax Z-Mikal 250 mg Oral Tablet - take 1 tablet by ORAL route as directed for 5 days Day 1 - take two (2) tablets one time. Day 2, 3, 4 , 5 take one (1) tablet once daily.; 6 tablet. and Forms are Medication Reconciliation Form, Thank You Letter, Antibiotic Education, Prescription Opioid Use. Follow up: Emergency Department; When: As needed; Reason: Worsening of condition. Follow up: Private Physician; When: 2 - 3 days; Reason: Recheck today's complaints, Continuance of care, Re-evaluation by your physician. Problem is new. Symptoms have improved. pm1
--- NOTE | 2018-12-20 14:56 | ER ---
Nurse's Notes [facility] Name: Pedro Morales Age: 83 yrs Sex: Male : 1935 Arrival Date: 12/20/2018 Time: 11:04 Bed 8 Private MD: Diagnosis: Chronic obstructive pulmonary disease, unspecified Presentation: 12/20 11:22 Presenting complaint: EMS states: C/O leg [pain, fever and chills, BP 180/104, HR 85, ph Spo2 100% RA. Transition of care: patient was not received from another setting of care. Onset of symptoms was December 20, 2018. Risk Assessment: Do you want to hurt yourself or someone else? Patient reports no desire to harm self or others. Initial Sepsis Screen: Does the patient meet any 2 criteria? No. Patient's initial sepsis screen is negative. Does the patient have a suspected source of infection? No. Patient's initial sepsis screen is negative. Care prior to arrival: None. 11:22 Method Of Arrival: EMS: [facility] ph 11:22 Acuity: ZACHERY 3 ph Historical: - Allergies: 11:25 Levaquin; ph 11:25 PENICILLINS; ph 11:25 Sulfa (Sulfonamide Antibiotics); ph - Home Meds: 11:25 Breo Ellipta 200-25 mcg/dose inhalation dsdv 1 puff every 4 hours [Active]; Centrum ph Silver Oral daily [Active]; cyclobenzaprine 10 mg Oral tab daily [Active]; duloxetine 60 mg Oral cpDR 1 cap once daily [Active]; fluorometholone 0.1 % ophthalmic drps 1 drop 2 times per day [Active]; levothyroxine 100 mcg tab 1 tab once daily [Active]; lorazepam 0.5 mg Oral tab nightly [Active]; metoprolol tartrate 50 mg Oral tab 1 tab 2 times per day [Active]; Sweetser 10-325 mg Oral tab 1 tab every 4 hours for Pain [Active]; Plavix 75 mg Oral tab 1 tab once daily [Active]; prednisone 10 mg Oral tab once daily [Active]; simvastatin 20 mg Oral tab nightly [Active]; spironolactone 25 mg Oral tab 1 tab once daily [Active]; - PMHx: 11:25 AAA; Back pain; COPD; Degenerative disc disease; Lung Cancer; TIA; ph - PSHx: 11:25 Knee surgery; cataracts; ph 11:26 R upper lobectomy; laminectomy; ph - Immunization history:: Flu vaccine status is unknown. - Social history:: Smoking status: Patient/guardian denies using tobacco. - Ebola Screening: : No symptoms or risks identified at this time. Screenin:26 Abuse screen: Denies threats or abuse. Denies injuries from another. Nutritional ph screening: No deficits noted. Tuberculosis screening: No symptoms or risk factors identified. Fall Risk No fall in past 12 months (0 pts). No secondary diagnosis (0 pts). Ambulatory Aid- None/Bed Rest/Nurse Assist (0 pts). Gait- Weak (10 pts.). Mental Status- Oriented to own ability (0 pts). Total Macias Fall Scale indicates Low Risk Score (25-44 pts). Fall prevention measures have been instituted. Side Rails Up X 2 Placed close to Nursing Station Frequent Obs/Assesments occuring Family Present and informed to notify staff if they need to leave bedside As available Patient and Family Educated on Fall Prevention Program and strategies. Assessment: 13:38 General: Appears in no apparent distress. comfortable, Behavior is calm, cooperative. mg2 Pain: Complains of pain in back Pain does not radiate. Pain currently is 5 out of 10 on a pain scale. Quality of pain is described as aching, Pain began gradually, Is intermittent. Neuro: Level of Consciousness is awake, alert, obeys commands, Oriented to person, place, time, situation. Cardiovascular: Capillary refill < 3 seconds Patient's skin is warm and dry. Respiratory: Airway is patent Respiratory effort is even, unlabored, Respiratory pattern is regular, symmetrical. GI: No signs and/or symptoms were reported involving the gastrointestinal system. : No signs and/or symptoms were reported regarding the genitourinary system. EENT: No signs and/or symptoms were reported regarding the EENT system. Derm: Skin is intact, is healthy with good turgor, Skin is pink, warm \T\ dry. normal. Musculoskeletal: Circulation, motion, and sensation intact. Capillary refill < 3 seconds, Reports pain in back. 14:02 Reassessment: provider informed about the temperature and lumbar pain of the patient, mg2 he ordered to do xray and meds for pain and fever. Vital Signs: 11:17 BP 184 / 59; Pulse 84; Resp 18; Temp 98.7(O); Pulse Ox 98% on R/A; ph 12:00 BP 97 / 50; Pulse 81; Resp 22; Pulse Ox 100% ; sv 12:30 BP 119 / 60; Pulse 83; Resp 21; Pulse Ox 99% ; sv 13:09 BP 117 / 59; Pulse 81; Resp 18; Temp 100.7(TE); Pulse Ox 98% on 3 lpm NC; mg2 14:38 BP 100 / 49; Pulse 76; Resp 18; Temp 98.3; Pulse Ox 100% on R/A; mg2 15:35 BP 110 / 50; Pulse 80; Resp 18; Temp 98; Pulse Ox 100% on R/A; mg2 ED Course: 11:04 Patient arrived in ED. cp 11:06 Jc Cooper NP is PHCP. pm1 11:06 Kishan Groves MD is Attending Physician. pm1 11:23 Triage completed. ph 11:24 Maribell Mccall, KAYLYN is Primary Nurse. sv 11:27 Arm band placed on. ph 11:28 Patient has correct armband on for positive identification. Placed in gown. Bed in low ph position. Call light in reach. Side rails up X 1. security monitor on. Pulse ox on. NIBP on. 11:35 Flu and/or RSV swab sent to lab. ms 11:52 Basic Metabolic Panel Sent. dw 11:52 CBC with Diff Sent. dw 11:52 Hepatic Function Sent. dw 11:53 Lactate Sent. dw 11:53 Procalcitonin Sent. dw 12:30 Report given to Sushant PATIÑO. sv 12:30 Inserted saline lock: 20 gauge in right antecubital area, using aseptic technique. mg2 Blood collected. by nurse. 14:04 No provider procedures requiring assistance completed. mg2 14:10 Chest Single View In Process Unspecified. EDMS 15:39 Sushant Lopez, KAYLYN is Primary Nurse. mg2 15:55 IV discontinued, intact, bleeding controlled, No redness/swelling at site. Pressure mg2 dressing applied. Administered Medications: 11:45 Drug: morphine 4 mg Route: IVP; Site: right antecubital; dw 13:09 Follow up: Response: No adverse reaction mg2 11:45 Drug: Zofran 4 mg Route: IVP; Site: right antecubital; dw 13:09 Follow up: Response: No adverse reaction mg2 13:09 Drug: NS 0.9% 500 ml Route: IV; Rate: bolus; Site: right forearm; mg2 15:09 Follow up: Response: No adverse reaction; IV Status: Completed infusion; IV Intake: mg2 500ml 13:31 Not Given (Physician Discretion): Tylenol 1000 mg PO once pm1 13:38 Drug: Sweetser 5 mg-325 mg 2 tabs Route: PO; mg2 15:09 Follow up: Response: No adverse reaction; Marked relief of symptoms mg2 15:39 Drug: Rocephin 1 grams Route: IV; Rate: calculated rate; Site: right antecubital; mg2 15:39 Follow up: Response: No adverse reaction; IV Status: Completed infusion mg2 Intake: 15:09 IV: 500ml; Total: 500ml. mg2 Outcome: 14:55 Discharge ordered by MD. pm1 15:55 Discharged to home via wheelchair, with family. mg2 15:55 Condition: stable 15:55 Discharge instructions given to patient, family, Instructed on discharge instructions, follow up and referral plans. medication usage, Demonstrated understanding of instructions, follow-up care, medications, Prescriptions given X 1. 15:56 Patient left the ED. mg2 Signatures: Dispatcher [employer] EDMS Maribell Mccall RN RN sv Woody, Diana, RN RN dw Solis, Maria ms Hall, Patricia, RN RN ph Kishan Patino PA PA cp Marinas, Patrick, LAUREEN OIL LEASE BROKER pm1 Sushant Lopez RN RN mg2 Corrections: (The following items were deleted from the chart) 11:28 11:17 BP 184 / 59; Pulse 84bpm; Resp 18bpm; Pulse Ox 98% RA; ph ph
[2018-12-20] MEDS ORDERED: CEFTRIAXONE/SWI 1gm 1 GM/10 ML SYR ONE (15:12)
[2018-12-20 16:07] VITALS: O2SAT 100
[2018-12-20 16:08] VITALS: BP 110/50; TEMP 98
== END 2018-12-20 15:56 | disposition home or self-care (01) ==
LOC: ER 10:59
DX: J44.9 Chronic obstructive pulmonary disease, unspecified (principal); Z88.0 Allergy status to penicillin; Z88.1 Allergy status to other antibiotic agents; Z88.2 Allergy status to sulfonamides; Z85.118 Personal history of other malignant neoplasm of bronchus and lung
CPT/HCPCS: 36415; 71045; 80048; 80076; 83605; 84145; 85025; 87804; 96361; 96374; 96375; 99285; J0696; J2405; J7030

== ENCOUNTER 2018-12-21 05:53 | Inpatient (IN) | payer OTHER ==
[2018-12-21 07:02] LABS: Absolute Lymphocytes (CBC) 0.8 K/uL (0.7-4.9); Basophils % 0.2 % (0-1.3); Hematocrit 33.3 % (39.6-49.0); MPV 8.7 fL (7.6-11.3); RBC Red Blood Cell Count 3.57 M/uL (4.33-5.43)
[2018-12-21 07:10] LABS: Protime INR 1.02
[2018-12-21 07:13] LABS: Albumin 3.1 g/dL (3.4-5.0); Bilirubin Direct 0.3 mg/dL (0-0.2); Bilirubin Total 0.7 mg/dL (0.2-1.0); Magnesium 1.9 mg/dL (1.8-2.4); Potassium 3.9 mmol/L (3.5-5.1); Protein, Total 5.8 g/dL (6.4-8.2); Troponin (Emerg Dept Use Only) 0.05 ng/mL (0.0-0.045)
[2018-12-21] MEDS ORDERED: NA CHLORIDE 0.9% 500 ML ONE (07:30)
[2018-12-21] MEDS ORDERED: OSELTAMIVIR 75 MG CAP PO ONE (07:37)
[2018-12-21 08:12] LABS: Urine Blood NEGATIVE (NEG); Urine Glucose NEGATIVE (NEG); Urine Protein NEGATIVE (NEG); Urine Specific Gravity 1.015 (1.005-1.030); Urine pH 6.5 (5.0-7.0)
[2018-12-21 08:18] LABS: Blood Morphology Comment NOT SEEN (NOT SEEN); Platelet Estimate ADEQ
[2018-12-21] MEDS ORDERED: AZITHROMYCIN IV 500 MG in NA CHLORIDE 0.9% 250 ML IVPB ONE (09:00)
[2018-12-21] MEDS ORDERED: CEFTRIAXONE/SWI 1gm 1 GM/10 ML SYR IV ONE (10:00)
[2018-12-21] MEDS ORDERED: ACETAMINOPHEN 500 MG TAB PO PRN (10:08)
[2018-12-21] MEDS ORDERED: OSELTAMIVIR 75 MG CAP PO SCH (10:08)
[2018-12-21 10:36] VITALS: BMI 31.0
--- NOTE | 2018-12-21 11:15 | RAD REPORT ---
EXAM DESCRIPTION: RAD CHEST SINGLE VIEW CLINICAL HISTORY: Fever and cough COMPARISON: 12/20/2018 TECHNIQUE: Portable chest radiograph FINDINGS: Mild interstitial pulmonary edema. The heart is mildly enlarged in size. 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 IMPRESSION: Mild CHF
[2018-12-21] MEDS ORDERED: PNEUMOCOCCAL VACCINE 0.5 ML IMVAC ONE (12:00)
[2018-12-21] MEDS ORDERED: INFLUENZA VACCINE (for 3y+) 0.5 ML DOSE IMVAC ONE (12:00)
[2018-12-21] MEDS: CEFTRIAXONE/SWI 1gm 1 GM/10 ML SYR IV SCH ×2 (12:02→20:31)
[2018-12-21] MEDS: AZITHROMYCIN IV 250 MG in NA CHLORIDE 0.9% 250 ML IVPB SCH (12:12)
[2018-12-21] MEDS: ALBUTEROL 2.5 MG/3 ML NEB SOL NEB SCH ×2 (13:05→20:05)
[2018-12-21] MEDS: IPRATROPIUM BROM 0.5MG/2.5ML NEB SCH ×2 (13:05→20:05)
[2018-12-21] MEDS: HYDROCODONE/APAP 10/325 TAB PO PRN ×2 (14:10→20:31)
--- NOTE | 2018-12-21 15:01 | ER ---
Nurse's Notes [facility] Name: Pedro Morales Age: 83 yrs Sex: Male : 1935 Arrival Date: 12/21/2018 Time: 05:55 Bed External Waiting [facility] MD: Diagnosis: Influenza due to certain identified influenza viruses;Chronic obstructive pulmonary disease, unspecified;Elevated troponin Presentation: 12/21 05:55 Presenting complaint: EMS states: patient complaints of on and off fever max of 102.5F rr5 chills, fatigue and headache. he came here yesterday with the same symptoms. we checked the temperature its 100.2F. he took tylenol at 0430 and norco at 0530H. 05:55 Transition of care: patient was not received from another setting of care. Onset of rr5 symptoms was December 20, 2018. Risk Assessment: Do you want to hurt yourself or someone else? Patient reports no desire to harm self or others. Initial Sepsis Screen: Does the patient meet any 2 criteria? No. Patient's initial sepsis screen is negative. Does the patient have a suspected source of infection? Yes: Productive cough/pneumonia. Care prior to arrival: Medication(s) given: Tylenol, norco. 05:55 Method Of Arrival: EMS: [facility] rr5 05:55 Acuity: ZACHERY 3 rr5 05:55 Note oxygen dependent at home at 2 liters via nasal cannula. rr5 Historical: - Allergies: 06:05 Levaquin; rr5 06:05 PENICILLINS; rr5 06:05 Sulfa (Sulfonamide Antibiotics); rr5 - Home Meds: 06:05 Breo Ellipta 200-25 mcg/dose inhalation dsdv 1 puff every 4 hours [Active]; Centrum rr5 Silver Oral daily [Active]; cyclobenzaprine 10 mg Oral tab daily [Active]; duloxetine 60 mg Oral cpDR 1 cap once daily [Active]; levothyroxine 100 mcg tab 1 tab once daily [Active]; fluorometholone 0.1 % ophthalmic drps 1 drop 2 times per day [Active]; lorazepam 0.5 mg Oral tab nightly [Active]; metoprolol tartrate 50 mg Oral tab 1 tab 2 times per day [Active]; [place] 10-325 mg Oral tab 1 tab every 4 hours for Pain [Active]; Plavix 75 mg Oral tab 1 tab once daily [Active]; prednisone 10 mg Oral tab once daily [Active]; simvastatin 20 mg Oral tab nightly [Active]; spironolactone 25 mg Oral tab 1 tab once daily [Active]; - PMHx: 06:05 AAA; Back pain; COPD; Degenerative disc disease; Lung Cancer; TIA; rr5 - Immunization history:: Adult Immunizations up to date. - Social history:: Smoking status: Patient/guardian denies using tobacco, Patient/guardian denies using alcohol, street drugs. - Ebola Screening: : Patient negative for fever greater than or equal to 101.5 degrees Fahrenheit, and additional compatible Ebola Virus Disease symptoms Patient denies exposure to infectious person Patient denies travel to an Ebola-affected area in the 21 days before illness onset. Screenin:09 Abuse screen: Denies threats or abuse. Denies injuries from another. Nutritional rr5 screening: No deficits noted. Tuberculosis screening: No symptoms or risk factors identified. Fall Risk IV access (20 points). Gait- Weak (10 pts.). Total Macias Fall Scale indicates Low Risk Score (25-44 pts). Fall prevention measures have been instituted. Side Rails Up X 2 Placed close to Nursing Station Frequent Obs/Assesments occuring As available Patient and Family Educated on Fall Prevention Program and strategies. Assessment: 06:00 General: Appears in no apparent distress. comfortable, Behavior is calm, cooperative, rr5 appropriate for age, Reports chills for 2-3 days, fever for fatigue for. Pain: Complains of pain in head Pain does not radiate. Pain currently is 8 out of 10 on a pain scale. Quality of pain is described as aching, Pain began gradually, Is intermittent. Neuro: Level of Consciousness is awake, alert, obeys commands, Oriented to person, place, time, situation, Appropriate for age. Cardiovascular: Capillary refill < 3 seconds Patient's skin is warm and dry. Edema is 2+ to right and left leg. Respiratory: Reports cough that is productive, Airway is patent Respiratory effort is even, unlabored, Respiratory pattern is regular, symmetrical. GI: No signs and/or symptoms were reported involving the gastrointestinal system. 06:00 : No signs and/or symptoms were reported regarding the genitourinary system. EENT: No rr5 signs and/or symptoms were reported regarding the EENT system. Derm: Skin is fragile, is thin, Skin temperature is warm Bruising that is dark purple, on right arm and left arm. Musculoskeletal: Circulation, motion, and sensation intact. Capillary refill < 3 seconds, Reports chronic back pain. 06:55 Reassessment: Patient appears in no apparent distress at this time. Patient is alert, rr5 oriented x 3, equal unlabored respirations, skin warm/dry/pink. awaiting for result Patient states symptoms have improved. Pain: Pain currently is 4 out of 10 on a pain scale. 07:31 Reassessment: Patient appears in no apparent distress at this time. No changes from la1 previously documented assessment. Patient and/or family updated on plan of care and expected duration. Pain level reassessed. Patient is alert, oriented x 3, equal unlabored respirations, skin warm/dry/pink. 07:40 Reassessment: Order system not working, administered NS 0.9 500cc Bolus at 0735, la1 administered tamiflu 75mg capsule PO x 1 at 0742. 08:49 Reassessment: Patient appears in no apparent distress at this time. Patient and/or tw2 family updated on plan of care and expected duration. Pain level reassessed. Patient is alert, oriented x 3, equal unlabored respirations, skin warm/dry/pink. pt given turkey sandwich at this time, diet ADA tray ordered. 09:26 Reassessment: Patient appears in no apparent distress at this time. No changes from tw2 previously documented assessment. Patient and/or family updated on plan of care and expected duration. Pain level reassessed. Patient is alert, oriented x 3, equal unlabored respirations, skin warm/dry/pink. Vital Signs: 05:55 BP 138 / 54; Pulse 62; Resp 20; Temp 98.6; Pulse Ox 97% on 2 lpm NC; Weight 86.18 kg; rr5 Height 5 ft. 6 in. (167.64 cm); Pain 8/10; 06:50 BP 111 / 57; Pulse 61; Resp 19; Temp 99.8; Pulse Ox 95% 2 lpm ; rr5 06:50 Pain 4/10; rr5 07:31 BP 110 / 54; Pulse 59; Resp 16; Pulse Ox 98% on 2 lpm NC; la1 08:50 BP 130 / 56; Pulse 66; Resp 17; Pulse Ox 100% on 2 lpm NC; tw2 09:26 BP 117 / 44; Pulse 64; Resp 17; Pulse Ox 100% on 3 lpm NC; tw2 05:55 Body Mass Index 30.67 (86.18 kg, 167.64 cm) rr5 ED Course: 05:55 Patient arrived in ED. kb 05:55 [facility]C [facility] kb 05:55 Rory Ramesh MD is Attending Physician. kb 05:55 Arm band placed on. rr5 06:00 Patient has correct armband on for positive identification. Placed in gown. Bed in low rr5 position. Call light in reach. Side rails up X2. groundwater monitoring technician on. Pulse ox on. NIBP on. 06:03 Triage completed. rr5 06:15 EKG done, by ED staff, reviewed by Cristal GAY. rr5 06:17 Anthony Saeed, KAYLYN is Primary Nurse. rr5 06:26 XRAY Chest (1 view) In Process Unspecified. EDMS 06:35 Inserted saline lock: 20 gauge in left antecubital area, using aseptic technique. Blood rr5 collected. 06:35 First set of blood cultures drawn. Flu and/or RSV swab sent to lab. rr5 06:55 Second set of blood cultures drawn by me. rr5 09:03 Francesco Gomez MD is Hospitalizing Provider. kb 09:45 No provider procedures requiring assistance completed. Patient admitted, IV remains in tw2 place. Administered Medications: No medications were administered Outcome: 09:04 Decision to Hospitalize by Provider. kb 09:45 Admitted to Med/surg accompanied by tech, via wheelchair, room 421, with chart, Report tw2 called to KAYLYN Watson 09:45 Condition: stable 09:45 Instructed on the need for admit. 13:43 Patient left the ED. iw Signatures: Dispatcher [employer] EDMS Cristal Aquino FNP-C FNP-Ckb Williams, Irene RN RN iw Sharath Mann RN RN la1 Maria Esther Gibbons RN RN tw2 Anthony Saeed, KAYLYN RN rr5
--- NOTE | 2018-12-21 15:01 | EDPHYS ---
Physician Documentation [facility] Name: Pedro Morales Age: 83 yrs Sex: Male : 1935 Arrival Date: 12/21/2018 Time: 05:55 Bed External Waiting Private MD: ED Physician Rory Ramesh HPI: 12/21 06:07 This 83 yrs old Male presents to ER via EMS with complaints of Fever. kb 06:07 The patient reports fever, that was measured at 102.5 degrees Fahrenheit, with an kb emergency department temperature of 98.6 degrees Fahrenheit. Onset: The symptoms/episode began/occurred 2 day(s) ago. Modifying factors: there are no obvious modifying factors. Associated signs and symptoms: Pertinent positives: cough, brown sputum. Severity of symptoms: At their worst the symptoms were moderate in the emergency department the symptoms are unchanged. The patient has not experienced similar symptoms in the past. The patient has been recently seen at the [facility] Emergency Department, yesterday, for similar complaints labs were performed, X-rays were performed, was given a prescription for antibiotics. Pt reports fever for a couple of days. Came yesterday and was discharged with zithromax. States fever was up to 102.5 this morning, he took tylenol and came in to be reevaluated. Denies chest pain, shortness of breath, abd pain. Reports cough. Pt is on 2L O2 at home "when I lay down.". Historical: - Allergies: 06:05 Levaquin; rr5 06:05 PENICILLINS; rr5 06:05 Sulfa (Sulfonamide Antibiotics); rr5 - Home Meds: 06:05 Breo Ellipta 200-25 mcg/dose inhalation dsdv 1 puff every 4 hours [Active]; Centrum rr5 Silver Oral daily [Active]; cyclobenzaprine 10 mg Oral tab daily [Active]; duloxetine 60 mg Oral cpDR 1 cap once daily [Active]; levothyroxine 100 mcg tab 1 tab once daily [Active]; fluorometholone 0.1 % ophthalmic drps 1 drop 2 times per day [Active]; lorazepam 0.5 mg Oral tab nightly [Active]; metoprolol tartrate 50 mg Oral tab 1 tab 2 times per day [Active]; [place] 10-325 mg Oral tab 1 tab every 4 hours for Pain [Active]; Plavix 75 mg Oral tab 1 tab once daily [Active]; prednisone 10 mg Oral tab once daily [Active]; simvastatin 20 mg Oral tab nightly [Active]; spironolactone 25 mg Oral tab 1 tab once daily [Active]; - PMHx: 06:05 AAA; Back pain; COPD; Degenerative disc disease; Lung Cancer; TIA; rr5 - Immunization history:: Adult Immunizations up to date. - Social history:: Smoking status: Patient/guardian denies using tobacco, Patient/guardian denies using alcohol, street drugs. - Ebola Screening: : Patient negative for fever greater than or equal to 101.5 degrees Fahrenheit, and additional compatible Ebola Virus Disease symptoms Patient denies exposure to infectious person Patient denies travel to an Ebola-affected area in the 21 days before illness onset. ROS: 06:07 ENT: Negative for injury, pain, and discharge, Neck: Negative for injury, pain, and kb swelling, Cardiovascular: Negative for chest pain, palpitations, and edema, Abdomen/GI: Negative for abdominal pain, nausea, vomiting, diarrhea, and constipation, Back: Negative for injury and pain, MS/Extremity: Negative for injury and deformity, Skin: Negative for injury, rash, and discoloration, Neuro: Negative for headache, weakness, numbness, tingling, and seizure. 06:07 Constitutional: Positive for fever, malaise, Negative for body aches, chills, fatigue, poor PO intake, weight loss. 06:07 Respiratory: Positive for cough, with rust-colored sputum, Negative for dyspnea on exertion, hemoptysis, orthopnea, pleurisy, shortness of breath, wheezing. Exam: 06:07 Constitutional: This is a well developed, well nourished patient who is awake, alert, kb and in no acute distress. Head/Face: Normocephalic, atraumatic. ENT: Nares patent. No nasal discharge, no septal abnormalities noted. Tympanic membranes are normal and external auditory canals are clear. Oropharynx with no redness, swelling, or masses, exudates, or evidence of obstruction, uvula midline. Mucous membranes moist. Neck: Trachea midline, no thyromegaly or masses palpated, and no cervical lymphadenopathy. Supple, full range of motion without nuchal rigidity, or vertebral point tenderness. No Meningismus. Chest/axilla: Normal chest wall appearance and motion. Nontender with no deformity. No lesions are appreciated. Cardiovascular: Regular rate and rhythm with a normal S1 and S2. No gallops, murmurs, or rubs. Normal PMI, no JVD. No pulse deficits. mild lower extremity edema. (Pt reports this happens for an unknown reason, but he takes Lasix for it as needed, has not had any lasix recently) Respiratory: Lungs have equal breath sounds bilaterally, clear to auscultation and percussion. No rales, rhonchi or wheezes noted. No increased work of breathing, no retractions or nasal flaring. Abdomen/GI: Soft, non-tender, with normal bowel sounds. No distension or tympany. No guarding or rebound. No evidence of tenderness throughout. Skin: Warm, dry with normal turgor. Normal color with no rashes, no lesions, and no evidence of cellulitis. MS/ Extremity: Pulses equal, no cyanosis. Neurovascular intact. Full, normal range of motion. Neuro: Awake and alert, GCS 15, oriented to person, place, time, and situation. Cranial nerves II-XII grossly intact. Motor strength 5/5 in all extremities. Sensory grossly intact. Cerebellar exam normal. Normal gait. Vital Signs: 05:55 BP 138 / 54; Pulse 62; Resp 20; Temp 98.6; Pulse Ox 97% on 2 lpm NC; Weight 86.18 kg; rr5 Height 5 ft. 6 in. (167.64 cm); Pain 8/10; 06:50 BP 111 / 57; Pulse 61; Resp 19; Temp 99.8; Pulse Ox 95% 2 lpm ; rr5 06:50 Pain 4/10; rr5 07:31 BP 110 / 54; Pulse 59; Resp 16; Pulse Ox 98% on 2 lpm NC; la1 08:50 BP 130 / 56; Pulse 66; Resp 17; Pulse Ox 100% on 2 lpm NC; tw2 09:26 BP 117 / 44; Pulse 64; Resp 17; Pulse Ox 100% on 3 lpm NC; tw2 05:55 Body Mass Index 30.67 (86.18 kg, 167.64 cm) rr5 MDM: 05:55 Patient medically screened. kb 06:11 Data reviewed: vital signs, nurses notes. Data interpreted: Pulse oximetry: on room air kb is 97 %. Interpretation: normal. 09:01 Counseling: I had a detailed discussion with the patient and/or guardian regarding: the kb historical points, exam findings, and any diagnostic results supporting the discharge/admit diagnosis, lab results, radiology results, the need for further work-up and treatment in the hospital. Physician consultation: Francesco Gomez MD was contacted at 09:02, regarding admission, to the telemetry unit. patient's condition, and will see patient in inpatient room, shortly. Admission orders: after a detailed discussion of the patient's condition and case, the admit orders are written by me. 12/21 06:05 Order name: PT-INR; Complete Time: 07:15 kb 12/21 06:05 Order name: Basic Metabolic Panel; Complete Time: 07:14 kb 12/21 06:05 Order name: CBC with Diff kb 12/21 06:05 Order name: LFT's; Complete Time: 07:14 kb 12/21 06:05 Order name: Magnesium; Complete Time: 07:14 kb 12/21 06:05 Order name: NT PRO-BNP; Complete Time: 07:14 kb 12/21 06:05 Order name: Troponin (emerg Dept Use Only); Complete Time: 07:14 kb 12/21 06:05 Order name: XRAY Chest (1 view) kb 12/21 06:05 Order name: EKG; Complete Time: 06:07 kb 12/21 06:05 Order name: Lactate; Complete Time: 07:14 kb 12/21 06:05 Order name: Blood Culture Adult (2) kb 12/21 06:05 Order name: Procalcitonin kb 12/21 06:05 Order name: Flu; Complete Time: 07:02 kb 12/21 06:05 Order name: Cardiac monitoring; Complete Time: 06:18 kb 12/21 06:05 Order name: EKG - Nurse/Tech; Complete Time: 06:18 kb 12/21 06:05 Order name: IV Saline Lock; Complete Time: 06:49 kb 12/21 06:05 Order name: Labs collected and sent; Complete Time: 06:49 kb 12/21 06:05 Order name: O2 Per Protocol; Complete Time: 06:06 kb 12/21 06:05 Order name: O2 Sat Monitoring; Complete Time: 06:06 kb 12/21 06:39 Order name: Urine Dipstick-Ancillary (obtain specimen); Complete Time: 07:26 kb Administered Medications: No medications were administered Disposition: 12/21/18 09:04 Hospitalization ordered by Francesco Gomez for Inpatient Admission. Preliminary diagnosis are Influenza due to certain identified influenza viruses, Chronic obstructive pulmonary disease, unspecified, Elevated troponin. - Bed requested for Telemetry/MedSurg (Inpatient). - Status is Inpatient Admission. iw - Condition is Stable. - Problem is new. - Symptoms are unchanged. UTI on Admission? No Addendum: 12/24/2018 05:09 Co-signature as Attending Physician, Rory Ramesh MD Available for consultation at p s1 all times. Signatures: Dispatcher [employer] EDMS Cristal Aquino, DEIDRA NUNO-Trisha Aguilar RN RN dw Williams, Irene, RN RN iw Robbie Rae MD MD rn Singer, Phillip, MD MD ps1 Roque, Raymond, RN RN rr5 Corrections: (The following items were deleted from the chart) 12/21 07:45 06:07 Associated signs and symptoms: Pertinent positives: cough, kb kb 07:45 06:07 Respiratory: Positive for cough, Negative for dyspnea on exertion, hemoptysis, kb orthopnea, pleurisy, shortness of breath, sputum production, wheezing, kb 09:25 09:04 Hospitalization Ordered by Francesco Gomez MD for Inpatient Admission. Preliminary dw diagnosis is Influenza due to certain identified influenza viruses; Chronic obstructive pulmonary disease, unspecified; Elevated troponin. Bed requested for Telemetry/MedSurg (Inpatient). Status is Inpatient Admission. Condition is Stable. Problem is new. Symptoms are unchanged. UTI on Admission? No. kb 13:43 09:25 12/21/2018 09:04 Hospitalization Ordered by Francesco Gomez MD for Inpatient iw Admission. Preliminary diagnosis is Influenza due to certain identified influenza viruses; Chronic obstructive pulmonary disease, unspecified; Elevated troponin. Bed requested for Telemetry/MedSurg (Inpatient). Status is Inpatient Admission. Condition is Stable. Problem is new. Symptoms are unchanged. UTI on Admission? No. dw
[2018-12-21] MEDS: OSELTAMIVIR 75 MG CAP PO SCH (20:31)
[2018-12-21] MEDS ORDERED: LORAZEPAM 0.5 MG PO PRN (21:45)
[2018-12-21] MEDS ORDERED: ACETAMINOPHEN PO PRN (21:45)
[2018-12-21] MEDS ORDERED: CYCLOBENZAPRINE 10 MG PO PRN (21:45)
[2018-12-21] MEDS ORDERED: HYDROCORTISONE TOP SCH (21:45)
[2018-12-21] MEDS ORDERED: LIDOCAINE 2% TOP SCH (21:45)
[2018-12-21] MEDS ORDERED: HYDROCODONE PO PRN (21:45)
[2018-12-21] MEDS ORDERED: TRIAMCINOLONE ACETONIDE IH SCH (21:45)
[2018-12-21] MEDS ORDERED: CETIRIZINE HCL 10 MG PO PRN (21:45)
[2018-12-22] MEDS: IPRATROPIUM BROM 0.5MG/2.5ML NEB SCH ×4 (02:00→20:00)
[2018-12-22] MEDS: ALBUTEROL 2.5 MG/3 ML NEB SOL NEB SCH ×4 (02:00→20:00)
[2018-12-22] MEDS: HYDROCODONE/APAP 10/325 TAB PO PRN ×4 (03:54→18:00)
[2018-12-22 04:19] LABS: Basophils % 1.7 % (0-1.3); Hematocrit 35.9 % (39.6-49.0); Lymphocytes % 10.9 % (15.3-44.8); MPV 8.9 fL (7.6-11.3); RBC Red Blood Cell Count 3.82 M/uL (4.33-5.43)
[2018-12-22 04:31] LABS: Potassium 4.2 mmol/L (3.5-5.1)
--- NOTE | 2018-12-22 04:38 | HP ---
Date of Admission: 12/21/2018 Chief Complaint: Fever, chills, body ache, cough, congestion. History Of Present Illness: This is an 83-year-old male patient, who was in his normal usual state o f health until yesterday started to have fever, chills, generalized body ache, feeling very weak, and he came into emergency room. After he was evaluated, he was discharged to go home. Patient's condi tion did not improve, so he came back to emergency room today, and after he was evaluated, he was adm itted to hospital. He is coughing up thick brownish-colored mucus. His influenza B test is positive . I saw him this evening. His was with him at bedside. Review of Systems: Respiratory: As mentioned above. Constitutional: As mentioned above. All other systems reviewed and negative. Advanced Directives: Do not resuscitate as per my discussion with patient this evening. He does not want any heroic measures like CPR, defibrillation, or ventilator support in the event of cardiopulmo nary arrest. Medications: List reviewed. Allergies: PENICILLIN, SULFA, AND LEVAQUIN. Family History: Significant for coronary artery disease, Alzheimer disease. Social History: Negative for smoking or alcohol use. Past Surgical History: Significant for surgery for lung cancer in 2015, arthroscopic knee surgery, b ack surgery, cataract surgery, TURP. Past Medical History: Significant for hypertension, hyperlipidemia, lung cancer, anemia, COPD, impai red fasting glucose, osteoarthritis at multiple sites, coronary artery disease, hypothyroidism, hyper kalemia, osteoporosis, abdominal aortic aneurysm, gastroesophageal reflux disease, depression. Physical Examination: Vital Signs: Height 5 feet 6 inches, weight 192 pounds, temperature 98, pulse 62, respiratory rate 2 0, blood pressure 120/55, oxygen saturation 96%. General: Awake, alert, oriented, not in distress. HEENT: Head atraumatic, normocephalic. Conjunctivae nonerythematous. Sclerae white. Mouth, no thr ush or edema noted. Ears/Nose, no mass, lesion, discharge noted. Neck: Supple. No JVD, lymph nodes, bruit, thyromegaly noted. Lungs: Bilateral basal rales, not in any respiratory distress. Heart: Normal heart sounds, no murmur or gallop. Abdomen: Soft, bowel sounds normal. No guarding, rigidity, tenderness, mass, hepatosplenomegaly, di stention, or bruit noted. Extremities: Trace leg edema. Skin: No rash, ulcer, cellulitis. Lymphatics: No lymph node enlargement in neck, supraclavicular, infraclavicular region. Neuro: No focal neurological deficit. Chest: Unremarkable. External Genitalia: Deferred. Rectal: Deferred. Laboratory Data: Chest x-ray shows changes of congestive heart failure. White count 12.9, hemoglobi n 11.4, platelets 151. Sodium 129, potassium 3.9, chloride 94, bicarb 27, BUN 17, creatinine 1.03, g lucose 102. Liver function tests unremarkable except SGOT 41. Troponin 0.05 on the first set, secon d set 0.04, third set 0.03. ProBNP 1791. Procalcitonin 3.33. Urinalysis negative. Influenza B jaswinder t came back positive. Impression: 1.Congestive heart failure, diastolic, acute. 2.Influenza B with respiratory manifestation. 3.Anemia, unspecified. 4.Hypertension. 5.Chronic obstructive pulmonary disease. 6.Hyperlipidemia. 7.Lung cancer. 8.Impaired fasting glucose. 9.Osteoarthritis, multiple sites. 10.Abdominal aortic aneurysm. 11.Coronary artery disease. 12.Hypothyroidism. 13.Osteoporosis. 14.Gastroesophageal reflux disease. 15.Depression. Plan: Admit patient to hospital for further evaluation and management of this problem. Patient is a ppropriate for inpatient and is expected to spend 2 midnights in hospital. Home medications will be continued per order. We will give IV Lasix, get echo with Doppler tomorrow. We will continue Tamifl u, which was started in the emergency room and also empiric antibiotic as I suspect patient has some underlying acute bacterial bronchitis. Details and plan of treatment discussed with patient. I will see him tomorrow for followup. We will write DNR order in the chart per my discussion with patient as per his decision. WAGNER/MODL Voice ID: [id number]
[2018-12-22] MEDS: LEVOTHYROXINE 0.1 MG PO SCH (06:00)
--- NOTE | 2018-12-22 07:29 | EKG ---
Test Date: 2018-12-21 Test Time: 06:10:42 Manager Student Services: ROEL MEASUREMENT RESULTS: Intervals: Rate: 64 WI: 174 QRSD: 90 QT: 396 QTc: 408 [place]: P: 24 WI: 174 QRS: -52 T: 61 INTERPRETIVE STATEMENTS: Sinus rhythm with premature atrial complexes in a pattern of bigeminy Left axis deviation Abnormal ECG Compared to ECG 11/28/2018 13:33:03 Sinus tachycardia no longer present Myocardial infarct finding no longer present Electronically Signed On 12-22-18 07:28:35 CDT by Reymundo Higuera
[2018-12-22] MEDS: ENOXAPARIN 40 MG/0.4 ML SQ SCH (08:07)
[2018-12-22] MEDS: CEFTRIAXONE/SWI 1gm 1 GM/10 ML SYR IV SCH ×2 (08:07→21:13)
[2018-12-22] MEDS: PSYLLIUM HUSK PO SCH ×2 (09:00→11:20)
[2018-12-22] MEDS ORDERED: FLUOROMETHOLONE 0.1% EACH EYE SCH (09:00)
[2018-12-22] MEDS: OSELTAMIVIR 75 MG CAP PO SCH ×2 (09:50→21:14)
[2018-12-22] MEDS: AZITHROMYCIN IV 250 MG in NA CHLORIDE 0.9% 250 ML IVPB SCH (09:51)
[2018-12-22] MEDS: Clopidogrel Bisulfate (Plavix) 75 MG TABLETS PO SCH ×2 (11:21→21:13)
[2018-12-22] MEDS: DULOXETINE HCL 60 MG PO SCH (11:21)
[2018-12-22] MEDS: POTASSIUM 99 MG PO SCH (11:21)
--- NOTE | 2018-12-22 12:13 | ECHO ---
HEIGHT: 5 ft 6 in WEIGHT: 192 lb 2 oz DATE OF STUDY: 12/22/[address]: Francesco Gomez MD 2-DIMENSIONAL: YES M.MODE: YES DOPPLER: YES COLOR FLOW: YES TDS: NO PORTABLE: NO DEFINITY: NO BUBBLE STUDY: NO DIAGNOSIS: CONGESTIVE HEART FAILURE CARDIAC HISTORY: CATHERIZATION: YES SURGERY: CORONARY ARTERY BYPASS GRAFT PROSTHETIC VALVE: NO PACEMAKER: NO MEASUREMENTS (cm) DIASTOLIC (NORMALS) SYSTOLIC (NORMALS) IVSd 1.2 (0.6-1.2) LA Diam 3.2 (1.9-4.0) LVEF 77% LVIDd 4.5 (3.5-5.7) LVIDs 2.4 (2.0-3.5) %FS 46% LVPWd 1.4 (0.6-1.2) Ao Diam 2.5 (2.0-3.7) 2 DIMENSIONAL ASSESSMENT: RIGHT ATRIUM: NORMAL LEFT ATRIUM: NORMAL RIGHT VENTRICLE: NORMAL LEFT VENTRICLE: NORMAL TRICUSPID VALVE: NORMAL MITRAL VALVE: NORMAL PULMONIC VALVE: NORMAL AORTIC VALVE: MILD SCLEROSIS PERICARDIAL EFFUSION: NONE AORTIC ROOT: NORMAL LEFT VENTRICULAR WALL MOTION: DOPPLER/COLOR FLOW: MILD AORTIC REGURGITATION. NO AORTIC STENOSIS. COMMENTS: NORMAL LEFT VENTRICULAR EJECTION FRACTION. AORTIC SCLEROSIS WITH NO AORTIC STENOSIS. MILD AORTIC REGURGITATION. TECHNOLOGIST: SULEMAN YU
[2018-12-22] MEDS ORDERED: LOSARTAN POTASSIUM 50 MG PO SCH (21:00)
[2018-12-22] MEDS: METOPROLOL TARTRATE 50 MG PO SCH (21:12)
--- NOTE | 2018-12-23 00:10 | PN ---
Date of Progress Note: 12/22/2018 Subjective: Patient was seen this morning for followup. No new complaints or problems reported by patient. Objective: Vital Signs: Reviewed. HEENT: Unremarkable. Lungs: Bilateral good equal air entry. Presence of basal rales. Not using any accessory muscles of respiration. Heart: Sounds normal. Abdomen: Soft. Bowel sounds normal. No guarding, rigidity, tenderness, or distention. Extremities: Trace leg edema. Laboratory Data: White count 8.7, hemoglobin 12.3. Sodium 132, potassium 4.2, chloride 93, bicarb 33, BUN 13, creatinine 1.04, glucose 103, proBNP 714. Impression: 1. Congestive heart failure. 2. Hypertension. 3. Chronic obstructive pulmonary disease. Plan: We will continue current medication, Lasix, antibiotic, oxygen nebulizer treatment, and steroids. I will see him tomorrow for followup. We will get an echo with Doppler today, possible discharge to go home tomorrow. WAGNER/MODL Voice ID: [id number] Report ID: [id number] MTDD
[2018-12-23] MEDS: ALBUTEROL 2.5 MG/3 ML NEB SOL NEB SCH ×2 (02:00→08:00)
[2018-12-23] MEDS: IPRATROPIUM BROM 0.5MG/2.5ML NEB SCH ×2 (02:00→08:00)
[2018-12-23] MEDS: HYDROCODONE/APAP 10/325 TAB PO PRN ×2 (04:01→08:19)
[2018-12-23 04:17] LABS: MPV 8.8 fL (7.6-11.3)
[2018-12-23 04:30] LABS: Absolute Lymphocytes (CBC) 1.5 K/uL (0.7-4.9); Basophils % 0.3 % (0-1.3); Hematocrit 34.7 % (39.6-49.0); Lymphocytes % 22.9 % (15.3-44.8); RBC Red Blood Cell Count 3.69 M/uL (4.33-5.43)
[2018-12-23 04:38] LABS: Potassium 4.4 mmol/L (3.5-5.1)
[2018-12-23] MEDS: LEVOTHYROXINE 0.1 MG PO SCH (05:35)
[2018-12-23] MEDS: AZITHROMYCIN IV 250 MG in NA CHLORIDE 0.9% 250 ML IVPB SCH (08:19)
[2018-12-23] MEDS: CEFTRIAXONE/SWI 1gm 1 GM/10 ML SYR IV SCH (08:19)
[2018-12-23] MEDS: ENOXAPARIN 40 MG/0.4 ML SQ SCH (08:23)
[2018-12-23] MEDS: POTASSIUM 99 MG PO SCH (08:24)
[2018-12-23] MEDS: METOPROLOL TARTRATE 50 MG PO SCH (08:25)
[2018-12-23] MEDS: DULOXETINE HCL 60 MG PO SCH (08:26)
[2018-12-23] MEDS: PSYLLIUM HUSK PO SCH (08:26)
[2018-12-23] MEDS: OSELTAMIVIR 75 MG CAP PO SCH (08:28)
[2018-12-23 09:12] VITALS: BP 123/69; TEMP 97.2
[2018-12-23 10:22] VITALS: O2SAT 98
--- NOTE | 2018-12-25 18:59 | DS ---
Date of Discharge: 12/23/2018 History: Patient was seen this morning for followup. No new complaints or problems reported by him. Overall, feels better than before. Physical Examination: Vital Signs: Reviewed. HEENT: Unremarkable. Lungs: Clear to auscultation. Heart: Sounds normal. Abdomen: Soft. Bowel sounds normal. No guarding, rigidity, tenderness, or distention. Extremities: No leg edema. Hospital Course: This is an 83-year-old male patient admitted to the hospital with complaints of fev er, chills, body ache, cough, congestion. Please see dictated H and P for more information. The pat ient was also coughing up some thick brown-colored mucus. After he came into emergency room, workup done in the ER revealed chest x-ray showing changes of congestive heart failure. White count was 12. 9, hemoglobin 11.4, and a platelet count of 151. Sodium level was low at 129. Procalcitonin 3.33. Patient was admitted to the hospital with influenza B, congestive heart failure problem with multiple other comorbidities. After he was admitted to the hospital, he was started on IV diuretic therapy. He was also started on IV antibiotics. Home medications were continued. He was started on Tamiflu for his influenza B infection with respiratory manifestation. Overall, his condition has improved ve ry well. He is afebrile. Medically stable for discharge today. He has received 4 doses of Tamiflu in the hospital and he will need 6 more doses to go home, so we will call that prescription to [facility]. His advanced directives do not resuscitate per my discussion with him. Laboratory Data: Labs done during this hospitalization. Initial white count 12.9, hemoglobin 11.4, platelets 151. Last white count today 6.3, hemoglobin 11.7, platelets 170. Last chemistry today; so dium 131, potassium 4.4, chloride 94, bicarb 31, BUN 14, creatinine 0.97, and glucose 126. Procalcit onin today 0.32. Upon admission, procalcitonin 3.33. Echocardiogram showed normal ejection fraction . Final Diagnosis: 1.Congestive heart failure, chronic, diastolic, with acute exacerbation. 2.Influenza type B with respiratory manifestation. 3.Anemia, unspecified. 4.Hypertension. 5.Chronic obstructive pulmonary disease. 6.Hyperlipidemia. 7.Lung cancer. 8.Impaired fasting glucose. 9.Abdominal aortic aneurysm. 10.Osteoarthritis, multiple sites. 11.Coronary artery disease. 12.Hypothyroidism. 13.Osteoporosis. 14.Gastroesophageal reflux disease. 15.Depression. Discharge Medications And Instructions: 1.Continue prior home medication except stop hydrochlorothiazide. 2.Start furosemide 40 mg 1 tab p.o. daily. 3.Cefuroxime 250 mg twice a day for 5 days and Tamiflu 75 mg twice a day for 3 days. 4.Follow up at my office in another week after. WAGNER/PARKER Voice ID: [id number] Report ID: [id number]
== END 2018-12-23 10:31 | disposition home or self-care (01) | DRG 293 ==
LOC: ER 05:53 → ERHOLD 08:56 → 4TH 10:02
PROVIDERS: ADMIT Internal Medicine; ATTEND Internal Medicine
DX: I11.0 Hypertensive heart disease with heart failure (principal); I50.33 Acute on chronic diastolic (congestive) heart failure; J11.89 Influenza due to unidentified influenza virus with other manifestations; E03.9 Hypothyroidism, unspecified; J44.9 Chronic obstructive pulmonary disease, unspecified; E78.5 Hyperlipidemia, unspecified; I25.10 Atherosclerotic heart disease of native coronary artery without angina pectoris; M81.0 Age-related osteoporosis without current pathological fracture; K21.9 Gastro-esophageal reflux disease without esophagitis; F32.9 Major depressive disorder, single episode, unspecified; Z66 Do not resuscitate; Z88.0 Allergy status to penicillin; Z88.2 Allergy status to sulfonamides; Z85.118 Personal history of other malignant neoplasm of bronchus and lung; D64.9 Anemia, unspecified; M19.90 Unspecified osteoarthritis, unspecified site
CPT/HCPCS: 36415; 71045; 80048; 80076; 81003; 82962; 83605; 83735; 83880; 84145; 84484; 85025; 85610; 87040; 87804; 93005; 93306; 94640; 94760; 96361; 96374; 96375; 99285; J0456; J0696; J1650; J2405; J7030

== ENCOUNTER 2019-01-28 01:31 | Emergency (ER) | payer OTHER ==
[2019-01-28] MEDS ORDERED: MEPERIDINE HCL 25 MG/0.5 ML ONE ×3 (01:44→05:02)
[2019-01-28] MEDS ORDERED: NA CHLORIDE 0.9% 500 ML ONE (01:44)
[2019-01-28 02:33] LABS: Absolute Lymphocytes (CBC) 2.8 K/uL (0.7-4.9); Basophils % 0.4 % (0-1.3); MPV 9.2 fL (7.6-11.3); RBC Red Blood Cell Count 4.14 M/uL (4.33-5.43)
[2019-01-28 02:44] LABS: Potassium 4.2 mmol/L (3.5-5.1)
--- NOTE | 2019-01-28 05:06 | ER ---
Nurse's Notes [facility] Name: Pedro Morales Age: 83 yrs Sex: Male : 1935 Arrival Date: 01/28/2019 Time: 01:32 Bed 5 Private MD: Diagnosis: Headache;Hypertension Presentation: 01/28 01:26 Presenting complaint: Patient states: that he is having the worst headache of his life fc that is radiating to his right neck. Positive nausea. Had flu in Nov. Transition of care: patient was not received from another setting of care. Onset of symptoms was January 27, 2019 at 17:00. Risk Assessment: Do you want to hurt yourself or someone else? Patient reports no desire to harm self or others. Initial Sepsis Screen: Does the patient meet any 2 criteria? No. Patient's initial sepsis screen is negative. Does the patient have a suspected source of infection? No. Patient's initial sepsis screen is negative. Care prior to arrival: Medication(s) given: zofran 4 mg, IV initiated. 20 GA, in the right antecubital area, Glucose check: 121. 01:26 Method Of Arrival: EMS: [facility] 01:26 Acuity: ZACHERY 3 Triage Assessment: 01:53 Headache History: The patient has had previous headaches and this one is different than ak1 previous episodes, and this one is more severe than previous episodes. General: Appears in no apparent distress. Pain: Pain began 1700 yesterday Also complains of nausea. 05:10 Pain: Pain at worst was 10 out of 10 on a pain scale. ak1 Historical: - Allergies: 01:44 Levaquin; fc 01:44 Sulfa (Sulfonamide Antibiotics); fc 01:44 PENICILLINS; fc - Home Meds: 01:44 Breo Ellipta 200-25 mcg/dose inhalation dsdv 1 puff every 4 hours [Active]; Centrum fc Silver Oral daily [Active]; duloxetine 60 mg Oral cpDR 1 cap once daily [Active]; fluorometholone 0.1 % ophthalmic drps 1 drop 2 times per day [Active]; levothyroxine 100 mcg tab 1 tab once daily [Active]; metoprolol tartrate 50 mg Oral tab 1 tab 2 times per day [Active]; [place] 10-325 mg Oral tab 1 tab every 4 hours for Pain [Active]; Plavix 75 mg Oral tab 1 tab once daily [Active]; prednisone 10 mg Oral tab once daily [Active]; simvastatin 20 mg Oral tab nightly [Active]; 02:25 Metamucil Smooth Texture Oral daily [Active]; Miralax 17 gram Oral pwpk 1 packet once fc daily [Active]; losartan 50 mg oral tab 1 tab once daily [Active]; magnesium 125 mg daily [Active]; hydrochlorothiazide 12.5 mg Oral tab 1 tab once daily [Active]; potassium chloride 8 mEq Oral cpER 1 cap once daily [Active]; Super B-50 Complex oral cap daily [Active]; Vitamin D Oral daily [Active]; oxycodone 15 mg Oral tab 1 tab qhs prn [Active]; aspirin 325 mg Oral tab 1 tab as needed [Active]; Lasix 40 mg Oral tab 1 tab 3-4 times a week prn [Active]; - PMHx: 01:44 AAA; Back pain; COPD; Degenerative disc disease; Lung Cancer; TIA; fc - PSHx: 01:44 CABG; Cholecystectomy; lung resection; fc - Immunization history:: Last tetanus immunization: unknown, Flu vaccine is not up to date. - Social history:: Smoking status: Patient/guardian denies using tobacco, the patient reports quitting approximately 12 years ago, Patient/guardian denies using alcohol, street drugs. - Ebola Screening: : Patient negative for fever greater than or equal to 101.5 degrees Fahrenheit, and additional compatible Ebola Virus Disease symptoms Patient denies exposure to infectious person Patient denies travel to an Ebola-affected area in the 21 days before illness onset. - Family history:: not pertinent. - Hospitalizations: : No recent hospitalization is reported. Screenin:49 Abuse screen: Denies threats or abuse. Denies injuries from another. Nutritional ak1 screening: No deficits noted. Tuberculosis screening: No symptoms or risk factors identified. Fall Risk IV access (20 points). Gait- Impaired (20 pts.). Assessment: 01:51 General: Appears in no apparent distress. Behavior is calm, cooperative. Pain: ak1 Complains of pain in headache, chronic back pain. Neuro: Level of Consciousness is awake, alert, obeys commands, Oriented to person, place, time, situation, Home Health Care Physician are equal bilaterally Moves all extremities. pt stated "my right foot is shot" pt c/o chronic back pain. . Neuro: Speech is normal, Facial symmetry appears normal. Neuro: Reports headache since 1700 yesterday. Cardiovascular: No deficits noted. Respiratory: Airway is patent pt stated he uses 2L O2 via NC at home due to his COPD. GI: No signs and/or symptoms were reported involving the gastrointestinal system. : No signs and/or symptoms were reported regarding the genitourinary system. EENT: No signs and/or symptoms were reported regarding the EENT system. Derm: No signs and/or symptoms reported regarding the dermatologic system. Musculoskeletal: Reports pain in back, chronic back pain. 03:00 Reassessment: Patient appears in no apparent distress at this time. pt returned from az1 CT, complains of pain, Dr. Rae notified with new verbal orders given. 04:30 Reassessment: Patient appears in no apparent distress at this time. No changes from [facility] previously documented assessment. Patient and/or family updated on plan of care and expected duration. Pain level reassessed. Patient is alert, oriented x 3, equal unlabored respirations, skin warm/dry/pink. pt requested to sit in a chair. pt remains connected to vitals and oxygen. pt in chair next to the stretcher. Patient states feeling better. 05:06 Reassessment: Patient appears in no apparent distress at this time. Patient and/or ak1 family updated on plan of care and expected duration. Pain level reassessed. Patient is alert, oriented x 3, equal unlabored respirations, skin warm/dry/pink. pt requested to be back in the bed to receive pain medication. Dr. Rae informed with new verbal order for medication. 05:42 Reassessment: Patient appears in no apparent distress at this time. Patient and/or ak1 family updated on plan of care and expected duration. Pain level reassessed. Patient is alert, oriented x 3, equal unlabored respirations, skin warm/dry/pink. Patient states feeling better. Patient states symptoms have improved. Vital Signs: 01:26 BP 182 / 82; Pulse 80; Resp 18; Temp 99.7(O); Pulse Ox 97% on R/A; Weight 86.18 kg (R); fc Height 5 ft. 6 in. (167.64 cm) (R); Pain 7/10; 01:49 BP 179 / 86; Pulse 74; Resp 20; Pulse Ox 100% on 2 lpm NC; ak1 02:24 BP 155 / 55; Pulse 70; Resp 16; Pulse Ox 93% on 2 lpm NC; ak1 02:40 BP 175 / 66; Pulse 77; Resp 18; Pulse Ox 98% on 2 lpm NC; ak1 03:02 BP 158 / 71; Pulse 74; Resp 18; Pulse Ox 96% on R/A; ea 03:52 BP 151 / 65; Pulse 82; Resp 18; Pulse Ox 97% on 2 lpm NC; ak1 04:08 BP 145 / 56; Pulse 63; Resp 18; Temp 98.3(TE); Pulse Ox 97% on 2 lpm NC; ak1 05:09 BP 152 / 72; Pulse 71; Resp 18; Temp 98.2(TE); Pulse Ox 100% on 2 lpm NC; ak1 01:26 Body Mass Index 30.67 (86.18 kg, 167.64 cm) fc 01:49 pt states he uses 2L O2 at home for COPD. ak1 Deonte Coma Score: 05:02 Eye Response: spontaneous(4). Verbal Response: oriented(5). Motor Response: obeys rn commands(6). Total: 15. ED Course: 01:26 Arm band placed on Patient placed in an exam room, on a stretcher. fc 01:32 Patient arrived in ED. ds1 01:32 Robbie Rae MD is Attending Physician. rn 01:40 Triage completed. fc 01:48 Maureen Olmos, RN is Primary Nurse. ak1 01:49 Patient has correct armband on for positive identification. Placed in gown. Bed in low ak1 position. Call light in reach. Side rails up X2. Adult w/ patient. school lunch monitor on. Pulse ox on. NIBP on. Door closed. Lights dimmed. 01:49 Maintain EMS IV. Dressing intact. Good blood return noted. Site clean \\T\\ dry. Gauge \\T\\ ak 1 site: 18g right AC. 02:24 CT completed. Patient tolerated procedure well. Patient moved to CT via stretcher. Patient moved back from CT. 02:26 CT Head Brain wo Cont In Process Unspecified. EDMS 04:11 CT Head Angio In Process Unspecified. EDMS 04:11 CT Neck Angio In Process Unspecified. EDMS 05:42 No provider procedures requiring assistance completed. IV discontinued, intact, ak1 bleeding controlled, No redness/swelling at site. Pressure dressing applied. Administered Medications: 01:49 Drug: NS 0.9% 500 ml Route: IV; Rate: bolus; Site: right antecubital; ak1 02:53 Follow up: IV Status: Completed infusion; IV Intake: 500ml ak1 01:49 Not Given (Physician Discretion): Reglan 10 mg IVP once; over 1 to 2 minutes ak1 01:49 Drug: Demerol 25 mg Route: IVP; Site: right antecubital; ak1 02:53 Follow up: Response: No adverse reaction; Pain is decreased ak1 03:20 Follow up: Response: No adverse reaction; Pain is decreased ak1 03:00 Drug: Demerol 25 mg Route: IVP; Site: right antecubital; ak1 03:53 Follow up: Response: Pain is decreased ak1 05:06 Drug: Demerol 25 mg Route: IVP; Site: right antecubital; ak1 05:43 Follow up: Response: No adverse reaction; Pain is decreased ak1 Intake: 02:53 IV: 500ml; Total: 500ml. ak1 Outcome: 05:05 Discharge ordered by . rn 05:42 Discharged to home via wheelchair, with family. ak1 05:42 Condition: improved 05:42 Discharge instructions given to patient, family, Instructed on discharge instructions, follow up and referral plans. Demonstrated understanding of instructions, follow-up care. 05:42 Patient left the ED. ak1 Signatures: Dispatcher [employer] EDMD Antony Mehta Ines Fierro RN RN Shanna Singer [facility] Robbie Rae MD MD rn Krenek, Amber, RN RN ak1 Grace Goldberg RN RN ea Corrections: (The following items were deleted from the chart) 01:42 01:26 Care prior to arrival: None. [facility] 02 01:44 Home Meds: cyclobenzaprine 10 mg Oral tab daily; PRN; [facility] 01:44 Home Meds: lorazepam 0.5 mg Oral tab nightly; PRN; [facility] 01:44 Home Meds: spironolactone 25 mg Oral tab 1 tab once daily; [facility] 02:25 02:24 BP 155 / 55; Pulse 128bpm; Resp 19bpm; Pulse Ox 96% RA; ak1 ak1
--- NOTE | 2019-01-28 05:06 | EDPHYS ---
Physician Documentation [facility] Name: Pedro Morales Age: 83 yrs Sex: Male : 1935 Arrival Date: 01/28/2019 Time: 01:32 Bed 5 Private MD: ED Physician Robbie Rae HPI: 01/28 02:49 This 83 yrs old Male presents to ER via EMS with complaints of Headache. rn 02:49 The patient complains of pain to the top of head, forehead, right side of the back of rn head and right occipital area. The patient describes the headache as aching. 02:50 Onset: The symptoms/episode began/occurred yesterday. Associated signs and symptoms: rn Pertinent positives: Photophobia Pertinent negatives: altered mental status, dizziness, neck stiffness, rash, vision loss, weakness, vertigo. Severity of symptoms: At its worst the pain was the "worst in my life", in the emergency department the pain is unchanged. The symptoms are alleviated by nothing. the symptoms are aggravated by lights, noise, stress. The patient has experienced similar episodes in the past. The patient has not recently seen a physician. Reports headache, states "worse of [my] life", no trauma. + several similar headaches in past but not this bad. Denies focal neurological complaints. NO vision or speech changes. Reports chronic pain and sees pain specialist. + aortic aneurysm but no cerebral aneurysm. Reports recent flu. . Historical: - Allergies: 01:44 Levaquin; fc 01:44 Sulfa (Sulfonamide Antibiotics); fc 01:44 PENICILLINS; fc - Home Meds: 01:44 Breo Ellipta 200-25 mcg/dose inhalation dsdv 1 puff every 4 hours [Active]; Centrum fc Silver Oral daily [Active]; duloxetine 60 mg Oral cpDR 1 cap once daily [Active]; fluorometholone 0.1 % ophthalmic drps 1 drop 2 times per day [Active]; levothyroxine 100 mcg tab 1 tab once daily [Active]; metoprolol tartrate 50 mg Oral tab 1 tab 2 times per day [Active]; [place] 10-325 mg Oral tab 1 tab every 4 hours for Pain [Active]; Plavix 75 mg Oral tab 1 tab once daily [Active]; prednisone 10 mg Oral tab once daily [Active]; simvastatin 20 mg Oral tab nightly [Active]; 02:25 Metamucil Smooth Texture Oral daily [Active]; Miralax 17 gram Oral pwpk 1 packet once fc daily [Active]; losartan 50 mg oral tab 1 tab once daily [Active]; magnesium 125 mg daily [Active]; hydrochlorothiazide 12.5 mg Oral tab 1 tab once daily [Active]; potassium chloride 8 mEq Oral cpER 1 cap once daily [Active]; Super B-50 Complex oral cap daily [Active]; Vitamin D Oral daily [Active]; oxycodone 15 mg Oral tab 1 tab qhs prn [Active]; aspirin 325 mg Oral tab 1 tab as needed [Active]; Lasix 40 mg Oral tab 1 tab 3-4 times a week prn [Active]; - PMHx: 01:44 AAA; Back pain; COPD; Degenerative disc disease; Lung Cancer; TIA; fc - PSHx: 01:44 CABG; Cholecystectomy; lung resection; fc - Immunization history:: Last tetanus immunization: unknown, Flu vaccine is not up to date. - Social history:: Smoking status: Patient/guardian denies using tobacco, the patient reports quitting approximately 12 years ago, Patient/guardian denies using alcohol, street drugs. - Ebola Screening: : Patient negative for fever greater than or equal to 101.5 degrees Fahrenheit, and additional compatible Ebola Virus Disease symptoms Patient denies exposure to infectious person Patient denies travel to an Ebola-affected area in the 21 days before illness onset. - Family history:: not pertinent. - Hospitalizations: : No recent hospitalization is reported. ROS: 02:50 Constitutional: Negative for fever, chills, and weight loss, Eyes: Negative for injury, rn pain, redness, and discharge, Neck: Negative for injury, swelling, Cardiovascular: Negative for chest pain, palpitations, and edema, Respiratory: Negative for shortness of breath, cough, wheezing, and pleuritic chest pain, Abdomen/GI: Negative for abdominal pain, nausea, vomiting, diarrhea, and constipation, MS/Extremity: Negative for injury and deformity, Skin: Negative for injury, rash, and discoloration, Neuro: Negative for weakness, numbness, tingling, and seizure. Exam: 02:50 Constitutional: This is a well developed, well nourished patient who is awake, alert, rn and in no acute distress. Head/Face: Normocephalic, atraumatic. ENT: MMM Neck: Trachea midline, no thyromegaly or masses palpated, and no cervical lymphadenopathy. Supple, full range of motion without nuchal rigidity, or vertebral point tenderness. No Meningismus. Cardiovascular: Regular rate and rhythm. No pulse deficits. Respiratory: No increased work of breathing, no retractions or nasal flaring. Abdomen/GI: soft, non-tender MS/ Extremity: Pulses equal, no cyanosis. Neurovascular intact. Full, normal range of motion. Equal circumference. Neuro: Awake and alert, GCS 15, oriented to person, place, time, and situation. Cranial nerves II-XII grossly intact. Motor strength 5/5 in all extremities. Sensory grossly intact. Cerebellar exam normal. Vital Signs: 01:26 BP 182 / 82; Pulse 80; Resp 18; Temp 99.7(O); Pulse Ox 97% on R/A; Weight 86.18 kg (R); fc Height 5 ft. 6 in. (167.64 cm) (R); Pain 7/10; 01:49 BP 179 / 86; Pulse 74; Resp 20; Pulse Ox 100% on 2 lpm NC; ak1 02:24 BP 155 / 55; Pulse 70; Resp 16; Pulse Ox 93% on 2 lpm NC; ak1 02:40 BP 175 / 66; Pulse 77; Resp 18; Pulse Ox 98% on 2 lpm NC; ak1 03:02 BP 158 / 71; Pulse 74; Resp 18; Pulse Ox 96% on R/A; ea 03:52 BP 151 / 65; Pulse 82; Resp 18; Pulse Ox 97% on 2 lpm NC; ak1 04:08 BP 145 / 56; Pulse 63; Resp 18; Temp 98.3(TE); Pulse Ox 97% on 2 lpm NC; ak1 05:09 BP 152 / 72; Pulse 71; Resp 18; Temp 98.2(TE); Pulse Ox 100% on 2 lpm NC; ak1 01:26 Body Mass Index 30.67 (86.18 kg, 167.64 cm) fc 01:49 pt states he uses 2L O2 at home for COPD. ak1 Clarinda Coma Score: 05:02 Eye Response: spontaneous(4). Verbal Response: oriented(5). Motor Response: obeys rn commands(6). Total: 15. MDM: 01:33 Patient medically screened. rn 05:02 Differential diagnosis: cluster headache, hypertensive headache, intracerebral rn hemorrhage, migraine, neoplasm, sinusitis, subarachnoid bleed, tension headache, vasomotor headache. Data reviewed: vital signs, nurses notes, lab test result(s), EKG, radiologic studies, and as a result, I will discharge patient. Counseling: I had a detailed discussion with the patient and/or guardian regarding: the historical points, exam findings, and any diagnostic results supporting the discharge/admit diagnosis, lab results, radiology results, the need for outpatient follow up, to return to the emergency department if symptoms worsen or persist or if there are any questions or concerns that arise at home. Response to treatment: the patient's symptoms have markedly improved after treatment, and as a result, I will discharge patient. Special discussion: I discussed with the patient/guardian in detail that at this point there is no indication for admission to the hospital. It is understood, however, that if the symptoms persist or worsen the patient needs to return immediately for re-evaluation. ED course: No acute findings on ct or ct head/neck angio. Normal neuro exam. Improved BP. Will dc home. Temperature rechecked several times and normal, not given any anti-pyretics. Patient states has had similar headaches for years, no gross changes other than hurting more than usual. BP was very high for EMS, about 200 systolic. . 01/28 01:34 Order name: CBC with Diff; Complete Time: 02:48 rn 01/28 01:34 Order name: Basic Metabolic Panel; Complete Time: 02:48 rn 01/28 01:34 Order name: Blood Culture Adult (2) rn 01/28 01:34 Order name: Procalcitonin; Complete Time: 03:35 rn 01/28 02:49 Order name: Flu; Complete Time: 03:49 rn 01/28 02:49 Order name: Strep; Complete Time: 03:49 rn 01/28 01:34 Order name: CT Head Brain wo Cont rn 01/28 02:57 Order name: CT Head Angio rn 01/28 02:57 Order name: CT Neck Angio rn 01/28 03:49 Order name: Throat Culture EDFL 01/28 01:34 Order name: IV Start; Complete Time: 01:36 rn 01/28 01:34 Order name: EKG; Complete Time: 01:34 rn 01/28 01:34 Order name: EKG - Nurse/Tech; Complete Time: :49 rn Administered Medications: :49 Drug: NS 0.9% 500 ml Route: IV; Rate: bolus; Site: right antecubital; ak1 02:53 Follow up: IV Status: Completed infusion; IV Intake: 500ml ak1 01:49 Not Given (Physician Discretion): Reglan 10 mg IVP once; over 1 to 2 minutes ak1 01:49 Drug: Demerol 25 mg Route: IVP; Site: right antecubital; ak1 02:53 Follow up: Response: No adverse reaction; Pain is decreased ak1 03:20 Follow up: Response: No adverse reaction; Pain is decreased ak1 03:00 Drug: Demerol 25 mg Route: IVP; Site: right antecubital; ak1 03:53 Follow up: Response: Pain is decreased ak1 05:06 Drug: Demerol 25 mg Route: IVP; Site: right antecubital; ak1 05:43 Follow up: Response: No adverse reaction; Pain is decreased ak1 Disposition: 01/28/19 05:05 Discharged to Home. Impression: Headache, Hypertension. - Condition is Stable. - Discharge Instructions: Migraine Headache, Hypertension. - Medication Reconciliation Form, Thank You Letter, Antibiotic Education, Prescription Opioid Use form. - Follow up: Private Physician; When: As needed; Reason: Recheck today's complaints, Re-evaluation by your physician. - Problem is new. - Symptoms have improved. Signatures: Dispatcher [employer] EDInes Maher RN RN Robbie Rae MD MD rn Krenek, Amber, RN RN ak1 Corrections: (The following items were deleted from the chart) 02: 01:44 Home Meds: cyclobenzaprine 10 mg Oral tab daily; PRN; [facility] 02: 01:44 Home Meds: lorazepam 0.5 mg Oral tab nightly; PRN; [facility] 02: 01:44 Home Meds: spironolactone 25 mg Oral tab 1 tab once daily; [facility] 05:42 05:05 01/28/2019 05:05 Discharged to Home. Impression: Headache; Hypertension. ak1 Condition is Stable. Forms are Medication Reconciliation Form, Thank You Letter, Antibiotic Education, Prescription Opioid Use. Follow up: Private Physician; When: As needed; Reason: Recheck today's complaints, Re-evaluation by your physician. Problem is new. Symptoms have improved. rn
--- NOTE | 2019-01-28 12:04 | RAD REPORT ---
EXAM DESCRIPTION: Head Brain Wo Cont CLINICAL HISTORY: HEADACHE COMPARISON: CT head June 03, 2015. TECHNIQUE: Multiple helical axial tomographic images were obtained of the head without intravenous c ontrast. This exam was performed according to our departmental dose-optimization program, which inclu ambar automated exposure control, adjustment of the mA and/or kV according to patient size and/or use o f iterative reconstruction technique. FINDINGS: Generalized brain volume loss is demonstrated. There is mild hypoattenuation in the perive ntricular white matter suggestive of chronic microvascular ischemic changes. There is no acute intrac ranial hemorrhage. No mass. No midline shift. No ventriculomegaly. Moralez-white matter differentiation is maintained. Paranasal sinuses are clear. Mastoid air cells and middle ear spaces are clear. Changes of lens repla cement noted. Osseous structures are unremarkable. Surrounding soft tissues are unremarkable. IMPRESSION: No acute intracranial process. Electronically signed by: Nicolas Martin MD 01/28/2019 2:38 AM TOPOLOGY PROFESSOR Due to temporary technical issues with the PACS/Fluency reporting system, reports are being signed by the in house radiologist as a courtesy to ensure prompt reporting. The interpreting radiologist is f ully responsible for the content of the report.
--- NOTE | 2019-01-28 12:06 | RAD REPORT ---
EXAM DESCRIPTION: CT Angiography Head With Intravenous Contrast CLINICAL HISTORY: The patient is 83 years old and is Male; worst headache of life TECHNIQUE: Axial computed tomographic angiography images of the head with intravenous contrast. Sa gittal and coronal reformatted images were created and reviewed. This CT exam was performed using o ne or more of the following dose reduction techniques: automated exposure control, adjustment of th e mA and/or kV according to patient size, and/or use of iterative reconstruction technique. MIP reconstructed images were created and reviewed. COMPARISON: No relevant prior studies available. FINDINGS: RIGHT INTERNAL CAROTID ARTERY: Atherosclerosis of the intracranial portion of the right internal carotid artery is present. Intracranial segment is patent with no significant stenosis. No aneurysm. RIGHT ANTERIOR CEREBRAL ARTERY: Unremarkable. No occlusion or significant stenosis. No aneur ysm. RIGHT MIDDLE CEREBRAL ARTERY: Unremarkable. No occlusion or significant stenosis. No aneurys m. RIGHT POSTERIOR CEREBRAL ARTERY: Unremarkable. No occlusion or significant stenosis. No aneu rysm. RIGHT VERTEBRAL ARTERY: Unremarkable as visualized. LEFT INTERNAL CAROTID ARTERY: Atherosclerosis of the intracranial portion of the left internal c arotid artery is present. Intracranial segment is patent with no significant stenosis. No aneurys m. LEFT ANTERIOR CEREBRAL ARTERY: The left anterior cerebral artery is hypoplastic. No occlusion or significant stenosis. No aneurysm. LEFT MIDDLE CEREBRAL ARTERY: Unremarkable. No occlusion or significant stenosis. No aneurysm . LEFT POSTERIOR CEREBRAL ARTERY: Unremarkable. No occlusion or significant stenosis. No aneur ysm. LEFT VERTEBRAL ARTERY: Unremarkable as visualized. BASILAR ARTERY: Unremarkable. No significant stenosis. No occlusion. No aneurysm. IMPRESSION: No evidence of occlusion or aneurysm of the intracranial arterial system. Electronically signed by: Laurie Leon MD 01/28/2019 4:49 AM STRAIGHT CUTTER MACHINE Due to temporary technical issues with the PACS/Fluency reporting system, reports are being signed by the in house radiologist as a courtesy to ensure prompt reporting. The interpreting radiologist is f ully responsible for the content of the report.
--- NOTE | 2019-01-28 12:06 | RAD REPORT ---
EXAM DESCRIPTION: CT Angiography Neck With Intravenous Contrast CLINICAL HISTORY: The patient is 83 years old and is Male; worst headache of life TECHNIQUE: Axial computed tomographic angiography images of the neck with intravenous contrast. Sa gittal and coronal reformatted images were created and reviewed. This CT exam was performed using o ne or more of the following dose reduction techniques: automated exposure control, adjustment of th e mA and/or kV according to patient size, and/or use of iterative reconstruction technique. MIP reconstructed images were created and reviewed. COMPARISON: No relevant prior studies available. FINDINGS: VASCULATURE: RIGHT COMMON CAROTID ARTERY: Unremarkable. No significant stenosis. No dissection or occlusi on. RIGHT INTERNAL CAROTID ARTERY: Atherosclerosis of the right internal carotid artery just beyond the bifurcation is present Extracranial segment is patent with no significant stenosis. No dissec tion or occlusion. RIGHT EXTERNAL CAROTID ARTERY: Unremarkable. No occlusion. RIGHT VERTEBRAL ARTERY: Minimal atherosclerosis of intracranial portion of the vertebral artery is present. No significant stenosis. No dissection or occlusion. LEFT COMMON CAROTID ARTERY: Unremarkable. No significant stenosis. No dissection or occlusio n. LEFT INTERNAL CAROTID ARTERY: Atherosclerosis of the left internal carotid artery just beyond th e bifurcation is present. Extracranial segment is patent with no significant stenosis. No dissect ion or occlusion. LEFT EXTERNAL CAROTID ARTERY: Unremarkable. No occlusion. LEFT VERTEBRAL ARTERY: Minimal atherosclerosis of the intracranial portion of the vertebral artery is present. No significant stenosis. No dissection or occlusion. NECK: BONES/JOINTS: No acute fracture. No dislocation. SOFT TISSUES: Unremarkable as visualized. No mass. CAROTID STENOSIS REFERENCE USING NASCET CRITERIA: % ICA stenosis = (1 - narrowest ICA diameter/diameter of distal cervical ICA) x 100. Mild - Moderate - 50-69% stenosis. Severe - 70-94% stenosis. Near occlusion - 95-99% stenosis. Occluded - 100% stenosis. IMPRESSION: 1. No evidence of occlusion. 2. Bilateral internal carotid artery mild stenosis. Electronically signed by: Laurie Leon MD 01/28/2019 4:36 AM ASSISTANT DISTRIBUTION MANAGER Due to temporary technical issues with the PACS/Fluency reporting system, reports are being signed by the in house radiologist as a courtesy to ensure prompt reporting. The interpreting radiologist is f ully responsible for the content of the report.
[2019-01-28 13:03] VITALS: BP 152/72; TEMP 98.2; O2SAT 100
--- NOTE | 2019-01-28 17:25 | EKG ---
Test Date: 2019-01-28 Test Time: 01:40:57 Press Hand: GWEN MEASUREMENT RESULTS: Intervals: Rate: 72 NE: 160 QRSD: 82 QT: 358 QTc: 392 [place]: P: 37 NE: 160 QRS: -50 T: 62 INTERPRETIVE STATEMENTS: Normal sinus rhythm with sinus arrhythmia Left axis deviation Abnormal ECG Compared to ECG 12/21/2018 06:10:42 Atrial premature complex(es) no longer present Electronically Signed On 01-28-19 17:21:54 DRY WALL FINISHER by Rajan Duque
--- OUTSIDE RECORDS SUMMARY | 2019-02-01 02:28 | XMS REPORT ---
:1935 Author Organization [facility] Address [address] [place] [address] Dr. Walters [address] [place] [address] Care Team Providers Name Role Phone USKI VEGA Unavailable Unavailable Problems This patient has [...] MDReport Verified Date/Time: 04/28/2017 15:21:39 Reading Location: [place] [address] Angio Body Reading RoomAddendum EndsFINAL REPORT CT [...] time, however, the referring physician is the Bean Picker Machine Operator Pulp Drier Firer of the [facility] and therefore no recommendation necessary. 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 2. Patent mesenteric and renal arteries. 3. Other findings as described above. 4. An addendum will be dictated regarding the non-vascular findings by the Bean Picker Machine Operator Radiologist. Signed: Marc Pierceeport Verified Date/Time: 04/28/2017 13:31:12 Reading Location: [place] [address] Cardiology MRI -CREATININE 2017-04-28 12:16:00 Test Item Value Reference Range Comments POC-CREATININE (MALLORY) (test 1.0 mg/dL 0.6-1.3 TESTED AT [facility] 6720 [id number]) [facility] [address] POC-EGFR (MALLORY) (test [id number]) 72 mL/min/1.73M2
== END 2019-01-28 05:42 | disposition home or self-care (01) ==
LOC: ER 01:31
DX: R51 Headache (principal); I10 Essential (primary) hypertension; J44.9 Chronic obstructive pulmonary disease, unspecified; M54.5 Low back pain; Z88.2 Allergy status to sulfonamides; Z88.0 Allergy status to penicillin; Z88.1 Allergy status to other antibiotic agents; Z85.118 Personal history of other malignant neoplasm of bronchus and lung; Z86.73 Personal history of transient ischemic attack (TIA), and cerebral infarction without residual deficits; Z95.1 Presence of aortocoronary bypass graft
CPT/HCPCS: 36415; 70450; 70496; 70498; 80048; 84145; 85025; 87040; 87070; 87081; 87804; 93005; 96361; 96374; 99285; J2175; J7040; Q9967

== ENCOUNTER 2019-01-28 14:05 | Observation (INO) | payer OTHER ==
--- NOTE | 2019-01-28 14:27 | RAD REPORT ---
EXAM DESCRIPTION: CT - Ct Stroke Brain Wo Cont - 01/28/2019 2:21 pm CLINICAL HISTORY: Aphasi CVA symptomology COMPARISON: Head angio dated 01/28/2019; Head Brain Wo Cont dated 01/28/2019; HEAD BRAIN W O CONTRAST dated 06/03/2015 TECHNIQUE: All CT scans are performed using dose optimization technique as appropriate and may inclu de automated exposure control or mA/KV adjustment according to patient size. FINDINGS: No intracranial hemorrhage, hydrocephalus or extra-axial fluid collection.Mild generalized brain atrophy is present with mild periventricular and deep white matter chronic microvascular ische sim changes.No areas of brain edema or evidence of midline shift. The paranasal sinuses and mastoids are clear. The calvarium is intact. IMPRESSION: No acute intracranial abnormality. If there is continued clinical concern for CVA, MR i maging of the brain would be recommended.
[2019-01-28 14:32] LABS: Absolute Lymphocytes (CBC) 2.9 K/uL (0.7-4.9); Basophils % 0.9 % (0-1.3); Hematocrit 36.6 % (39.6-49.0); Lymphocytes % 23.7 % (15.3-44.8); MPV 8.7 fL (7.6-11.3); RBC Red Blood Cell Count 3.98 M/uL (4.33-5.43)
[2019-01-28 14:41] LABS: Protime INR 0.86
[2019-01-28 14:45] LABS: Potassium 4.2 mmol/L (3.5-5.1)
[2019-01-28] MEDS ORDERED: MORPHINE 2 MG/ML SYR ONE ×2 (14:46→15:22)
[2019-01-28] MEDS ORDERED: ONDANSETRON 4 MG/2 ML VIAL ONE ×2 (15:22→15:27)
[2019-01-28] MEDS ORDERED: MEPERIDINE HCL 25 MG/0.5 ML ONE ×2 (15:26→19:22)
--- NOTE | 2019-01-28 15:54 | RAD REPORT ---
EXAM DESCRIPTION: MRI - Brain Wo Cont - 01/28/2019 3:36 pm CLINICAL HISTORY: APHASIA COMPARISON: January 28, [address] TECHNIQUE: Axial, sagittal, and coronal magnetic images of the brain were obtained. Contrast was not requested FINDINGS: Mild to moderate signal within periventricular, deep and subcortical white matter likely i schemic changes secondary to small vessel disease. Diffusion-weighted/ADC mapping does not reveal evidence of acute infarction. The ventricles are normal caliber. An extra-axial fluid collection is not present The sinuses and mastoids are clear. IMPRESSION: No acute abnormality displayed
[2019-01-28] MEDS ORDERED: PROMETHAZINE 25 MG/ML VIAL ONE ×2 (16:06→19:23)
--- NOTE | 2019-01-28 16:25 | RAD REPORT ---
EXAM DESCRIPTION: Satish Single View01/28/2019 3:50 pm CLINICAL HISTORY: Chest pain COMPARISON: November 2018 FINDINGS: Mild bilateral pulmonary opacities. The heart is mildly enlarged. Postsurgical changes involve the chest. IMPRESSION: Mild CHF
--- NOTE | 2019-01-28 17:15 | EDPHYS ---
Physician Documentation [facility] Name: Pedro Morales Age: 83 yrs Sex: Male : 1935 Arrival Date: 01/28/2019 Time: 14:03 Bed 7 Private MD: ED Physician Ernesto Fine HPI: 01/28 17:14 This 83 yrs old Male presents to ER via EMS with complaints of S/S of kdr Possible Stroke. 17:14 The patient's problem is reported as a facial droop, dysphasia, slurred speech. Onset: kdr The symptoms/episode began/occurred suddenly, just prior to arrival. Duration: The episodes are intermittent, The patient had two episodes that began CHEMICAL PROCESS ANALYST. The first lasted about five minutes and the second was two minutes. At time of arrival, the patient was back to baseline. The patient continues to have LEIJA and pain behind his eyes but o/w does not appear to be in any acute distress or with current neurological deficit . Context: the episode(s) was witnessed, by a bystander, by family, symptoms became apparent occurred at home, occurred while the patient was at rest. The symptoms are alleviated by nothing. The symptoms are aggravated by nothing. Associated signs and symptoms: The patient has no apparent associated signs or symptoms. Severity of symptoms: At their worst the symptoms were mild in the emergency department the symptoms are unchanged. Patient's baseline: Neuro:. The patient has been recently seen by a physician: The patient has been recently seen at the [facility] Emergency Department, Last night. Historical: - Allergies: 14:12 Levaquin; aa5 14:12 PENICILLINS; aa5 14:12 Sulfa (Sulfonamide Antibiotics); aa5 - PMHx: 14:12 AAA; Back pain; COPD; Degenerative disc disease; Lung Cancer; TIA; aa5 - PSHx: 14:12 CABG; Cholecystectomy; aa5 - Immunization history:: Adult Immunizations up to date. - Ebola Screening: : No symptoms or risks identified at this time. - Social history:: Smoking status: Patient/guardian denies using tobacco. ROS: 17:14 Constitutional: Negative for fever, chills, and weight loss, Eyes: Negative for injury, kdr pain, redness, and discharge, ENT: Negative for injury, pain, and discharge, Neck: Negative for injury, pain, and swelling, Cardiovascular: Negative for chest pain, palpitations, and edema, Respiratory: Negative for shortness of breath, cough, wheezing, and pleuritic chest pain, Abdomen/GI: Negative for abdominal pain, nausea, vomiting, diarrhea, and constipation, Back: Negative for injury and pain, : Negative for injury, bleeding, discharge, and swelling, MS/Extremity: Negative for injury and deformity, Skin: Negative for injury, rash, and discoloration, Psych: Negative for depression, anxiety, suicide ideation, homicidal ideation, and hallucinations, Allergy/Immunology: Negative for hives, rash, and allergies, Endocrine: Negative for neck swelling, polydipsia, polyuria, polyphagia, and marked weight changes, Hematologic/Lymphatic: Negative for swollen nodes, abnormal bleeding, and unusual bruising. 17:14 Neuro: Positive for dizziness, headache, speech changes, weakness, Negative for hearing loss, seizure activity. Exam: 14:55 Radiologist reports: Neg - Winston kdr 17:14 Constitutional: This is a well developed, well nourished patient who is awake, alert, kdr and in mild ot moderate distress. Head/Face: Normocephalic, atraumatic. Eyes: Pupils equal round and reactive to light, extra-ocular motions intact. Lids and lashes normal. Conjunctiva and sclera are non-icteric and not injected. Cornea within normal limits. Periorbital areas with no swelling, redness, or edema. Neck: Trachea midline, no thyromegaly or masses palpated, and no cervical lymphadenopathy. Supple, full range of motion without nuchal rigidity, or vertebral point tenderness. No Meningismus. Chest/axilla: Normal chest wall appearance and motion. Nontender with no deformity. No lesions are appreciated. Cardiovascular: Regular rate and rhythm with a normal S1 and S2. No gallops, murmurs, or rubs. Normal PMI, no JVD. No pulse deficits. Respiratory: Lungs have equal breath sounds bilaterally, clear to auscultation and percussion. No rales, rhonchi or wheezes noted. No increased work of breathing, no retractions or nasal flaring. Abdomen/GI: Soft, non-tender, with normal bowel sounds. No distension or tympany. No guarding or rebound. No evidence of tenderness throughout. Back: No spinal tenderness. No costovertebral tenderness. Full range of motion. Skin: Warm, dry with normal turgor. Normal color with no rashes, no lesions, and no evidence of cellulitis. MS/ Extremity: Pulses equal, no cyanosis. Neurovascular intact. Full, normal range of motion. Psych: Awake, alert, with orientation to person, place and time. Behavior, mood, and affect are within normal limits. 17:14 Neuro: Orientation: is normal, Mentation: is normal, Cranial nerves: is grossly normal based on the patient's age, Cerebellar function: is grossly normal based on the patient's age, no acute changes, normal finger to nose testing, heel to wade testing is normal, able to perform alternating rapid hand movements, Motor: moves all fours, seizure activity, is not displayed by the patient, Abnormal movements: there are no abnormal movements. Vital Signs: 15:28 BP 170 / 67; Pulse 71; Resp 19; Temp 98.3(TE); Pulse Ox 97% on R/A; jb1 16:45 BP 179 / 74; Pulse 82; Resp 20; Pulse Ox 95% ; aj1 17:41 BP 182 / 75; Pulse 88; Resp 20; Pulse Ox 97% on R/A; aj1 18:20 BP 172 / 77; Pulse 85; Resp 18; Pulse Ox 99% on R/A; aj1 20:01 BP 158 / 81; Pulse 70; Resp 15; Temp 98.2; Pulse Ox 95% on R/A; aj1 NIH Stroke Scale Scores: 14:11 NIHSS Score: 0 aa5 14:22 NIHSS Score: 0 aj1 14:55 NIHSS Score: 0 kdr Procedures: 18:07 Lumbar Puncture: Patient placed in sitting position. Prepped with Betadine. Draped jr8 using sterile technique. Collected 8 ml's of clear fluid. Sample sent to lab. Puncture site dressed with band aid, Patient tolerated well. MDM: 17:14 Patient medically screened. kdr 17:14 Data reviewed: vital signs, nurses notes, lab test result(s), radiologic studies. kdr Counseling: I had a detailed discussion with the patient and/or guardian regarding: the historical points, exam findings, and any diagnostic results supporting the discharge/admit diagnosis, lab results, radiology results, the need for further work-up and treatment in the hospital. ED course: The patient had CT/CTA last night and had refused LP. Will now consider LP. D/w family and they now agree to attempt LP. Since the patient has had some prior back surgeries, I advised them that we will make an attempt to obtain SCF but that it may be necessary to have radiology perform the LP under fluoroscopy tomorrow. The patient current is resting but appear restless and is asking for water repeatedly. His VS otherwise remain stable. The family has no further questions at this time after review of the work-up that had been done last night and today.. 01/28 14:12 Order name: Basic Metabolic Panel; Complete Time: 15:56 aa 01/28 14:12 Order name: CBC with Diff; Complete Time: 15:56 aa 01/28 14:12 Order name: Protime (+inr); Complete Time: 15:56 aa5 01/28 14:12 Order name: Ptt, Activated; Complete Time: 15:56 aa 01/28 14:33 Order name: Glucose, Ancillary Testing; Complete Time: 15:56 [facility] 01/28 17:59 Order name: CSF Cell Count [facility] 01/28 17:59 Order name: CSF Bacterial Antigens (tube 1) [facility] 01/28 17:59 Order name: Csf Culture [facility] 01/28 17:59 Order name: Spinal Fluid Profile [facility] 01/28 18:19 Order name: CKMB Creatine Kinase MB [facility] 01/28 18:19 Order name: CKMB Creatine Kinase MB [facility] 01/28 18:19 Order name: Creatine Phosphokinase [facility] 01/28 18:19 Order name: Creatine Phosphokinase [facility] 01/28 18:19 Order name: Lipid Profile [facility] 01/28 14:12 Order name: CT Stroke Brain w/o Contrast; Complete Time: 15:56 [facility] 01/28 14:12 Order name: Stroke CXR 1 View; Complete Time: 16:59 [facility] 01/28 14:12 Order name: EKG; Complete Time: 14:19 [facility] 01/28 14:25 Order name: MRI - Brain Wo Cont eb 01/28 16:24 Order name: MRI; Complete Time: 16:59 [facility] 01/28 18:19 Order name: NPO [facility] 01/28 18:19 Order name: NPO [facility] 01/28 18:19 Order name: Lipid Profile [facility] 01/28 18:19 Order name: Troponin I [facility] 01/28 18:19 Order name: Troponin I [facility] 01/28 14:12 Order name: Accucheck; Complete Time: 14:01/28 14:12 Order name: Cardiac monitoring; Complete Time: 14:01/28 14:12 Order name: EKG - Nurse/Tech; Complete Time: 14:01/28 14:12 Order name: IV Saline Lock; Complete Time: 14:01/28 14:12 Order name: Labs collected and sent; Complete Time: 14:01/28 14:12 Order name: NPO; Complete Time: 14:01/28 14:12 Order name: O2 Per Protocol; Complete Time: 14:01/28 14:12 Order name: O2 Sat Monitoring; Complete Time: 14:01/28 17:59 Order name: Lumbar Puncture Setup; Complete Time: 18: kdr 01/28 17:59 Order name: LP Consents; Complete Time: 18: [facility] 01/28 18:19 Order name: NPO EDAL Administered Medications: 14:48 Drug: morphine 2 mg Route: IVP; Site: left hand; aj1 15:00 Follow up: Response: No adverse reaction; RASS: Alert and Calm (0) 15:27 Drug: Demerol 25 mg {Note: RASS score 0, patient is alert.} Route: IVP; Site: left hand;aj1 16:30 Follow up: Response: No adverse reaction; Pain is decreased; RASS: Drowsy (-1) 15:27 Drug: Zofran 2 mg Route: IVP; Site: left hand; aj1 16:30 Follow up: Response: No adverse reaction 16:08 Drug: Phenergan 12.5 mg Route: IVP; Site: left hand; bp 17:00 Follow up: Response: No adverse reaction 19:29 Drug: Demerol 25 mg Route: IVP; Site: left hand; aj1 20:09 Follow up: Response: No adverse reaction; Pain is decreased; RASS: Drowsy (-1) aj 19:29 Drug: Phenergan 12.5 mg Route: IVP; Site: left antecubital; aj1 20:09 Follow up: Response: No adverse reaction aj1 Point of Care Testing: Blood Glucose: 14:21 Blood Glucose: 84 mg/dL; aj1 Ranges: Critical Glucose Levels:Adult <50 mg/dl or >400 mg/dl <40 mg/dl or >180 mg/dl Disposition: 19:28 I agree with the assessment and plan of care. kdr Disposition: 01/28/19 17:14 Hospitalization ordered by Marcia Gomez for Observation. Preliminary diagnosis are Headache, Altered mental status, unspecified, Slurred speech. - Bed requested for Telemetry/MedSurg (observation). - Status is Observation. aj1 - Condition is Fair. - Problem is new. - Symptoms are resolved. UTI on Admission? No NIH Stroke Scale - NIH Stroke Score Date: 01/28/2019 Time: 14:11 Total Score = 0 1a. Level of Consciousness (LOC) - 0(Alert) 1b. Level of Consciousness (LOC) (Year \T\ Age) - 0(Both) 1c. LOC Commands (Open \T\ Closes Eyes/Olericulturist) - 0(Both) 2. Best Gaze (Lateral Gaze Paresis) - 0(Normal) 3. Visual Field Loss - 0(No visual loss) 4. Facial Palsy - 0(Normal) 5a. Left Arm: Motor (10-second hold) - 0(No drift) 5b. Right Arm: Motor (10-second hold) - 0(No drift) 6a. Left Leg: Motor (5-second hold - always test supine) - 0(No drift) 6b. Right Leg: Motor (5-second hold - always test supine) - 0(No drift) 7. Limb Ataxia (finger/nose \T\ heel/wade - test with eyes open) - 0(Absent) 8. Sensory Loss (pinprick arms/legs/face) - 0(Normal) 9. Best Language: Aphasia (description/naming/reading) - 0(No aphasia) 10. Dysarthria (speech clarity - read or repeat words) - 0(Normal) 11. Extinction and Inattention (visual/tactile/auditory/spatial/personal) - 0(No abnormality) Initials: aa5 NIH Stroke Scale - NIH Stroke Score Date: 01/28/2019 Time: 14:22 Total Score = 0 1a. Level of Consciousness (LOC) - 0(Alert) 1b. Level of Consciousness (LOC) (Year \T\ Age) - 0(Both) 1c. LOC Commands (Open \T\ Closes Eyes/Olericulturist) - 0(Both) 2. Best Gaze (Lateral Gaze Paresis) - 0(Normal) 3. Visual Field Loss - 0(No visual loss) 4. Facial Palsy - 0(Normal) 5a. Left Arm: Motor (10-second hold) - 0(No drift) 5b. Right Arm: Motor (10-second hold) - 0(No drift) 6a. Left Leg: Motor (5-second hold - always test supine) - 0(No drift) 6b. Right Leg: Motor (5-second hold - always test supine) - 0(No drift) 7. Limb Ataxia (finger/nose \T\ heel/wade - test with eyes open) - 0(Absent) 8. Sensory Loss (pinprick arms/legs/face) - 0(Normal) 9. Best Language: Aphasia (description/naming/reading) - 0(No aphasia) 10. Dysarthria (speech clarity - read or repeat words) - 0(Normal) 11. Extinction and Inattention (visual/tactile/auditory/spatial/personal) - 0(No abnormality) Initials: aj1 NIH Stroke Scale - NIH Stroke Score Date: 01/28/2019 Time: 14:55 Total Score = 0 1a. Level of Consciousness (LOC) - 0(Alert) 1b. Level of Consciousness (LOC) (Year \T\ Age) - 0(Both) 1c. LOC Commands (Open \T\ Closes Eyes/Olericulturist) - 0(Both) 2. Best Gaze (Lateral Gaze Paresis) - 0(Normal) 3. Visual Field Loss - 0(No visual loss) 4. Facial Palsy - 0(Normal) 5a. Left Arm: Motor (10-second hold) - 0(No drift) 5b. Right Arm: Motor (10-second hold) - 0(No drift) 6a. Left Leg: Motor (5-second hold - always test supine) - 0(No drift) 6b. Right Leg: Motor (5-second hold - always test supine) - 0(No drift) 7. Limb Ataxia (finger/nose \T\ heel/wade - test with eyes open) - 0(Absent) 8. Sensory Loss (pinprick arms/legs/face) - 0(Normal) 9. Best Language: Aphasia (description/naming/reading) - 0(No aphasia) 10. Dysarthria (speech clarity - read or repeat words) - 0(Normal) 11. Extinction and Inattention (visual/tactile/auditory/spatial/personal) - 0(No abnormality) Initials: kdr Signatures: Dispatcher [employer] EDMS Maggy Yanes RN RN aj1 Trisha Heart RN RN dw Ernesto Fine MD MD kdr Latasha Smallwood RN RN aa5 Zackary Jones PA PA jr8 Grover Mark RN RN bp Corrections: (The following items were deleted from the chart) 19:36 17:14 Hospitalization Ordered by A Patricia LARA for Observation. Preliminary dw diagnosis is Headache; Altered mental status, unspecified; Slurred speech. Bed requested for Telemetry/MedSurg (observation). Status is Observation. Condition is Fair. Problem is new. Symptoms are resolved. UTI on Admission? No. kdr 20:15 19:36 01/28/2019 17:14 Hospitalization Ordered by A Patricia LARA for Observation. aj1 Preliminary diagnosis is Headache; Altered mental status, unspecified; Slurred speech. Bed requested for Telemetry/MedSurg (observation). Status is Observation. Condition is Fair. Problem is new. Symptoms are resolved. UTI on Admission? No. dw
--- NOTE | 2019-01-28 17:15 | ER ---
Nurse's Notes [facility] Name: Pedro Morales Age: 83 yrs Sex: Male : 1935 Arrival Date: 01/28/2019 Time: 14:03 Bed 7 Private MD: Diagnosis: Headache;Altered mental status, unspecified;Slurred speech Presentation: 01/28 14:11 Presenting complaint: EMS states: difficulty speaking and aphasia that began today at aa5 1200. EMS reports pt had an episode of aphasia upon scene arrival that lasted approximately 5 minutes and another episode while en route to the hospital that lasted approximately 2 minutes. EMS also reports left facial droop upon scene arrival. Pt currently A\T\O x 4 with clear speech noted. 14:11 Acuity: ZACHERY 2 aa5 14:11 Transition of care: patient was not received from another setting of care. The patients aa5 blood glucose was checked before arriving to the hospital and was found to be normal. Risk Assessment: Do you want to hurt yourself or someone else? Patient reports no desire to harm self or others. Care prior to arrival: IV initiated. 22 GA, in the left hand. 14:11 Method Of Arrival: EMS: [facility] aa5 14:20 Onset of symptoms was January 28, 2019 at 12:00. Initial Sepsis Screen: Does the aj1 patient meet any 2 criteria? No. Patient's initial sepsis screen is negative. Does the patient have a suspected source of infection? No. Patient's initial sepsis screen is negative. 16:46 No acute neurological deficit is noted. aj1 Triage Assessment: 20:06 The onset of the patients symptoms was January 28, 2019 at 12:00. aj1 Stroke Activation: Symtpom onset >3 hours and < 6 hours Physician: Stroke Attending; Name: ; Notified At: ; Arrived At: Physician: Chief Stroke Resident; Name: ; Notified At: ; Arrived At: Physician: Stroke Resident; Name: ; Notified At: ; Arrived At: Physician: ED Attending; Name: Babatunde; Notified At: 14:03; Arrived At: 14:20 Physician: ED Resident; Name: ; Notified At: ; Arrived At: Historical: - Allergies: 14:12 Levaquin; aa5 14:12 PENICILLINS; aa5 14:12 Sulfa (Sulfonamide Antibiotics); aa5 - PMHx: 14:12 AAA; Back pain; COPD; Degenerative disc disease; Lung Cancer; TIA; aa5 - PSHx: 14:12 CABG; Cholecystectomy; aa5 - Immunization history:: Adult Immunizations up to date. - Ebola Screening: : No symptoms or risks identified at this time. - Social history:: Smoking status: Patient/guardian denies using tobacco. Screenin:55 Abuse screen: Denies threats or abuse. Denies injuries from another. Nutritional aj1 screening: No deficits noted. Tuberculosis screening: No symptoms or risk factors identified. 20:04 Fall Risk No fall in past 12 months (0 pts). Secondary diagnosis (15 points) TIA, IV aj1 access (20 points). Ambulatory Aid- None/Bed Rest/Nurse Assist (0 pts). Gait- Normal/Bed Rest/Wheelchair (0 pts) Mental Status- Oriented to own ability (0 pts). Total Macias Fall Scale indicates Low Risk Score (25-44 pts). Family Present and informed to notify staff if they need to leave bedside. Assessment: 14:03 Reassessment: Code stroke called after receiving EMS report via telephone, prior to aj1 patient's arrival to facility. 14:11 Reassessment: Pt to CT via EMS stretcher, accompanied by me and EMS . aa5 14:18 Reassessment: Pt to ER Room 7 via EMS stretcher accompanied by me and EMS. . aa5 14:20 Reassessment: Dr. Fine at bedside to evaluate patient. aj1 14:20 Reassessment: Program Development Manager at bedside to collect lab specimens. aj1 14:21 Reassessment: FSBS obtained and is 84 at this time. aj1 14:22 Reassessment: EKG obtained at bedside and shown to Dr. Fine. aj1 14:22 VAN Scoring: Arm Drift: Patients demonstrates NO arm weakness. Patient is VAN Negative. aj1 Visual Disturbance: No visual disturbance noted. Aphasia: No aphasia noted. Neglect: No neglect noted. 14:25 Reassessment:. General: Appears in no apparent distress. uncomfortable, Behavior is aj1 calm, cooperative, appropriate for age. Pain: Complains of pain in top of head, right eye, left eye and neck Pain does not radiate. Pain currently is 5 out of 10 on a pain scale. Quality of pain is described as aching, throbbing, Pain began 2 hours ago. Neuro: Level of Consciousness is awake, alert, obeys commands, Oriented to person, place, time, situation, Paleology Teacher are equal bilaterally Moves all extremities. Full function Speech is normal, Reports slurred speech that has now resolved. Patient reports trouble finding the words that he wants to say. Cardiovascular: Patient's skin is warm and dry. Respiratory: Airway is patent Respiratory effort is even, unlabored, Respiratory pattern is regular, symmetrical. GI: No signs and/or symptoms were reported involving the gastrointestinal system. : No signs and/or symptoms were reported regarding the genitourinary system. EENT: No signs and/or symptoms were reported regarding the EENT system. Derm: No signs and/or symptoms reported regarding the dermatologic system. Skin is pink, warm \T\ dry. normal. Musculoskeletal: No signs and/or symptoms reported regarding the musculoskeletal system. Circulation, motion, and sensation intact. 14:45 Reassessment: Patient refuses to go to MRI until he is given pain medication. Notified narciso Fine. 14:50 Reassessment: Patient transported to MRI via stretcher. aj1 15:22 Reassessment: Patient transported back to room, MRI was not completed, patient told MRI aj1 tech that he would not continue the MRI with out more pain medication. pharmacy technician infusion called to have nursing staff come to MRI and give patient pain medication while in radiology, but patient refuses, states that it would take too long and told pharmacy technician infusion to take him back to his room now. Dr. Fine notified of patient request. 15:25 Reassessment: Pain medication was brought to patient, per verbal orders from Dr. narciso Fine. Patient states that he does not want morphine, he wants Demerol. Notified Dr. Fine. 15:30 Reassessment: Patient is sitting on the side of the bed, patient was instructed that it aj1 would be better if he would lie back since he has received multiple narcotic pain medications at this time, and this puts him at risk for falling. Patient refuses. States that he feels like he is going to throw up so he is going to sit on the side of the bed. Patient has already been medicated for nausea. Patient states that he needs yellow non-slip socks, patient provided yellow, non-slip socks. 15:34 Reassessment: CXR at bedside. aj1 16:15 Reassessment: Patient's family is concerned because patient appears to be drowsy, aj1 falling asleep. Patient reports that he is feeling short of breath. O2 sat is 100% on room air at this time, respirations are even and unlabored. Patient was repositioned in the bed and states that this helped with his shortness of breath. Patient awakens easily to verbal stimuli and answers questions appropriately while awake. Notified Dr. Fine of patient's family's concern. Patient's family was educated that drowsiness is an expected side effect of narcotic pain medication. Will continue to monitor. 17:15 Reassessment: Patient appears in no apparent distress at this time. No changes from aj1 previously documented assessment. Patient and/or family updated on plan of care and expected duration. Pain level reassessed. Patient is alert, oriented x 3, equal unlabored respirations, skin warm/dry/pink. 17:15 Reassessment: LP consent obtained by Maggy Yanes RN. aa5 17:35 Reassessment: Consent obtained for lumbar puncture. aj1 17:40 Reassessment: TORI Hodgson at bedside to perform lumbar puncture. aj1 18:00 Reassessment: Pt was instructed to remain supine for 1 hour, pt unable to tolerate aa5 supine position, head elevated 30 degrees. Pt verbalized understanding to remain in this position for 1 hour post LP. . 18:20 Reassessment: Patient appears in no apparent distress at this time. No changes from aj1 previously documented assessment. Patient and/or family updated on plan of care and expected duration. Pain level reassessed. Patient is alert, oriented x 3, equal unlabored respirations, skin warm/dry/pink. 18:35 Patient has been NPO before screening. The patient is alert, and able to follow aj1 commands. The patient does not exhibit slurred or garbled speech. The patient is not exhibiting difficulty speaking. The patient does not exhibit difficulty understanding words. The patient is able to swallow own secretions with no drooling or need for suction. Patient tolerated one teaspoon of water. No drooling, immediate coughing, gurgling, or clearing of the throat was noted. The patient tolerated 90mL of water. No drooling, immediate coughing, gurgling, or clearing of the throat was noted. The patient passed the bedside swallow screening. Oral medications may be given as ordered. Contact Physician for further diet orders. Provider notified of bedside swallow screening results: Ernesto Fine MD. 19:25 Reassessment: Patient states that he would like more pain and nausea medication. aj1 Notified Dr. Fine, order received. 19:59 Reassessment: Patient and/or family updated on plan of care and expected duration. Pain aj1 level reassessed. General: Appears in no apparent distress. comfortable, Behavior is calm, cooperative, appropriate for age. Neuro: Level of Consciousness is awake, alert, obeys commands, Oriented to person, place, time, situation, Speech is normal. Cardiovascular: Patient's skin is warm and dry. Respiratory: Airway is patent Respiratory effort is even, unlabored, Respiratory pattern is regular, agonal. GI: No signs and/or symptoms were reported involving the gastrointestinal system. : No signs and/or symptoms were reported regarding the genitourinary system. EENT: No signs and/or symptoms were reported regarding the EENT system. Derm: No signs and/or symptoms reported regarding the dermatologic system. Skin is pink, warm \T\ dry. normal. Musculoskeletal: No signs and/or symptoms reported regarding the musculoskeletal system. Circulation, motion, and sensation intact. 20:03 T-PA (Activase) Screening: Contraindications: Over 80 years old: Yes. aj1 Vital Signs: 15:28 BP 170 / 67; Pulse 71; Resp 19; Temp 98.3(TE); Pulse Ox 97% on R/A; jb1 16:45 BP 179 / 74; Pulse 82; Resp 20; Pulse Ox 95% ; aj1 17:41 BP 182 / 75; Pulse 88; Resp 20; Pulse Ox 97% on R/A; aj1 18:20 BP 172 / 77; Pulse 85; Resp 18; Pulse Ox 99% on R/A; aj1 20:01 BP 158 / 81; Pulse 70; Resp 15; Temp 98.2; Pulse Ox 95% on R/A; aj1 NIH Stroke Scale Scores: 14:11 NIHSS Score: 0 aa5 14:22 NIHSS Score: 0 aj1 14:55 NIHSS Score: 0 kdr ED Course: 14:10 Ernesto Fine MD is Attending Physician. kdr 14:11 Patient arrived in ED. aa5 14:11 Arm band placed on. aa5 14:24 CT Stroke Brain w/o Contrast In Process Unspecified. EDMS 14:25 Maggy Yanes, RN is Primary Nurse. aj1 14:26 Triage completed. aj1 14:42 EKG done, by weed science research technician. reviewed by Ernesto Fine MD. sm3 14:55 Patient has correct armband on for positive identification. aj1 14:55 No provider procedures requiring assistance completed. aj1 16:22 Stroke CXR 1 View In Process Unspecified. EDMS 17:04 Marcia Gomez MD is Hospitalizing Provider. kdr 18:00 Assist provider with lumbar puncture: Set up LP tray. Performed by Zackary VALLE CSF aa5 is clear. Puncture site dressed with band aid, Procedure was successful. Patient tolerated Procedure started at 1740 and completed at 1800. 20:05 Patient admitted, IV remains in place. aj1 Administered Medications: 14:48 Drug: morphine 2 mg Route: IVP; Site: left hand; aj1 15:00 Follow up: Response: No adverse reaction; RASS: Alert and Calm (0) aj1 15:27 Drug: Demerol 25 mg {Note: RASS score 0, patient is alert.} Route: IVP; Site: left hand;aj1 16:30 Follow up: Response: No adverse reaction; Pain is decreased; RASS: Drowsy (-1) aj1 15:27 Drug: Zofran 2 mg Route: IVP; Site: left hand; aj1 16:30 Follow up: Response: No adverse reaction aj1 16:08 Drug: Phenergan 12.5 mg Route: IVP; Site: left hand; bp 17:00 Follow up: Response: No adverse reaction aj1 19:29 Drug: Demerol 25 mg Route: IVP; Site: left hand; aj1 20:09 Follow up: Response: No adverse reaction; Pain is decreased; RASS: Drowsy (-1) aj1 19:29 Drug: Phenergan 12.5 mg Route: IVP; Site: left antecubital; aj1 20:09 Follow up: Response: No adverse reaction aj1 Point of Care Testing: Blood Glucose: 14:21 Blood Glucose: 84 mg/dL; aj1 Ranges: Outcome: 17:14 Decision to Hospitalize by Provider. kdr 20:05 Admitted to Tele accompanied by cheli, via stretcher, with chart, Report called to narciso Almonte RN on 2nd floor 20:05 Condition: stable 20:05 Discharge instructions given to patient, family, Instructed on the need for admit, Demonstrated understanding of instructions. 20:15 Patient left the ED. aj1 NIH Stroke Scale - NIH Stroke Score Date: 01/28/2019 Time: 14:11 Total Score = 0 1a. Level of Consciousness (LOC) - 0(Alert) 1b. Level of Consciousness (LOC) (Year \T\ Age) - 0(Both) 1c. LOC Commands (Open \T\ Closes Eyes/Contract Designer) - 0(Both) 2. Best Gaze (Lateral Gaze Paresis) - 0(Normal) 3. Visual Field Loss - 0(No visual loss) 4. Facial Palsy - 0(Normal) 5a. Left Arm: Motor (10-second hold) - 0(No drift) 5b. Right Arm: Motor (10-second hold) - 0(No drift) 6a. Left Leg: Motor (5-second hold - always test supine) - 0(No drift) 6b. Right Leg: Motor (5-second hold - always test supine) - 0(No drift) 7. Limb Ataxia (finger/nose \T\ heel/wade - test with eyes open) - 0(Absent) 8. Sensory Loss (pinprick arms/legs/face) - 0(Normal) 9. Best Language: Aphasia (description/naming/reading) - 0(No aphasia) 10. Dysarthria (speech clarity - read or repeat words) - 0(Normal) 11. Extinction and Inattention (visual/tactile/auditory/spatial/personal) - 0(No abnormality) Initials: aa5 NIH Stroke Scale - NIH Stroke Score Date: 01/28/2019 Time: 14:22 Total Score = 0 1a. Level of Consciousness (LOC) - 0(Alert) 1b. Level of Consciousness (LOC) (Year \T\ Age) - 0(Both) 1c. LOC Commands (Open \T\ Closes Eyes/Contract Designer) - 0(Both) 2. Best Gaze (Lateral Gaze Paresis) - 0(Normal) 3. Visual Field Loss - 0(No visual loss) 4. Facial Palsy - 0(Normal) 5a. Left Arm: Motor (10-second hold) - 0(No drift) 5b. Right Arm: Motor (10-second hold) - 0(No drift) 6a. Left Leg: Motor (5-second hold - always test supine) - 0(No drift) 6b. Right Leg: Motor (5-second hold - always test supine) - 0(No drift) 7. Limb Ataxia (finger/nose \T\ heel/wade - test with eyes open) - 0(Absent) 8. Sensory Loss (pinprick arms/legs/face) - 0(Normal) 9. Best Language: Aphasia (description/naming/reading) - 0(No aphasia) 10. Dysarthria (speech clarity - read or repeat words) - 0(Normal) 11. Extinction and Inattention (visual/tactile/auditory/spatial/personal) - 0(No abnormality) Initials: aj1 NIH Stroke Scale - NIH Stroke Score Date: 01/28/2019 Time: 14:55 Total Score = 0 1a. Level of Consciousness (LOC) - 0(Alert) 1b. Level of Consciousness (LOC) (Year \T\ Age) - 0(Both) 1c. LOC Commands (Open \T\ Closes Eyes/Contract Designer) - 0(Both) 2. Best Gaze (Lateral Gaze Paresis) - 0(Normal) 3. Visual Field Loss - 0(No visual loss) 4. Facial Palsy - 0(Normal) 5a. Left Arm: Motor (10-second hold) - 0(No drift) 5b. Right Arm: Motor (10-second hold) - 0(No drift) 6a. Left Leg: Motor (5-second hold - always test supine) - 0(No drift) 6b. Right Leg: Motor (5-second hold - always test supine) - 0(No drift) 7. Limb Ataxia (finger/nose \T\ heel/wade - test with eyes open) - 0(Absent) 8. Sensory Loss (pinprick arms/legs/face) - 0(Normal) 9. Best Language: Aphasia (description/naming/reading) - 0(No aphasia) 10. Dysarthria (speech clarity - read or repeat words) - 0(Normal) 11. Extinction and Inattention (visual/tactile/auditory/spatial/personal) - 0(No abnormality) Initials: kdr Signatures: Dispatcher [employer] EDMS Nelson Kohler jb1 Maggy Yanes RN RN aj1 Ernesto Fine MD MD kdr Latasha Smallwood RN RN aa5 Grovre Mark, RN RN Tori Fortune 3 Corrections: (The following items were deleted from the chart) 14:22 14:03 Patient arrived in ED. aa5 [facility] 14:29 14:26 Acuity: ZACHERY 2 aj1 aa 14:29 14:11 Presenting complaint: EMS states: difficulty speaking and aphasia that aa5 began today at 1200. EMS reports pt had an episode of aphasia upon scene arrival that lasted approximately 5 minutes and another episode while en route to the hospital [facility] 14:49 14:03 Reassessment: Code stroke called after receiving EMS report aj1 aj1 15:31 15:22 Reassessment: Patient transported back to room, MRI was not completed, aj1 patient told pharmacy technician infusion that he would not continue the MRI with out more pain medication. pharmacy technician infusion called to have nursing staff come to MRI and give patient pain medication while in radiology, but patient refuses, states that it would take too long and told pharmacy technician infusion to take him back to his room now. aj1
--- NOTE | 2019-01-28 17:22 | EKG ---
Test Date: 2019-01-28 Test Time: 14:25:18 Sales And Marketing Representative: SAMANTHA MEASUREMENT RESULTS: Intervals: Rate: 63 NM: 180 QRSD: 86 QT: 380 QTc: 388 [place]: P: 34 NM: 180 QRS: -44 T: 73 INTERPRETIVE STATEMENTS: Sinus rhythm with premature atrial complexes in a pattern of bigeminy Left axis deviation Abnormal ECG Compared to ECG 01/28/2019 01:40:57 Atrial premature complex(es) now present Sinus arrhythmia no longer present Electronically Signed On 01-28-19 17:21:16 PACKAGE DYE STAND LOADER by Rajan Duque
[2019-01-28 18:29] LABS: CSF Glucose 60 mg/dL (40-70)
[2019-01-28] MEDS ORDERED: NA CHLORIDE 0.9% 1,000 ML IV SCH (19:00)
[2019-01-28 19:17] LABS: Appearance CLEAR (CLEAR); Body Fluid Source CSF; Body Fluid WBC 1 /mm^3; Color of fluid Colorless (COLORLESS)
[2019-01-28 19:19] LABS: Appearance CLEAR (CLEAR); Body Fluid Source CSF; Body Fluid WBC 0 /mm^3; Color of fluid Colorless (COLORLESS); Fluid Total Volume 1.5 ml
[2019-01-28] MEDS ORDERED: POLYETHYL GLY 3350 17 GM/DOSE PO PRN ×2 (21:52→22:55)
[2019-01-28] MEDS ORDERED: LORAZEPAM 0.5 MG TABLET PO PRN (21:52)
[2019-01-28 21:55] LABS: Urine Appearance CLEAR; Urine Bilirubin NEGATIVE (NEG); Urine Blood NEGATIVE (NEG); Urine Color YELLOW; Urine Glucose NEGATIVE (NEG); Urine Protein NEGATIVE (NEG); Urine Specific Gravity 1.015 (1.005-1.030); Urine Urobilinogen 0.2 mg/dL (0.2-1.0)
[2019-01-28 21:57] LABS: Urine Microscopic Reflex NO UMIC
[2019-01-28] MEDS: IPRATROPIUM BROM 0.5MG/2.5ML NEB SCH (22:00)
[2019-01-28] MEDS: ALBUTEROL 2.5 MG/3 ML NEB SOL NEB SCH (22:00)
[2019-01-28] MEDS: ONDANSETRON 4 MG/2 ML VIAL IV PRN (22:48)
[2019-01-28] MEDS: MEPERIDINE HCL 25 MG/0.5 ML IV PRN (22:48)
[2019-01-28] MEDS: LOSARTAN POTASSIUM 50 MG TABLET PO SCH (22:49)
[2019-01-28] MEDS: METOPROLOL TAR 50 MG TAB PO SCH (22:49)
--- NOTE | 2019-01-29 01:28 | HP ---
Date of Admission: 01/28/2019 Chief Complaint: Headache nausea, speech problem, and dizziness. History Of Present Illness: This is an 83-year-old pleasant male patient who has COPD, congestive he art failure, multiple other comorbidities, takes his medications regularly, was doing fine in his nor mal usual state of health until yesterday evening, started to have some headache and dizziness and he checked his blood pressure which was very high, systolic blood pressure was 250, diastolic was aroun d 160 as he reported. Ambulance was called. He was brought into the emergency room. After he was e valuated in the ER, he had some blood work done. CAT scan of the head, CT scan of intracranial arter ies for CT angiogram and there was no evidence of any stroke or acute findings. 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 By the time he came to the ER, his spe ech was back to normal. Upon presentation to the emergency room, systolic blood pressure was 170. A fter he came into ER, he had another set of blood work done, CAT scan of the head which was negative for acute changes. MRI of the brain was negative for stroke and lumbar puncture was done and result is pending. Patient was admitted to the hospital and I evaluated him in the emergency room. His fam jacinta was at bedside with him. Medications: List reviewed. Review of Systems: SEASONAL WAREHOUSE ASSOCIATE: As mentioned above. Respiratory: Chronic dyspnea with activity. Cardiovascular: Some leg edema. Musculoskeletal: Chronic arthritis pain. All other systems reviewed and negative. Allergies: PENICILLIN, SULFA, AND LEVAQUIN. Family History: Significant for coronary artery disease and Alzheimer disease. Social History: Negative for smoking or alcohol use. Past Surgical History: Significant for TURP, cataract surgery, back surgery, arthroscopic knee surge ry, surgery for lung cancer in 2015. Past Medical History: Significant for hypertension, hyperlipidemia, COPD, lung cancer, anemia, impai red fasting glucose, osteoarthritis at multiple sites, coronary artery disease, hypothyroidism, hypok alemia, osteoporosis, abdominal aortic aneurysm, gastroesophageal reflux disease, depression, chronic diastolic congestive heart failure. Physical Examination: Vital Signs: Blood pressure 170/67, pulse 71, respiratory rate 19, temperature 98.3, pulse ox 97%. General: Awake, alert, oriented, not in distress. HEENT: Head atraumatic, normocephalic. Conjunctivae nonerythematous. Sclerae white. Mouth, no thr ush or edema noted. Ears/Nose, no mass, lesion, discharge noted. Neck: Supple. No JVD, lymph nodes, bruit, thyromegaly noted. Lungs: Bilateral good equal air entry. Clear to auscultation. No rhonchi. No rales. Heart: Normal heart sounds, no murmur or gallop. Abdomen: Soft, bowel sounds normal. No guarding, rigidity, tenderness, mass, hepatosplenomegaly, dis tention, or bruit noted. Extremities: No leg edema. No calf tenderness. Skin: No rash, ulcer, cellulitis. Lymphatics: No lymph node enlargement in neck, supraclavicular, infraclavicular region. Neuro: No focal neurological deficit. Chest: Unremarkable. External Genitalia: Deferred. Rectal: Deferred. Laboratory Data: Last night when he came into emergency room first time, white count 13.3, hemoglobi n 12.9, platelets 234. Sodium 128, potassium 4.2, chloride 94, bicarb 28, BUN 24, creatinine 1.10. Procalcitonin less than 0.035. CAT scan of the head from last month shows no acute intracranial changes. CT angiogram of intracrani al arteries was negative for any acute changes. No evidence of any occlusion, aneurysm. CT angiogra m of neck was reported as no evidence of any occlusion. Mild stenosis of internal carotid artery was reported. Today when he came into the emergency room for the second time, MRI of the brain was done which showed no evidence of any acute abnormality. EKG, normal sinus rhythm, premature atrial compl ex, left axis deviation. Chest x-ray shows mild CHF pattern. CAT scan of the head per stroke protoc ol was negative for any acute intracranial changes. Today white count 12.3, hemoglobin 12.4, platele ts 225. Sodium 129, potassium 4.2, chloride 93, bicarb 32, BUN 18, creatinine 1.28, glucose 80. CSF shows glucose 60, total protein 5. Rest of the results on CSF are pending. Impression: 1.Transient ischemic attack. 2.Hypertension, uncontrolled. 3.Chronic obstructive pulmonary disease. 4.Chronic diastolic congestive heart failure. 5.Hyponatremia. 6.Coronary artery disease. 7.Hyperlipidemia. 8.Lung cancer. 9.Impaired fasting glucose. 10.Osteoarthritis, multiple sites. 11.Hypothyroidism. 12.Abdominal aortic aneurysm. Plan: Admit patient to hospital for further evaluation of this problem. Patient is appropriate for inpatient and is expected to spend 2 midnights in the hospital. We will go ahead and continue home m edications per order. Consult neurologist, Dr. Casas. Patient does not take aspirin on a regular daily basis and may be 1 or 2 times a month he will end up taking aspirin, otherwise he does not chito e it regularly. We will have to start him on appropriate anti-platelet therapy, follow up with neuro logist to get further recommendation. I will order renal artery Doppler to be done tomorrow to rule out any underlying renal artery stenosis and we will monitor blood pressure and adjust antihypertensi ve medication as it becomes necessary. We will have fasting lipid profile done in the morning and I will see him tomorrow for followup. Advanced directives discussed with the patient in the emergency room in presence of his family member and as per patient's wishes, we will write DNR order in the chart. WAGNER/MODL Voice ID: [id number]
[2019-01-29] MEDS: ONDANSETRON 4 MG/2 ML VIAL IV PRN ×3 (02:58→09:57)
[2019-01-29] MEDS: MEPERIDINE HCL 25 MG/0.5 ML IV PRN ×5 (02:58→23:03)
[2019-01-29 03:45] VITALS: BMI 29.2
[2019-01-29] MEDS: ALBUTEROL 2.5 MG/3 ML NEB SOL NEB SCH ×6 (04:00→20:00)
[2019-01-29] MEDS: IPRATROPIUM BROM 0.5MG/2.5ML NEB SCH ×6 (04:00→20:00)
[2019-01-29] MEDS: HYDROCODONE/APAP 10/325 TAB PO PRN ×4 (04:36→19:43)
[2019-01-29] MEDS: LEVOTHYROXINE SOD 0.1 MG TAB PO SCH (06:33)
[2019-01-29 06:35] LABS: CKMB Creatine Kinase MB 1.2 ng/mL (0.3-3.6); Creatine Phosphokinase 26 U/L (39-308); HDL Cholesterol 76 mg/dL (40-60); LDL Cholesterol, Calculated 45 (<130); Troponin I < 0.02 ng/mL (0.0-0.045)
[2019-01-29] MEDS ORDERED: ALBUTEROL INHALER 60 PUFF/8 GM IH PRN (07:32)
[2019-01-29] MEDS: CYCLOBENZAPRINE 10 MG TAB PO SCH (09:00)
[2019-01-29] MEDS ORDERED: predniSONE 5 MG TAB PO SCH (09:00)
[2019-01-29] MEDS ORDERED: DULOXETINE 20 MG CAP PO SCH (09:00)
[2019-01-29] MEDS: MULTIVIT W/ MINERAL TAB PO SCH ×2 (09:00→09:59)
[2019-01-29] MEDS ORDERED: ALBUTEROL INHALER 60 PUFF/8 GM IH SCH (09:00)
[2019-01-29] MEDS: LIDOCAINE 4% PATCH TD SCH (09:00)
[2019-01-29] MEDS: LOSARTAN POTASSIUM 50 MG TABLET PO SCH ×2 (09:04→20:40)
[2019-01-29] MEDS: METOPROLOL TAR 50 MG TAB PO SCH ×2 (09:04→20:39)
--- NOTE | 2019-01-29 09:07 | RAD REPORT ---
EXAM DESCRIPTION: US - Abdomen Pelvis Scan US - 01/29/2019 8:16 am CLINICAL HISTORY: Abnormal renal function, hypertension COMPARISON: None. TECHNIQUE: Sonographic evaluation of the kidneys was performed with measurements obtained and gross anatomic assessment performed. Doppler evaluation of the renal arteries, interlobar arteries and aort a performed. Waveforms and velocities were recorded. The renal artery ratios in resistive index jaime ues were calculated. FINDINGS: Right kidney measures 11.0 x 6.0 x 4.8 cm. Left kidney is 10.3 x 5.1 x 4.7 cm. Cortical th inning is present. Cortical echogenicity is slightly increased. This could indicate underlying medica l renal disease. No hydronephrosis or suspicious mass of either kidney. Arcuate artery peak systolic and end-diastolic velocity values are normal range and symmetric. Resist mary index values are 0.80 for both the right and left kidneys. No suspicious waveform pattern or worrisome velocity value of either kidney. Proximal right renal art adeline was poorly visualized. Right renal artery resistive index values range from 0.79 - 0.86 in value. Left renal artery resistive index values range from 0.83-0.84 in value. Renal artery ratios fall within normal range measuring 1.45 on the right and 1.79 on the left. IMPRESSION: No findings to suspect renal artery stenosis. Renal artery ratios are well within normal range. No suspicious vascular finding. No hydronephrosis or suspicious mass of either kidney.
[2019-01-29] MEDS: CLOPIDOGREL 75 MG TABLET PO SCH (09:59)
[2019-01-29] MEDS: predniSONE 10 MG TAB PO SCH (09:59)
[2019-01-29] MEDS ORDERED: PROMETHAZINE 25 MG/ML VIAL IV PRN (12:33)
[2019-01-29] MEDS: [UNRECOGNIZED DRUG - OTHER] PO SCH (15:16)
[2019-01-29] MEDS: POTASSIUM 99 MG PO SCH (15:16)
--- NOTE | 2019-01-29 16:34 | PN ---
Date of Progress Note: 01/29/2019 Subjective: Patient was seen this morning for followup. No new complaints or problems reported by p floresita except complaining of headache, which is still unchanged from yesterday. Has some nausea and complaining of shortness of breath. Objective: Vital Signs: Reviewed. HEENT: Unremarkable. Lungs: Some minimum basal rales present. Heart: Sounds normal. Abdomen: Soft. Bowel sounds normal. No guarding, rigidity, tenderness, or distention. Extremities: No leg edema. Laboratory Data: Troponin less than 0.02. Total cholesterol 141, LDL 45, HDL 76, triglyceride 102. CSF bacterial antigen negative and spinal fluid had shown 0 WBC, 1 RBC. Impression: 1.Transient ischemic attack. 2.Hypertension, uncontrolled. 3.Chronic obstructive pulmonary disease. 4.Congestive heart failure, chronic, diastolic with acute exacerbation. Plan: We will go ahead and continue current medications. Patient will have renal artery Doppler. W chuck will follow up on that. Consult Dr. Gillis from Pulmonary. Patient unfortunately has congestive heart failure as well as COPD problems, both affecting his shortness of breath problem, and I did ta lk to him that he needs to start thinking about possibility of hospice care as probably there is not a lot more we can do on top of what we are doing right now and what we have done so far, and we will see if Dr. Gillis has any other suggestions to help improve his breathing. Consult Physical Therap y to help ambulate the patient. There is no sign of any meningitis. CSF result is normal. Will fol low up with Dr. Casas regarding headache. He takes his Plavix daily at home and we will continue that while in the hospital. WAGNER/MODL Voice ID: [id number] Report ID: [id number]
--- NOTE | 2019-01-29 23:10 | CON ---
Reason For Consultation: Consultation called by Dr. Gomez because of possible transient ischemic silke ck. History Of Present Illness: Mr. Morales is an 83-year-old right-handed patient who is seen by the n eurologist, Dr. Rick. He said approximately 1-1/2 to 2 years ago was his last visit with Dr. Rick. He was in his usual state of health until 2 days ago when he had a sudden episode of slurred speech , disorientation, and subsequently developed a headache. Those symptoms seemed to resolve within abo ut 10 minutes, but he had a similar episode later and was noted to have very elevated blood pressures , reportedly systolics to 260, diastolic around 150. He was brought to [facility] where his head CT scan showed no acute ischemic or hemorrhagic change. A brain MRI also ruled out a stroke. It should be noted that his blood pressures at [facility] were initially up to 193/93, and t he patient is also reporting abnormal blood pressure. In addition, his workup revealed an electrocar diogram that showed sinus rhythm with premature atrial complexes. It should be noted that the patien t also said at one of the events, he had pounding elevated heart rate, but did not have brenda chest p ain. Past Medical History: Abdominal aortic aneurysm, reportedly around 5 cm, followed in [place]; chroni c lower back pain; chronic obstructive pulmonary disease; degenerative disk disease, lower back; lung cancer; and transient ischemic attack. Past Surgical History: Coronary artery bypass grafting and cholecystectomy. Allergies: LEVAQUIN, PENICILLIN, AND SULFA DRUGS. Family History: Noncontributory. Social History: No alcohol, tobacco, or IV drug use. The patient has a and 2 daughters who are at bedside. Review of Systems: Aside from mentioned above, no recent fevers, chills, nausea, vomiting, myalgias, arthralgias, headac he, weight change, rash, psychiatric complaints, again, other than stated above. Physical Examination: Vital Signs: Blood pressure 120/57, pulse 61, respiratory rate 18, temperature 98.4, oxygen saturati on 99% to 100%. He did have 2 L of oxygen by nasal cannula. Weight 187 pounds, height 5 feet 7 inch es. General: Mr. Morales is resting comfortably in a chair beside the bed. He is in no acute distress. HEENT: He is normocephalic, atraumatic. Sclerae anicteric. Oropharynx pink and moist. Neck: Supple. Chest: Clear. Heart: Regular. Extremities: Show no edema, cyanosis, or significant findings there. Neurological: Alert and oriented to situation, place, and person. He has normal labial, lingual, an d guttural sounds. He has no cranial nerve deficits on 2 through 12 motor examination. He has no fo dayna weakness in the upper and lower extremities. He has some mild difficulty with coordination in th e lower extremities, otherwise coordination intact to upper extremities. Reflexes are symmetric in t he upper and lower extremities. Gait, he did ambulate about 50 feet earlier today with physical biochemist apy. Laboratory Studies: White blood cell count 12.3, hemoglobin 12.4, hematocrit 36.6, platelets 225. I NR 0.86. His chemistry shows slightly low sodium of 129, potassium normal at 4.2, chloride slightly low at 93, carbon dioxide 32, BUN 18, creatinine 1.28, glucose 84, calcium 9, HDL cholesterol is elev ated, which is a good number of 76, LDL cholesterol of 45, total cholesterol of 141. His cholesterol HDL ratio is 1.86. His urinalysis is negative. Patient did have a lumbar puncture in the emergency room for the consideration of a potential central nervous system infection, although this presentati on did not quite support that, but the study was normal. His glucose of 60. CSF protein was slightl y low at around 5, unclear why it is low, but his white blood cell count was 1 and red blood cells 1. All cultures from CSF came back negative for the screen, actually the bacterial antigen screen [facility] is group B strep, strep pneumoniae, Haemophilus influenzae, and meningitis, all have com e back negative. There are some other pending CSF studies. However, no organisms were seen on stain ing. Assessment: Mr. 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 Elevation has resolved. His neurologic examination shows no focal deficits. No evidence of any significant systemic infection and his actual chest x-ray also shows mi ld CHF pattern but not a pneumonia. Plan: The patient should continue Plavix 75 mg daily in addition to his other medications as per Dr. Gomez. He should have blood pressure managed in normal range with systolic perhaps less than 130. O therwise, once discharged, he may follow up in Dr. Casas's clinic in 1 month. REMINGTON Voice ID: [id number] Report ID: [id number]
[2019-01-30] MEDS: HYDROCODONE/APAP 10/325 TAB PO PRN ×2 (01:57→08:11)
[2019-01-30] MEDS: IPRATROPIUM BROM 0.5MG/2.5ML NEB SCH ×3 (03:19→08:00)
[2019-01-30] MEDS: ALBUTEROL 2.5 MG/3 ML NEB SOL NEB SCH ×3 (03:19→08:00)
[2019-01-30] MEDS: MEPERIDINE HCL 25 MG/0.5 ML IV PRN ×2 (05:43→10:43)
[2019-01-30] MEDS: LEVOTHYROXINE SOD 0.1 MG TAB PO SCH (05:47)
[2019-01-30 06:21] LABS: Absolute Lymphocytes (CBC) 2.1 K/uL (0.7-4.9); Basophils % 0.7 % (0-1.3); Hematocrit 35.9 % (39.6-49.0); Lymphocytes % 22.9 % (15.3-44.8); MPV 8.7 fL (7.6-11.3); RBC Red Blood Cell Count 3.91 M/uL (4.33-5.43)
[2019-01-30 06:32] LABS: Magnesium 2.4 mg/dL (1.8-2.4)
[2019-01-30] MEDS: CLOPIDOGREL 75 MG TABLET PO SCH (08:14)
[2019-01-30] MEDS: predniSONE 10 MG TAB PO SCH (08:14)
[2019-01-30 08:43] VITALS: O2SAT 99
[2019-01-30] MEDS: [UNRECOGNIZED DRUG - OTHER] PO SCH (09:00)
[2019-01-30] MEDS: LIDOCAINE 4% PATCH TD SCH (09:00)
[2019-01-30] MEDS: CYCLOBENZAPRINE 10 MG TAB PO SCH (09:00)
[2019-01-30] MEDS: POTASSIUM 99 MG PO SCH (09:00)
[2019-01-30] MEDS ORDERED: DULOXETINE 30 MG CAP PO SCH (09:00)
[2019-01-30] MEDS: MULTIVIT W/ MINERAL TAB PO SCH (09:00)
[2019-01-30] MEDS: METOPROLOL TAR 50 MG TAB PO SCH (09:42)
[2019-01-30] MEDS: LOSARTAN POTASSIUM 50 MG TABLET PO SCH (09:42)
[2019-01-30 09:48] VITALS: BP 134/62
[2019-01-30 10:19] VITALS: TEMP 98.3
--- NOTE | 2019-01-30 15:13 | P.PN ---
Subjective Date of Service: 01/30/19 Chief Complaint: Hypertension and headache his shortness of breath Subjective: Improving (Patient is 83 years of age with a history of diastolic dysfunction and COPD admitted with high blood pressure and had a headache workup did not show any evidence of stroke he shortness of breath has improved since is been taking the trilogy) Review of Systems General: Weakness Respiratory: Shortness of Breath Physical Examination - Vital Signs Temperature: 98.3 F Blood Pressure: 134/62 Pulse: 62 Respirations: 16 Pulse Ox (%): 97 - Physical Exam General: Alert, Oriented x3 Neck: Supple, No Thyromegaly Respiratory: Diminished Cardiovascular: No edema, Regular rate/rhythm - Studies Microbiology Data (last 24 hrs): 01/28/19 18:00 Cerebral Spinal Fluid Gram Stain - Final Assessment & Plan - Problems (Diagnosis) (1) COPD (chronic obstructive pulmonary disease) Status: Acute Plan: Patient has COPD he is breathing has improved since I started him on a trilogy as an outpatient patient's vital signs in oxygenation stable there is no evidence of stroke patient to continue taking is trilogy I will call in another prescription in for trilogy reviewed Qualifiers: COPD type: unspecified COPD Qualified Code(s): J44.9 - Chronic obstructive pulmonary disease, unspecified
--- NOTE | 2019-01-31 04:39 | DS ---
Date of Discharge: 01/30/2019 Disposition: Discharged to go home. Physical Examination: HEENT: Unremarkable. Lungs: Clear to auscultation. Heart: Debbie sounds. Abdomen: Soft, no guarding, rigidity or tenderness. Extremities: No edema. Laboratory Data: Sodium today 130, potassium 4, chloride 94, bicarb 29, BUN 10 , creatinine 0.90, cholesterol 45, HDL 76, triglyceride 102, total cholesterol 141. Discharge Medications And Instructions: 1. Continue all prior home medications except change losartan to 50 mg, take 1 tablet by mouth 2 times a day. 2. Followup at my office on 02/04/2019. Hospital Course: An 83-year-old male patient admitted to the hospital with headache, nausea, speech problem, and dizziness. Please see dictated H and P for more information. The patient's blood pressure had gone up significantly high, came into emergency room with systolic blood pressure of 250. After he was evaluated and treated in the emergency room, he was discharged to go home, within few hours he came back to the emergency room with similar complaints and also this time with some trouble with his speech. He presented to the emergency room first time. He had 2 episodes of difficulty with his speech and it resolved spontaneously and has not had any recurrence of that. After he was evaluated in the ER this time, he had MRI of brain, which was negative for any acute stroke. He had spinal tap done and his CSF showed 1 WBC, 0 RBC, also CSF was normal. CSF bacterial antigen negative. He was seen in consultation by neurologist, Dr. Casas and Dr. Casas did not recommend any other intervention, except advised him to get better control on his blood pressure. We have increased dose of his losartan 50 mg from once a day to 2 times a day. Patient takes aspirin rarely, but he does take his Plavix on a regular basis as prescribed, so there was no need for any other extra or additional anti- platelet therapy. Patient has chronic shortness of breath due to underlying COPD and chronic diastolic congestive heart failure. Dr. Gillis from Pulmonary was consulted to evaluate him today. He has ongoing problem with his shortness of breath and I have started discussion with him in presence of his family member regarding hospice care and I did talk to Dr. Gillis and he is in agreement with that to consider whenever physician decides and the patient and family will think about it. Names of local hospice agencies were given to him and he will come see me next week on and whenever patient makes the decision to go on hospice, we will assist him with all the arrangements. His hospice diagnosis will be COPD as well as congestive heart failure. Final Diagnoses: 1. Transient ischemic attack. 2. Hypertension, uncontrolled. 3. Chronic obstructive pulmonary disease. 4. Chronic diastolic congestive heart failure. 5. Hyponatremia. 6. Coronary artery disease. 7. Hyperlipidemia. 8. Lung cancer. 9. Impaired fasting glucose. 10. Osteoarthritis, multiple sites. 11. Hypothyroidism. 12. Abdominal aortic aneurysm. WAGNER/MODL Voice ID: [id number] Report ID: [id number] MIRANDA
--- OUTSIDE RECORDS SUMMARY | 2019-02-01 04:04 | XMS REPORT ---
:1935 [facility] Address [address] [place] [address] Dr. Walters [address] [place] [address] Care Team Providers Name Role Phone SUKI [...] MDReport Verified Date/Time: 04/28/2017 15:21:39 Reading Location: [place] [address] Angio Body Reading RoomAddendum EndsFINAL REPORT CT [...] time, however, the referring physician is the Automat Car Attendant Resolution Specialist of the [facility] and therefore no recommendation necessary. 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 2. Patent mesenteric and renal arteries. 3. Other findings as described above. 4. An addendum will be dictated regarding the non-vascular findings by the Automat Car Attendant Radiologist. Signed: Marc Pierceeport Verified Date/Time: 04/28/2017 13:31:12 Reading Location: [place] [address] Cardiology MRI -CREATININE 2017-04-28 12:16:00 Test Item Value Reference Range Comments POC-CREATININE (MALLORY) (test 1.0 mg/dL 0.6-1.3 TESTED AT [facility] 6720 [id number]) [facility] [address] POC-EGFR (MALLORY) (test [id number]) 72 mL/min/1.73M2
== END 2019-01-30 12:20 | disposition home health service (06) ==
LOC: ER 14:05 → OBSVTOIN 19:34 → INTOOBSV 19:34 → ERHOLD 19:34 → 2ND 19:55 → OBSVTOIN 21:58 → INTOOBSV 21:58
PROVIDERS: ADMIT Internal Medicine; ATTEND Internal Medicine
DX: G45.9 Transient cerebral ischemic attack, unspecified (principal); R51 Headache; J44.9 Chronic obstructive pulmonary disease, unspecified; I11.0 Hypertensive heart disease with heart failure; I50.33 Acute on chronic diastolic (congestive) heart failure; E78.5 Hyperlipidemia, unspecified; M15.9 Polyosteoarthritis, unspecified; I25.10 Atherosclerotic heart disease of native coronary artery without angina pectoris; E03.9 Hypothyroidism, unspecified; E87.6 Hypokalemia; M81.0 Age-related osteoporosis without current pathological fracture; I71.4 Abdominal aortic aneurysm, without rupture; K21.9 Gastro-esophageal reflux disease without esophagitis; E87.1 Hypo-osmolality and hyponatremia; C34.90 Malignant neoplasm of unspecified part of unspecified bronchus or lung; R73.01 Impaired fasting glucose
CPT/HCPCS: 36415; 62270; 70450; 70496; 70498; 70551; 71045; 80048; 80061; 81003; 82550; 82553; 82945; 82947; 83735; 84145; 84157; 84484; 85025; 85610; 85730; 86403; 87040; 87070; 87081; 87804; 89050; 93005; 93975; 96374; 96375; 97112; 97116; 97161; 97530; 99285; G0378; J2175; J2270; J2405; J2550; J7030; J7040; J7512; Q9967

== ENCOUNTER 2019-06-28 11:42 | Inpatient (IN) | payer OTHER ==
--- OUTSIDE RECORDS SUMMARY | 2019-06-28 11:44 | XMS REPORT ---
:1935 [facility] Address [address] [place] [address] Dr. Walters [address] [place] [id number] Care Team Providers Name Role Phone SUKI [...] MDReport Verified Date/Time: 04/28/2017 15:21:39 Reading Location: [place] [address] Angio Body Reading RoomAddendum EndsFINAL REPORT CT [...] time, however, the referring physician is the Police Chief Deputy Copper Flotation Operator of the [facility] and therefore no recommendation necessary. 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 2. Patent mesenteric and renal arteries. 3. Other findings as described above. 4. An addendum will be dictated regarding the non-vascular findings by the Police Chief Deputy Radiologist. Signed: Marc Pierceeport Verified Date/Time: 04/28/2017 13:31:12 Reading Location: [place] [address] Cardiology MRI -CREATININE 2017-04-28 12:16:00 Test Item Value Reference Range Comments POC-CREATININE (MALLORY) (test 1.0 mg/dL 0.6-1.[address] [facility] 6720 [id number]) [facility] [address] POC-EGFR (MALLORY) (test [id number]=5760) 72 mL/min/1.73M2
[2019-06-28 12:58] LABS: Urine Blood 2+ (NEG); Urine Glucose NEGATIVE (NEG); Urine Protein 2+ (NEG); Urine Specific Gravity 1.015 (1.005-1.030); Urine pH 8.5 (5.0-7.0)
[2019-06-28 12:59] LABS: Absolute Lymphocytes (CBC) 0.9 K/uL (0.7-4.9); Basophils % 0.4 % (0-1.3); Hematocrit 30.9 % (39.6-49.0); Lymphocytes % 5.5 % (15.3-44.8); MPV 10.2 fL (7.6-11.3)
[2019-06-28 13:04] LABS: Protime INR 1.13
[2019-06-28] MEDS ORDERED: NA CHLORIDE 0.9% 1,000 ML ONE ×3 (13:09→21:31)
[2019-06-28] MEDS ORDERED: NA CHLORIDE 0.9% 500 ML ONE (13:09)
--- NOTE | 2019-06-28 13:16 | RAD REPORT ---
EXAM DESCRIPTION: RAD - Chest Single View - 06/28/2019 1:07 pm CLINICAL HISTORY: SOB COMPARISON: Portable January 2019 TECHNIQUE: AP portable chest image was obtained 06/28/2019 1:07 pm . FINDINGS: Lung volumes are low. Patient has significant chronic interstitial lung disease. Lung pare nchymal pattern is not clearly different. Severity of baseline disease can mask early infiltrates or early edema. Findings are more prominent in the right upper lung field in the left base. These areas can be monitored for developing infiltrate. Mild cardiomegaly is present similar to comparison. Vasculature is prominent. No pneumothorax or lar ge pleural effusion. No acute bony abnormality seen. No acute aortic findings suspected. IMPRESSION: Limited shallow inspiration film shows mild CHF/ volume overload findings. Baseline chronic interstitial lung pattern could mask early infiltrates. Follow-up imaging can be obt ained to monitor the right upper lung field and the lateral left lower lung field.
[2019-06-28 13:19] LABS: Urine Bacteria <20 /HPF (NONE SEEN); Urine Culture Reflex Order NOT NEEDED
[2019-06-28 13:25] LABS: ALT/SGPT 19 U/L (12-78); AST/SGOT 21 U/L (15-37); Alkaline Phosphatase 51 U/L (45-117); Amylase Level 43 U/L (25-115); BUN Blood Urea Nitrogen 27 mg/dL (7-18); Bicarbonate 30 mmol/L (21-32); Bilirubin Direct 0.2 mg/dL (0-0.2); Bilirubin Total 0.6 mg/dL (0.2-1.0); CKMB Creatine Kinase MB 2.4 ng/mL (0.3-3.6); Creatine Phosphokinase 188 U/L (39-308); Glucose Level 99 mg/dL (74-106); Lipase 54 U/L (73-393); Potassium 4.4 mmol/L (3.5-5.1); Protein, Total 5.9 g/dL (6.4-8.2); Sodium Level 133 mmol/L (136-145); Troponin (Emerg Dept Use Only) < 0.02 ng/mL (0.0-0.045)
[2019-06-28] MEDS ORDERED: CEFTRIAXONE 1000 MG/VIAL ONE (13:28)
[2019-06-28] MEDS ORDERED: NS 0.9% VIAL 0 ML ONE (13:30)
[2019-06-28] MEDS ORDERED: LIDOCAINE 1% MPF 5 ML VIAL ONE (13:32)
[2019-06-28] MEDS ORDERED: CEFTRIAXONE/SWI 1gm 1 GM/10 ML SYR ONE (13:33)
[2019-06-28] MEDS ORDERED: FUROSEMIDE 20 MG/ 2ML VIAL ONE (14:39)
[2019-06-28] MEDS ORDERED: PIPER/TAZO/NS 3.375gm 3.375 GM/100 ML BAG ONE (14:39)
--- NOTE | 2019-06-28 14:42 | EDPHYS ---
Physician Documentation [facility] Name: Pedro Morales Age: 84 yrs Sex: Male : 1935 Arrival Date: 06/28/2019 Time: 11:55 Bed 14 Private MD: ED Physician Kishan Groves HPI: 06/27 12:26 This 84 yrs old Male presents to ER via EMS with complaints of shortness of pm1 breath. 12:26 The patient has shortness of breath at rest. Onset: The symptoms/episode began/occurred pm1 yesterday. Duration: The symptoms are continuous, worse than his baseline shortness of breath from COPD. Associated signs and symptoms: Pertinent positives: burning with urination. 4 episodes of vomiting. The patient has been recently seen by a physician: Prescribed antibiotic, cefpodoxime, for UTI and started yesterday. Historical: - Allergies: 14:56 Levaquin; ss 14:56 PENICILLINS; ss 14:56 Sulfa (Sulfonamide Antibiotics); ss - PMHx: 14:56 AAA; Back pain; Degenerative disc disease; COPD; Lung Cancer; TIA; ss - PSHx: 14:56 CABG; Cholecystectomy; ss - Immunization history:: Adult Immunizations up to date, Flu vaccine is up to date. - Social history:: Smoking status: Patient/guardian denies using tobacco, the patient reports quitting approximately 13 years ago. ROS: 12:38 ENT: Negative for injury, pain, and discharge, Neck: Negative for injury, pain, and pm1 swelling, Cardiovascular: Negative for chest pain, palpitations, and edema. 12:38 Abdomen/GI: Negative for abdominal pain, nausea, vomiting, diarrhea, and constipation, Back: Negative for injury and pain. 12:38 MS/Extremity: Negative for injury and deformity, Skin: Negative for injury, rash, and discoloration. 12:38 Neuro: Negative for headache, weakness, numbness, tingling, and seizure. 12:38 Constitutional: Positive for fever, Negative for poor PO intake. 12:38 Respiratory: Positive for cough, shortness of breath, sputum, Negative for wheezing. 12:38 : Positive for burning with urination, Negative for flank pain. Exam: 12:38 Constitutional: This is a well developed, well nourished patient who is awake, alert, pm1 and in no acute distress. Head/Face: Normocephalic, atraumatic. Chest/axilla: Normal chest wall appearance and motion. Nontender with no deformity. No lesions are appreciated. 12:38 Abdomen/GI: Soft, non-tender, with normal bowel sounds. No distension or tympany. No guarding or rebound. No evidence of tenderness throughout. Back: No spinal tenderness. No costovertebral tenderness. Full range of motion. Skin: Warm, dry with normal turgor. Normal color with no rashes, no lesions, and no evidence of cellulitis. 12:38 MS/ Extremity: Pulses equal, no cyanosis. Neurovascular intact. Full, normal range of motion. 12:38 Cardiovascular: Rate: normal, Rhythm: regular, Pulses: no pulse deficits are appreciated, Edema: pedal edema, that is mild. 12:38 Respiratory: the patient does not display signs of respiratory distress, Respirations: normal. 12:38 Neuro: Exam negative for acute changes, Orientation: is normal, Mentation: is normal, Motor: is normal, moves all fours. Vital Signs: 11:40 BP 108 / ???; Resp 20; Temp 100; Pulse Ox 94% on 4 lpm NC; Weight 86.18 kg; ah 11:55 BP 92 / 39; Pulse 82; Resp 27; Temp 100.2; Pulse Ox 99% on 4 lpm NC; ah 12:30 BP 81 / 45; Pulse 79; Resp 17; Pulse Ox 96% on 4 lpm NC; ah 13:00 Weight 86.18 kg; ph 13:00 BP 93 / 38; Pulse 77; Resp 18; Pulse Ox 96% on 4 lpm NC; ah 13:30 BP 68 / 44; Pulse 75; Resp 20; Pulse Ox 99% on 4 lpm NC; ah 14:00 BP 94 / 44; Pulse 70; Resp 18; Pulse Ox 100% ; ah 14:30 BP 117 / 54; Pulse 70; Resp 18; Temp 98.4; Pulse Ox 100% 4 lpm ; ah 15:00 BP 98 / 49; Pulse 69; Resp 19; Pulse Ox 98% 4 lpm ; ah 15:30 BP 94 / 47; Pulse 68; Resp 19; Pulse Ox 100% ; ah 16:00 BP 98 / 33; Pulse 70; Resp 19; Pulse Ox 100% 4 lpm ; ah 16:30 BP 109 / 51; Pulse 70; Resp 22; Pulse Ox 97% on 4 lpm NC; ah 17:00 BP 119 / 55; Pulse 83; Resp 29; Pulse Ox 94% on 4 lpm NC; ah 17:30 BP 120 / 50; Pulse 76; Resp 25; Temp 98.8; Pulse Ox 95% on 4 lpm NC; ah 18:00 BP 105 / 64; Pulse 82; Resp 27; Pulse Ox 100% ; ah 18:20 BP 93 / 41; Pulse 73; Resp 21; Pulse Ox 100% on 4 lpm NC; ah 19:00 BP 82 / 69; Pulse 91; Resp 32; Pulse Ox 91% ; ah 19:36 BP 114 / 57; Pulse 81; Resp 22; Temp 98.4; Pulse Ox 100% ; ah 20:00 BP 122 / 43; Pulse 91; Resp 23; Pulse Ox 94% 4 lpm ; ah 18:20 Pt lying in bed on right side with bp cuff on left arm. MDM: 12:03 Patient medically screened. [facility] 14:30 Physician consultation: Kishan Groves MD Recommended Zosyn and Vancomycin for pm1 treatment of UTI, pneumonia. 14:30 Physician consultation: Kishan Groves MD Lasix 20 mg IV based on chest x-ray results. pm1 14:40 Data reviewed: vital signs. Data interpreted: Pulse oximetry: on 2L(s) per nasal pm1 canula, is 100 %. Interpretation: normal. 14:40 Counseling: I had a detailed discussion with the patient and/or guardian regarding: the pm1 historical points, exam findings, and any diagnostic results supporting the discharge/admit diagnosis, lab results, radiology results, the need for further work-up and treatment in the hospital. 15:55 Physician consultation: Geoff Gilbert MD He is the patient's hospice physician. If he is pm1 admitted he goes back to his PCP. 17:59 Physician consultation: A Patricia LARA was called at 17:59, was contacted at 17:59, pm1 regarding admission, patient's condition, and will see patient in ED. 18:16 Physician consultation: A Patricia LARA in the emergency department to see patient at 18:10. pm1 06/27 12:20 Order name: Urine Culture pm1 06/27 12:20 Order name: Amylase, Serum; Complete Time: 13:28 pm1 06/27 12:20 Order name: Basic Metabolic Panel; Complete Time: 13:28 pm06/27 12:20 Order name: Blood Culture Adult (2) pm1 06/27 12:20 Order name: CBC with Diff; Complete Time: 15:01 pm06/27 12:20 Order name: Ckmb; Complete Time: 13:28 pm06/27 12:20 Order name: CPK; Complete Time: 13:28 pm06/27 12:20 Order name: Lactate; Complete Time: 14:01 pm06/27 12:20 Order name: LFT's; Complete Time: 13:28 pm06/27 12:20 Order name: Lipase; Complete Time: 13:28 pm06/27 12:20 Order name: Procalcitonin; Complete Time: 14:01 pm06/27 12:20 Order name: Protime (+inr); Complete Time: 13:18 pm06/27 12:20 Order name: Ptt, Activated; Complete Time: 13:18 pm06/27 12:20 Order name: Troponin (emerg Dept Use Only); Complete Time: 13:28 pm06/27 12:20 Order name: Urine Microscopic Only; Complete Time: 13:20 pm1 06/27 12:20 Order name: Chest Single View XRAY; Complete Time: 13:18 pm1 06/27 12:20 Order name: COVID-19; Complete Time: 16:06 pm06/27 12:23 Order name: Ferritin; Complete Time: 14:01 pm06/27 12:23 Order name: Flu; Complete Time: 13:20 pm1 06/27 12:23 Order name: Strep; Complete Time: 13:19 pm06/27 12:50 Order name: Urine Dipstick--Ancillary (enter results); Complete Time: 13:18 bd 06/27 13:20 Order name: Throat Culture EDMS 06/27 14:44 Order name: CBC Smear Scan; Complete Time: 15:01 EDMS 06/27 18:11 Order name: Basic Metabolic Panel EDMS 06/27 18:11 Order name: Basic Metabolic Panel EDMS 06/27 18:11 Order name: CBC with Automated Diff EDMS 06/27 18:11 Order name: CBC with Automated Diff EDMS 06/27 12:20 Order name: Accucheck pm1 06/27 12:20 Order name: Cardiac monitoring; Complete Time: 13:00 pm06/27 12:20 Order name: EKG - Nurse/Tech; Complete Time: 13:00 pm06/27 12:20 Order name: IV Saline Lock - Large Bore; Complete Time: 13:00 pm06/27 12:20 Order name: Labs collected and sent; Complete Time: 13:00 pm06/27 12:20 Order name: O2 Per Protocol; Complete Time: 13:00 pm06/27 12:20 Order name: O2 Sat Monitoring; Complete Time: 13:00 pm06/27 12:20 Order name: Urine Dipstick-Ancillary (obtain specimen); Complete Time: 13:00 pm06/27 12:23 Order name: Droplet/Contact Precautions; Complete Time: 13:00 pm06/27 18:10 Order name: CONS Pharmacy Consult [facility] 06/27 18:11 Order name: CONS Pharmacy Consult [facility] 06/27 18:11 Order name: Regular EDMS Administered Medications: 13:10 Drug: NS 0.9% (30 ml/kg) 30 ml/kg Route: IV; Rate: bolus; Site: right wrist; ah 13:30 Drug: Rocephin 1 grams Route: IV; Rate: calculated rate; Site: left antecubital; ah 14:44 Drug: Lasix 20 mg Route: IVP; Site: right wrist; ah 15:45 Follow up: Response: No adverse reaction ah 14:45 Drug: Zosyn 3.375 grams Route: IVPB; Infused Over: 60 mins; Site: right wrist; ah 15:40 Drug: vancoMYCIN 1 grams Route: IVPB; Infused Over: 2 hrs; Site: right wrist; ah 16:15 Drug: NS 0.9% 500 ml Route: IV; Rate: bolus; Site: right wrist; ah 17:15 Follow up: Response: No adverse reaction; IV Status: Completed infusion ah 16:44 Drug: NS 0.9% 1000 ml Route: IV; Rate: 125 ml/hr; Site: right wrist; ah 17:15 Drug: Ativan 0.25 mg Route: IVP; Site: right wrist; ah 18:15 Follow up: Response: No adverse reaction; Anxiety decreased ah 19:30 Drug: fentaNYL (PF) 25 mcg Route: IVP; Site: right wrist; ah 20:30 Follow up: Response: No adverse reaction; RASS: Alert and Calm (0) 19:30 Drug: Zofran (Ondansetron) 4 mg Route: IVP; Site: right wrist; ah 20:30 Follow up: Response: No adverse reaction; Nausea is decreased 19:30 Drug: Ativan 0.25 mg Route: IVP; Site: right wrist; ah 20:30 Follow up: Response: No adverse reaction; Anxiety decreased Disposition: 06/28 07:38 Co-signature as Attending Physician, Kishan Groves MD I agree with the assessment and [facility] plan of care. Disposition: 06/28/19 14:42 Hospitalization ordered by Marcia Gomez for Inpatient Admission. Preliminary diagnosis are Urinary tract infection, site not specified, Pneumonia, unspecified organism, Hypotension. - Bed requested for Telemetry/MedSurg (Inpatient). - Status is Inpatient Admission. sg - Condition is Fair. - Problem is new. - Symptoms have improved. Signatures: Dispatcher [employer] EDMS Marlene Greenberg Jayant Lopez, KAYLYN PATIÑO sg Kishan Groves MD MD cha Smirch, Shelby, RN RN Debra Gonzalez RN RN Jc Cooper NP ENGINEERING [employer]LES pm1 Tika Higuera RN RN Corrections: (The following items were deleted from the chart) 06/27 13:48 13:46 Labs - recollect needed ordered. bd 15:57 14:42 Hospitalization Ordered by Geoff Gilbert MD for Inpatient Admission. Preliminary pm1 diagnosis is Urinary tract infection, site not specifiedPneumonia, unspecified organism. Bed requested for Telemetry/MedSurg (Inpatient). Status is Inpatient Admission. Condition is Fair. Problem is new. Symptoms have improved. pm1 18:33 15:57 06/28/2019 14:42 Hospitalization Ordered by A Particia LARA for Inpatient Admission. pm1 Preliminary diagnosis is Urinary tract infection, site not specifiedPneumonia, unspecified organism. Bed requested for Telemetry/MedSurg (Inpatient). Status is Inpatient Admission. Condition is Fair. Problem is new. Symptoms have improved. pm1 19:01 18:33 06/28/2019 14:42 Hospitalization Ordered by Marcia Gomez MD for Inpatient Admission. ss Preliminary diagnosis is Urinary tract infection, site not specifiedPneumonia, unspecified organism; Hypotension. Bed requested for Telemetry/MedSurg (Inpatient). Status is Inpatient Admission. Condition is Fair. Problem is new. Symptoms have improved. pm1 19:58 19:01 06/28/2019 14:42 Hospitalization Ordered by A Patricia LARA for Inpatient Admission. cg Preliminary diagnosis is Urinary tract infection, site not specifiedPneumonia, unspecified organism; Hypotension. Bed requested for Telemetry/MedSurg (Inpatient). Status is Inpatient Admission. Condition is Fair. Problem is new. Symptoms have improved. ss 21:04 19:58 06/28/2019 14:42 Hospitalization Ordered by A Patricia LARA for Inpatient Admission. sg Preliminary diagnosis is Urinary tract infection, site not specifiedPneumonia, unspecified organism; Hypotension. Bed requested for Telemetry/MedSurg (Inpatient). Status is Inpatient Admission. Condition is Fair. Problem is new. Symptoms have improved. cg
--- NOTE | 2019-06-28 14:42 | ER ---
Nurse's Notes [facility] Name: Pedro Morales Age: 84 yrs Sex: Male : 1935 Arrival Date: 06/28/2019 Time: 11:55 Bed 14 Private MD: Diagnosis: Pneumonia, unspecified organism;Urinary tract infection, site not specified;Hypotension Presentation: 06/27 11:40 Chief complaint: EMS states: Shortness of breath and fever since yesterday. They state ah he was started on ABX recently but are unsure what it is, something for his urine. Per his , he has been lethargic. He has vomited x4 today. Coronavirus screen: Patient reports a cough. Patient reports shortness of breath or difficulty breathing. Patient reports a measured and/or subjective temperature greater than 100.4F. Patient denies travel on a cruise ship or to a country the [facility] currently lists as an affected area. Patient denies contact with known and/or suspected case of COVID-19. Infection Prevention Nurse has been notified of patient in isolation for probable COVID-19. Ebola Screen: No symptoms or risks identified at this time. Initial Sepsis Screen: Does the patient meet any 2 criteria? Temp <36.0*C (96.8*F)) or > 38.3*C (100.9*F). Systolic BP < 90 mmHg. Yes Does the patient have a suspected source of infection? Yes: Productive cough/pneumonia Dysuria/Frequency/Urgency/UTI. Risk Assessment: Do you want to hurt yourself or someone else? Patient reports no desire to harm self or others. Onset of symptoms was June 27, 2019. Care prior to arrival: Medication(s) given: Normal saline infusion, 400 ml Tylenol, 1000 mg, zofran 4 mg. 11:40 Method Of Arrival: EMS: [facility] 13:52 Acuity: ZACHERY 2 ph Historical: - Allergies: 14:56 Levaquin; ss 14:56 PENICILLINS; ss 14:56 Sulfa (Sulfonamide Antibiotics); ss - PMHx: 14:56 AAA; Back pain; Degenerative disc disease; COPD; Lung Cancer; TIA; ss - PSHx: 14:56 CABG; Cholecystectomy; ss - Immunization history:: Adult Immunizations up to date, Flu vaccine is up to date. - Social history:: Smoking status: Patient/guardian denies using tobacco, the patient reports quitting approximately 13 years ago. Screenin:34 Abuse screen: Denies threats or abuse. Nutritional screening:. Tuberculosis screening: No symptoms or risk factors identified. Fall Risk IV access (20 points). Gait- Weak (10 pts.). Mental Status- Overestimates/Forgets Limitations (15 pts.). Total Macias Fall Scale indicates High Risk Score (45 or more points). Side Rails Up X 2 Placed Close to Nursing Station Frequent Obs/Assessments Occuring As available patient and family educated on Fall Prevention Program and Strategies. Assessment: 12:00 General: Appears ill, Behavior is cooperative, appropriate for age. Neuro: Level of Consciousness is awake, alert, Oriented to person, place, time, situation. Cardiovascular: Denies chest pain, Heart tones S1 S2 present Capillary refill < 3 seconds Rhythm is sinus rhythm with unifocal PVCs. Respiratory: Airway is patent Respiratory effort is even, labored, Respiratory pattern is symmetrical, Breath sounds with wheezes. GI: Bowel sounds present X 4 quads. Abd is soft and non tender Reports nausea, vomiting, Patient currently denies diarrhea. : Urine is dark Reports was started on ABX yesterday for UTI. EENT: No signs and/or symptoms were reported regarding the EENT system. Derm: No signs and/or symptoms reported regarding the dermatologic system. Skin is intact. Musculoskeletal:. 12:00 Pain: Complains of pain in back. 12:52 Reassessment: Nurse in room from [id number] collecting labs, EKG, urine and medications. 13:15 Reassessment: Redrawing blood cultures and lac at this time. Pt tolerated well. ah 14:00 Reassessment: Patient appears in no apparent distress at this time. Pt attempted to use ah the urinal and spilled urine in his bed. Bed change completed at this time. Pt tolerated well. 14:30 Reassessment: Patient appears in no apparent distress at this time. Administered medications at this time. 15:40 Reassessment: Vancomycin brought to nurse by pharmacy and hung at this time. 16:45 Reassessment: Pt spilled urine in bed again. Sheets changed at this time. Pt requesting ah [place] and voiced he was afraid of having withdrawals. Explained that provider is aware and we needed to stabilize his blood pressure first. Pt voiced understanding. 17:10 Reassessment: Pt restless at this time. Jerking movements noted. Pt alert and awake and ah able to speak. Provider notified and came in room as well. Order received for Ativan 0.25mg and administered IVP. Pt repositioned in bed. 18:00 Reassessment: Awaiting on bed assignment. 19:15 Reassessment: Pt becoming restless at this time and requesting more ativan. Spoke with Dr Groves and received orders for Ativan, fentanyl, and zofran. Medications administered accordingly. Explained to Pt that he would go upstairs soon and be more comfortable. Pt voiced understanding. 19:42 Reassessment: Attempted to call report to 2nd floor receiving nurse. 19:50 Reassessment: Report given to Grace on 2nd floor. 20:00 Reassessment: Received call that pt would be assisgned to a different room due to being tested for Covid today. Awaiting room assignment. 20:10 Reassessment: Report called to receiving nurse on 4th floor. 20:35 Reassessment: Pt taken up to 4th floor. Vital Signs: 11:40 BP 108 / ???; Resp 20; Temp 100; Pulse Ox 94% on 4 lpm NC; Weight 86.18 kg; 11:55 BP 92 / 39; Pulse 82; Resp 27; Temp 100.2; Pulse Ox 99% on 4 lpm NC; 12:30 BP 81 / 45; Pulse 79; Resp 17; Pulse Ox 96% on 4 lpm NC; 13:00 Weight 86.18 kg; ph 13:00 BP 93 / 38; Pulse 77; Resp 18; Pulse Ox 96% on 4 lpm NC; 13:30 BP 68 / 44; Pulse 75; Resp 20; Pulse Ox 99% on 4 lpm NC; ah 14:00 BP 94 / 44; Pulse 70; Resp 18; Pulse Ox 100% ; 14:30 BP 117 / 54; Pulse 70; Resp 18; Temp 98.4; Pulse Ox 100% 4 lpm ; 15:00 BP 98 / 49; Pulse 69; Resp 19; Pulse Ox 98% 4 lpm ; 15:30 BP 94 / 47; Pulse 68; Resp 19; Pulse Ox 100% ; ah 16:00 BP 98 / 33; Pulse 70; Resp 19; Pulse Ox 100% 4 lpm ; ah 16:30 BP 109 / 51; Pulse 70; Resp 22; Pulse Ox 97% on 4 lpm NC; ah 17:00 BP 119 / 55; Pulse 83; Resp 29; Pulse Ox 94% on 4 lpm NC; ah 17:30 BP 120 / 50; Pulse 76; Resp 25; Temp 98.8; Pulse Ox 95% on 4 lpm NC; ah 18:00 BP 105 / 64; Pulse 82; Resp 27; Pulse Ox 100% ; ah 18:20 BP 93 / 41; Pulse 73; Resp 21; Pulse Ox 100% on 4 lpm NC; ah 19:00 BP 82 / 69; Pulse 91; Resp 32; Pulse Ox 91% ; ah 19:36 BP 114 / 57; Pulse 81; Resp 22; Temp 98.4; Pulse Ox 100% ; ah 20:00 BP 122 / 43; Pulse 91; Resp 23; Pulse Ox 94% 4 lpm ; ah 18:20 Pt lying in bed on right side with bp cuff on left arm. ED Course: 11:55 Patient arrived in ED. ph 12:02 Jc Cooper NP is PHCP. pm1 12:03 Kishan Groves MD is Attending Physician. pm1 12:15 Inserted saline lock: 20 gauge in left antecubital area, using aseptic technique. ah 12:59 Tika Higuera, RN is Primary Nurse. ah 13:08 Chest Single View XRAY In Process Unspecified. EDMS 13:53 Triage completed. ph 14:20 Throat Culture Sent. ah 14:41 Geoff Gilbert MD is Hospitalizing Provider. pm1 15:35 Arm band placed on left wrist. ah 15:56 Hospitalizing Provider role handed off by Geoff Gilbert MD pm1 15:56 Marcia Gomez MD is Hospitalizing Provider. pm1 16:50 One on one care 4 hours. ah 17:48 Nurse Practitioner and/or Physician Range Technician to see patient. ah 18:03 Consulted physician to see patient. ah 20:31 No provider procedures requiring assistance completed. Patient admitted, IV remains in ah place. intact. 20:31 Patient has correct armband on for positive identification. Placed in gown. Bed in low ah position. Call light in reach. Side rails up X2. Administered Medications: 13:10 Drug: NS 0.9% (30 ml/kg) 30 ml/kg Route: IV; Rate: bolus; Site: right wrist; ah 13:30 Drug: Rocephin 1 grams Route: IV; Rate: calculated rate; Site: left antecubital; ah 14:44 Drug: Lasix 20 mg Route: IVP; Site: right wrist; ah 15:45 Follow up: Response: No adverse reaction ah 14:45 Drug: Zosyn 3.375 grams Route: IVPB; Infused Over: 60 mins; Site: right wrist; ah 15:40 Drug: vancoMYCIN 1 grams Route: IVPB; Infused Over: 2 hrs; Site: right wrist; ah 16:15 Drug: NS 0.9% 500 ml Route: IV; Rate: bolus; Site: right wrist; ah 17:15 Follow up: Response: No adverse reaction; IV Status: Completed infusion ah 16:44 Drug: NS 0.9% 1000 ml Route: IV; Rate: 125 ml/hr; Site: right wrist; ah 17:15 Drug: Ativan 0.25 mg Route: IVP; Site: right wrist; ah 18:15 Follow up: Response: No adverse reaction; Anxiety decreased ah 19:30 Drug: fentaNYL (PF) 25 mcg Route: IVP; Site: right wrist; ah 20:30 Follow up: Response: No adverse reaction; RASS: Alert and Calm (0) ah 19:30 Drug: Zofran (Ondansetron) 4 mg Route: IVP; Site: right wrist; ah 20:30 Follow up: Response: No adverse reaction; Nausea is decreased 19:30 Drug: Ativan 0.25 mg Route: IVP; Site: right wrist; ah 20:30 Follow up: Response: No adverse reaction; Anxiety decreased Outcome: 14:42 Decision to Hospitalize by Provider. pm1 20:29 Admitted to Tele accompanied by nurse, via stretcher, room 415, with oxygen, with chart, Report called to receiving nurse 20:29 Condition: stable 20:29 Discharge instructions given to patient, Instructed on the need for admit, Demonstrated understanding of 21:04 Patient left the ED. sg Signatures: Dispatcher [place] EDJayant Daniels RN RN sg Julianne Manzano RN RN ss Jennifer Zarco RN RN Jc Vogel, LAUREEN HEAD CASHIER pm1 Tika Higuera RN RN Corrections: (The following items were deleted from the chart) 17:44 17:41 Reassessment: Nurse in room from [id number] collecting labs, EKG, urine and ah medications 18:18 17:48 Reassessment: Patient appears in no apparent distress at this time. Pt attempted to use the urinal and spilled urine in his bed. Bed change completed at this time. Pt tolerated well.
[2019-06-28 14:44] LABS: Blood Morphology Comment NOTED (NOT SEEN); Platelet Estimate DECR; Urine White Blood Cell Casts OK
[2019-06-28 14:45] LABS: Poikilocytosis 1+
[2019-06-28] MEDS ORDERED: VANCOMYCIN/NS 1 gm 1 GM/250 ML BAG IVPB ONE (15:45)
[2019-06-28] MEDS ORDERED: LORazepam 2 MG/ML VIAL ONE ×2 (17:14→19:26)
[2019-06-28] MEDS ORDERED: VANCOMYCIN/NS 1 gm 1 GM/250 ML BAG IVPB SCH (19:00)
[2019-06-28] MEDS ORDERED: ONDANSETRON 4 MG/2 ML VIAL ONE (19:26)
[2019-06-28] MEDS ORDERED: FENTANYL CITR 100 MCG/2 ML ONE (19:26)
[2019-06-28] MEDS ORDERED: ENOXAPARIN 40 MG/0.4 ML SQ ONE (20:57)
[2019-06-28] MEDS ORDERED: ALBUTEROL 2.5 MG/3 ML NEB SOL NEB PRN (20:59)
--- NOTE | 2019-06-28 21:14 | HP ---
Date of Admission: 06/28/2019 Chief Complaint: Fever, shortness of breath. History Of Present Illness: This is an 84-year-old male patient with severe terminal COPD problem who is on hospice care for last few months, came into emergency room today with complaints of fever and shortness of breath. Patient lives at home with his and he is on hospice care. He is concerned about having COVID-19 infection. He does not go out, but from time to time, his goes out for grocery shopping. He does not have any other outside exposure according to Dr. Gomez note. He is coughing up some dark brownish colored mucus which is nothing new. His blood pressure was low when he came into emergency room with systolic blood pressure around 80. He received approximately 3 L of IV fluid in the emergency room and then subsequently ER physician contacted and informed me about the request for this admission and I saw him in the ER. He was lying in bed, not in distress. Allergies: TO PENICILLIN, SULFA, AND LEVOFLOXACIN. Medications: List reviewed. Review of Systems: Respiratory: As mentioned above. Constitutional: As mentioned above. All other systems reviewed and negative except musculoskeletal, has chronic back pain due to arthritis. Family History: Significant for coronary artery disease and Alzheimer disease. Social History: Negative for smoking, alcohol use. Past Surgical History: TURP, cataract surgery, back surgery, arthroscopic knee surgery and surgery for lung cancer in 2015. Past Medical History: Hypertension, hyperlipidemia, COPD, lung cancer, anemia, impaired fasting glucose, osteoarthritis at multiple sites, coronary artery disease, hypothyroidism, hypokalemia, osteoporosis, abdominal aortic aneurysm, gastroesophageal reflux disease, depression, chronic diastolic congestive heart failure. Physical Examination: Vital Signs: Temperature 100.2, pulse 82, respiratory rate 27, blood pressure 92/39, height 5' 6", weight 199 lbs. General: Awake, alert, oriented, not in distress. HEENT: Head atraumatic, normocephalic. Conjunctivae nonerythematous. Sclerae white. Mouth, no thrush or edema noted. Ears/Nose, no mass, lesion, discharge noted. Neck: Supple. No JVD, lymph nodes, bruit, thyromegaly noted. Lungs: Some scattered crackles in lower lung james in mostly basal region. Heart: Normal heart sounds, no murmur or gallop. Abdomen: Soft, bowel sounds normal. No guarding, rigidity, tenderness, mass, hepatosplenomegaly, distention, or bruit noted. Extremities: No leg edema. No calf tenderness. Skin: No rash, ulcer, cellulitis. Lymphatics: No lymph node enlargement in neck, supraclavicular, infraclavicular region. Neuro: No focal neurological deficit. Chest: Unremarkable. External Genitalia: Deferred. Rectal: Deferred. Laboratory Data: Chest x-ray, shallow inspiration, baseline chronic interstitial lung pattern changes. White count 17.1, hemoglobin 10.3, platelets 111. Sodium 133, potassium 4.4, chloride 97, bicarb 30, BUN 27, creatinine 1.55, glucose 99. Liver function tests unremarkable. Troponin less than 0.02. Procalcitonin 2.65. Lactic acid 1.7. Urinalysis, 2+ esterase, 10 to 20 rbc's, 20 to 50 wbc, bacteria more than 12. Impression: 1. Probable pneumonia. 2. Chronic obstructive pulmonary disease. 3. Pulmonary fibrosis. 4. Chronic diastolic congestive heart failure. 5. Rule out COVID-19. 6. Osteoarthritis, multiple sites. 7. Volume depletion. 8. Lung cancer. 9. Impaired fasting glucose. 10. Hypertension. 11. Hyperlipidemia. 12. Osteoarthritis, multiple sites. 13. Coronary artery disease. 14. Hypothyroidism. 15. Abdominal aortic aneurysm. 16. Gastroesophageal reflux disease. 17. Depression. Plan: Admit patient to hospital for further evaluation and management of this problem. Patient is appropriate for inpatient and is expected to spend 2 midnights in hospital. We will go ahead and admit him, keep him in isolation to rule out COVID-19 and COVID-19 test was done in the emergency room, result is pending. Empiric antibiotic will be given. Follow up on culture results. Home medications will be continued per order. ER provider did discuss with the patient regarding his advanced directive and DNR order will be written in the chart per patient's decision. I will see him tomorrow morning for followup. Patient did not feel comfortable going home from emergency room and was admitted to the hospital. So obviously his hospice can be revoked while in the hospital. WAGNER/MODL Voice ID: [id number] MIRANDA
[2019-06-28] MEDS: NA CHLORIDE 0.9% 1,000 ML IV SCH (21:48)
[2019-06-28] MEDS ORDERED: METOPROLOL TAR 50 MG TAB PO ONE (22:15)
[2019-06-28] MEDS: ACETAMINOPHEN 500 MG TAB PO PRN (22:15)
[2019-06-28] MEDS: LORAZEPAM 0.5 MG TABLET PO PRN (22:30)
[2019-06-28 23:07] VITALS: BMI 32.2
[2019-06-29] MEDS ORDERED: PIPER/TAZO/NS 3.375gm 3.375 GM/100 ML BAG IVPB SCH (01:00)
[2019-06-29] MEDS ORDERED: VANCOMYCIN/NS 1 gm 1 GM/250 ML BAG IVPB SCH (04:00)
[2019-06-29] MEDS: NA CHLORIDE 0.9% 1,000 ML IV SCH ×2 (08:21→12:30)
[2019-06-29 08:35] LABS: Absolute Lymphocytes (CBC) 0.6 K/uL (0.7-4.9); Basophils % 0.2 % (0-1.3); Hematocrit 30.1 % (39.6-49.0); Lymphocytes % 3.7 % (15.3-44.8); MPV 10.4 fL (7.6-11.3); RBC Red Blood Cell Count 3.29 M/uL (4.33-5.43)
[2019-06-29] MEDS: AZITHROMYCIN IV 250 MG in NA CHLORIDE 0.9% 250 ML IVPB SCH (09:00)
[2019-06-29] MEDS ORDERED: CEFTRIAXONE 1 GM/NS 50 ML 1 GM/50 ML BAG IV SCH (09:00)
[2019-06-29] MEDS: CEFTRIAXONE/SWI 1gm 1 GM/10 ML SYR IV SCH ×2 (09:04→19:59)
[2019-06-29] MEDS: ACETAMINOPHEN 500 MG TAB PO PRN ×2 (09:04→15:42)
[2019-06-29] MEDS: LORAZEPAM 0.5 MG TABLET PO PRN (09:08)
--- NOTE | 2019-06-29 10:43 | EKG ---
Test Date: 2019-06-28 Test Time: 12:53:39 Ticket Marker: Reymundo Higuera MEASUREMENT RESULTS: Intervals: Rate: 76 RI: 126 QRSD: 84 QT: 364 QTc: 409 [place]: P: 24 RI: 126 QRS: -39 T: 72 INTERPRETIVE STATEMENTS: Normal sinus rhythm Left axis deviation Abnormal ECG Compared to ECG 01/28/2019 14:25:18 Atrial premature complex(es) no longer present Electronically Signed On 06-29-19 10:41:50 CDT by Rajan Duque
[2019-06-29 10:45] LABS: Blood Morphology Comment NOT SEEN (NOT SEEN); Platelet Estimate DECR; Urine White Blood Cell Casts OK
[2019-06-29] MEDS ORDERED: POLYETHYL GLY 3350 17 GM/DOSE PO PRN (15:44)
[2019-06-29] MEDS ORDERED: HOME MED 1 EA UNK (Aspirin [Aspirin Ec 325 Mg] 1 TAB) PO PRN (15:44)
[2019-06-29] MEDS ORDERED: LORAZEPAM 0.5 MG TABLET PO PRN (15:44)
[2019-06-29] MEDS: predniSONE 10 MG TAB PO SCH (16:13)
[2019-06-29] MEDS ORDERED: ASPIRIN EC 325 MG TABLET PO PRN (16:19)
[2019-06-29] MEDS ORDERED: CLOPIDOGREL 75 MG TABLET PO SCH (17:00)
[2019-06-29] MEDS ORDERED: HOME MED 1 EA UNK (Potassium [Potassium] 99 MG) PO SCH (17:00)
[2019-06-29] MEDS ORDERED: ENOXAPARIN 40 MG/0.4 ML SQ SCH (17:00)
--- NOTE | 2019-06-29 18:27 | PN ---
Date of Progress Note: 06/29/2019 Subjective: Patient was seen this morning for followup, sitting in chair. Denied any new complaints . Continues to have shortness of breath off and on. Objective: Vital Signs: Reviewed. HEENT: Unremarkable. Lungs: Bilateral good equal air entry. No rhonchi or rales. Heart: Sounds normal. Abdomen: Soft. Bowel sounds normal. No guarding, rigidity, tenderness, or distention. Extremities: No leg edema. Laboratory Data: White count 16.2, hemoglobin 10.1, platelets 96. Sodium 137, potassium 4, chloride 103, bicarb 26, BUN 24, creatinine 1.36, glucose 117. Impression: 1.Pneumonia. 2.Urinary tract infection. 3.Chronic obstructive pulmonary disease. 4.Chronic diastolic congestive heart failure. Plan: We will go ahead and continue current antibiotic. Home medications will be continued per char portillo. Patient had a brief episode of paroxysmal atrial fibrillation. Hemodynamically, he was stable. His metoprolol will be continued per order. Risk of anticoagulation is higher than the benefit in hi s case, so we will not use any anticoagulation. We will see him tomorrow for followup. Possible dis charge to go home tomorrow depending on his condition. His COVID- 19 test is pending. He remains in isolation until the result comes back. WAGNER/MODL Voice ID: [id number] Report ID: [id number]
[2019-06-29] MEDS: HYDROCODONE/APAP 10/325 TAB PO PRN ×2 (18:34→22:28)
[2019-06-29] MEDS: METHADONE HCL 10 MG TAB PO SCH ×2 (20:00→20:17)
[2019-06-29] MEDS: AMLODIPINE 5 MG TAB PO SCH (20:00)
[2019-06-29] MEDS: LOSARTAN POTASSIUM 50 MG TABLET PO SCH (20:01)
[2019-06-29] MEDS: METOPROLOL TAR 50 MG TAB PO SCH (20:03)
[2019-06-29] MEDS ORDERED: METHADONE HCL PO SCH (21:00)
[2019-06-29] MEDS ORDERED: FLUOROMETHOLONE 0.1% EACH EYE SCH (21:00)
[2019-06-29] MEDS ORDERED: DOXAZOSIN 2 MG TAB PO SCH (21:00)
[2019-06-29] MEDS ORDERED: FLUOROMETHOLONE 0.1% OPTH SCH ×2 (21:00)
[2019-06-30] MEDS: HYDROCODONE/APAP 10/325 TAB PO PRN ×3 (02:15→10:24)
[2019-06-30 04:11] LABS: Absolute Lymphocytes (CBC) 0.5 K/uL (0.7-4.9); Basophils % 0.3 % (0-1.3); Hematocrit 28.6 % (39.6-49.0); Lymphocytes % 4.3 % (15.3-44.8); MPV 10.1 fL (7.6-11.3); RBC Red Blood Cell Count 3.12 M/uL (4.33-5.43)
[2019-06-30 04:24] LABS: Magnesium 2.1 mg/dL (1.8-2.4); Potassium 3.4 mmol/L (3.5-5.1)
[2019-06-30] MEDS ORDERED: LEVOTHYROXINE SOD 0.1 MG TAB PO SCH (06:00)
--- NOTE | 2019-06-30 08:09 | RAD REPORT ---
EXAM DESCRIPTION: Satish Single View06/30/2019 5:51 am CLINICAL HISTORY: Shortness breath COMPARISON: June 28 2019 FINDINGS: Worsening in a left alveolar opacities. Mild worsening in the right pulmonary opacities Heart remains enlarged. Postsurgical changes involve the chest IMPRESSION: Worsening in bilateral pulmonary opacities left greater than right may represent pneumon ia or pulmonary edema
[2019-06-30 08:21] VITALS: O2SAT 98
[2019-06-30 08:28] VITALS: BP 134/58; TEMP 97.8
[2019-06-30] MEDS: METOPROLOL TAR 50 MG TAB PO SCH (08:52)
[2019-06-30] MEDS: AMLODIPINE 5 MG TAB PO SCH (08:53)
[2019-06-30] MEDS: predniSONE 10 MG TAB PO SCH (08:54)
[2019-06-30] MEDS: LOSARTAN POTASSIUM 50 MG TABLET PO SCH (08:54)
[2019-06-30] MEDS ORDERED: [UNRECOGNIZED DRUG - OTHER] PO SCH (09:00)
[2019-06-30] MEDS ORDERED: VIT BCOMP PO SCH (09:00)
[2019-06-30] MEDS ORDERED: FERROUS FUMARATE PO SCH (09:00)
[2019-06-30] MEDS: METHADONE HCL 10 MG TAB PO SCH (09:00)
[2019-06-30] MEDS ORDERED: PSYLLIUM 1 PKT PO SCH (09:00)
[2019-06-30] MEDS ORDERED: HOME MED 1 EA UNK (Duloxetine Hcl [Cymbalta] 1 TAB) PO SCH (09:00)
[2019-06-30] MEDS ORDERED: DULOXETINE 30 MG CAP PO SCH (09:00)
[2019-06-30] MEDS ORDERED: MAGNESIUM CHLORIDE 64 MG TAB PO SCH (09:00)
[2019-06-30] MEDS: CEFTRIAXONE/SWI 1gm 1 GM/10 ML SYR IV SCH (09:00)
[2019-06-30] MEDS ORDERED: HOME MED 1 EA UNK (Fluticasone/Umeclidin/Vilanter [Trelegy Ellipta 100-62.5-25] 1 PUFF) IH SCH (09:00)
[2019-06-30] MEDS: AZITHROMYCIN IV 250 MG in NA CHLORIDE 0.9% 250 ML IVPB SCH (09:01)
== END 2019-06-30 12:45 | disposition hospice, home (50) | DRG 194 ==
LOC: ER 11:42 → ERHOLD 18:25 → 4TH 20:20
PROVIDERS: ADMIT Internal Medicine; ATTEND Internal Medicine
DX: J18.9 Pneumonia, unspecified organism (principal); N39.0 Urinary tract infection, site not specified; J44.0 Chronic obstructive pulmonary disease with (acute) lower respiratory infection; I50.32 Chronic diastolic (congestive) heart failure; I11.0 Hypertensive heart disease with heart failure; I48.0 Paroxysmal atrial fibrillation; Z20.828 Contact with and (suspected) exposure to other viral communicable diseases; Z88.1 Allergy status to other antibiotic agents; Z88.0 Allergy status to penicillin; Z85.118 Personal history of other malignant neoplasm of bronchus and lung; Z87.438 Personal history of other diseases of male genital organs; E78.5 Hyperlipidemia, unspecified; I25.10 Atherosclerotic heart disease of native coronary artery without angina pectoris; K21.9 Gastro-esophageal reflux disease without esophagitis; J84.10 Pulmonary fibrosis, unspecified; M19.90 Unspecified osteoarthritis, unspecified site; E86.9 Volume depletion, unspecified; R73.01 Impaired fasting glucose; E03.9 Hypothyroidism, unspecified; I71.4 Abdominal aortic aneurysm, without rupture; F32.9 Major depressive disorder, single episode, unspecified; Z90.49 Acquired absence of other specified parts of digestive tract; Z86.73 Personal history of transient ischemic attack (TIA), and cerebral infarction without residual deficits
CPT/HCPCS: 36415; 71045; 80048; 80076; 81003; 81015; 82150; 82550; 82553; 82728; 83605; 83690; 83735; 84145; 84484; 85025; 85610; 85730; 87040; 87070; 87077; 87081; 87086; 87088; 87186; 87804; 93005; 94760; 96361; 96374; 96375; 99285; J0456; J0696; J1650; J1940; J2405; J2543; J3010; J3370; J7030; J7040; J7512; U0001

== ENCOUNTER 2019-07-01 06:30 | Inpatient (IN) | payer OTHER ==
--- OUTSIDE RECORDS SUMMARY | 2019-07-01 06:33 | XMS REPORT ---
:1935 Author Organization [facility] t Address [address] [place] [address] Dr. Walters [address] [place] [address] Care Team Providers Name Role Phone Charlotte VEGA Unavailable Unavailable Problems This patient has no known problems. Allergies, Adverse Reactions, Alerts This patient has no known allergies or adverse reactions. Medications This patient has no known medications. Results Test Description Test Time Test Comments Text Results Atomic Results Result Comments CT, CTA ABDOMEN 2017-04-28 15:21:00 Addendum BeginsREP ORT STATUS:A Addendum: I reviewe d the the images and nonvascular findings enu merated by Dr. Pierce in his report and con cur. There are mild nonspecific increased i nterstitial changes in the lung bases, p ossibly scarring. Gas in biliary tree and gall bladder is likely related to prior sphincterot marley. Signed: Uzair Madden MDReport Verif ied Date/Time: 04/28/2017 15:21:39 Reading Location: [place] [address] Angio Body Reading Room Addendum EndsFINAL REPORT CT angiography of the abdominal aorta and pelvic arteries, 28 April 2017 INDICATION: This is a 81 year old male with a diagnosis of abdominal aortic aneurysm pr esents for assessment. This study is pe rformed in an attempt to avoid an invasive procedure. TECHNIQUE: Spiral acquisitio n before and during intravenous contrast administration using a Siemens CT scanner. Images were obtained before and during t he dynamic passage of intravenous contr ast material. Multi-planar 3-D volume-rend ering reconstruction was performed using an independent workstation inte ractively by the interpreting physician as we ll as the 3-D specialist for optimal visua lisation of the abdominal aorta, pelvic pablo napoleon, and its proximal branches. Please re maura to the contrast sheet scanned in th e EPIC system for the amount and route of cont rast given. This exam was performed according to our departmental dose-optimisati on programme, which includes automated exp osure control, adjustment of the mA and/or kV according to patient size and/or use of i terative reconstruction technique. Do se modulation, iterative reconstruction, an d/or weight based adjustment of the mA/kV was utilized to reduce the radiation dose to as low as reasonably achievable. FINDI NGS: VASCULAR: The abdominal aorta is remar kable for mild aneurysmal dilation identifi ed in the infrarenal abdominal aorta, extending into the aortic bifurcation. Scat tered calcific atherosclerosis seen. No obv ious thrombus is identified. There is no bridger dence of acute aortic pathology, specifical ly, there is no dissection, intramural hemat sariah, or contained rupture. Quantitative dimen sions of the abdominal aorta are as follo ws: 2.4 cm at the mesenteric segment; 3.0 cm at the renal segment; proximal infrarenal level measures 1.7 x 1.8 cm; 4.0 x 3.7 cm a t the mid infrarenal level; 3.9 x 4.1 cm at the distal infrarenal level; 3.0 x 2.8 cm above the aortic bifurcation. The comm on iliac, external iliac, common femor al, and the visualised superficial femor al arteries are patent. There is moderate ca lcific atherosclerosis scattered al cyndee the pelvic arteries. Dilation is identi fied in the distal right common iliac ar lonny, at image 162, measure approximately 1 .6 cm in diameter. Minimum luminal di ameter of the left external iliac artery i mage 209 is 6 to 7 mm in diameter. Minimum malinda alayna diameter at image 29 of the right inspector hairspring al iliac artery is approximately 3.9 x 8.8 m m. The celiac axis, SMA, FABIANO are widely pa tent. Replaced right hepatic artery is seen , common variant. Single left and two right re nal veins are seen draining normally into the IVC. NON-VASCULAR: The lung bases are unremarkable. Some dependent changes are seen. In the abdomen, the vi sualised liver and spleen appears unremarka ble. No abnormal enhancing structure is ident ified in the liver, except for patchy enh ancement is seen, in the peripheral aspect of the right hepatic lobe at image 20, likely rep resent vascular shunting. The liver edge is smooth. Air is seen in the biliary system, likely related percent prior instrumentatio n. Correlate with procedure note. The gallblad henry is identified. No stone is seen . Foci of air is also identified in the gallb ladder, image 41. The Endo will dictated there after. The adrenal glands are not enlar ged. The pancreas appears unremarkable. No acu te renal pathology is seen and no hyd ronephrosis or perirenal fluid collection i s identified. Bowel is not well assessed b y CT angiography as enteric contrast is not g iven. No obvious bowel dilation is identified . No free air free fluid seen abdomen and pelvis. Small fat-containing inguinal geri ia is identified in the right. The prostate g land is prominent. The bladder appea rs unremarkable. No free air or free fluid is seen in the abdomen and pelvis. No signi ficant retroperitoneal adenopathy i s identified. The bony windows, no acute bony pathology is seen. Some degenerative hernandes ges is noted. CONCLUSION: 1. Mild aneurys mal dilation is identified infrarenal abdomi nal aorta with dimensions as described abov e. Maximum diameter measure approximate ly 4.2 x 3.7 cm at the mid infrarenal level. See snapshot for details. There is no evidenc e of acute aortic pathology, specifically, the re is no dissection, intramural hemat sariah, or contained rupture. Quantitative dimen cecilia of the abdominal aorta are as noted . The radiology department requires follow d uration to be dictated, for example in on e year's time, however, the referring physi ari is the Media Relations Manager [employer] of [facility] and therefore no r ecommendation necessary. Diffuse calcific atherosclerosis seen in the pelvic arteries with no critical obstructive lesion identifie d. 2. Patent mesenteric and renal arterie s. 3. Other findings as described above. 4. An addendum will be dictated regarding [facility] non-vascular findings by the Media Relations Manager R adiologist. Signed: Marc Pierce eport Verified Date/Time: 04/28/2017 13:31 :12 Reading Location: [facility] [id number] Cardio logy MRI -CREATININE 2017-04-28 12:16:00 Test Item Value Reference Range Comments POC-CREATININE (BEAKER) (test code 1.0 mg/dL 0.6-1.3 TESTED AT [facility] 6720 = 1859) [facility] [address] POC-EGFR (MALLORY) (test code = 72 mL/min/1.73M2 1859)
[2019-07-01] MEDS ORDERED: ACETAMINOPHEN 500 MG TAB ONE (06:51)
[2019-07-01] MEDS ORDERED: ACETAMINOPHEN 650MG/RECT SUPP PR ONE (07:08)
[2019-07-01 07:13] LABS: Absolute Lymphocytes (CBC) 0.6 K/uL (0.7-4.9); Basophils % 0.2 % (0-1.3); Hematocrit 30.7 % (39.6-49.0); Lymphocytes % 4.2 % (15.3-44.8); MPV 9.8 fL (7.6-11.3); RBC Red Blood Cell Count 3.37 M/uL (4.33-5.43)
[2019-07-01 07:20] LABS: Protime INR 0.97
--- NOTE | 2019-07-01 08:08 | RAD REPORT ---
EXAM DESCRIPTION: Satish Single View07/01/2019 7:44 am CLINICAL HISTORY: Shortness of breath COMPARISON: June 29 FINDINGS: Worsening in left lung opacities. No change in mild right lung opacities Heart remains enlarged. Postsurgical changes involve the chest IMPRESSION: Worsening in left lung opacities which are moderate to marked probably pneumonia
[2019-07-01 08:09] LABS: ALT/SGPT 23 U/L (12-78); AST/SGOT 40 U/L (15-37); Albumin 2.9 g/dL (3.4-5.0); Alkaline Phosphatase 69 U/L (45-117); BUN Blood Urea Nitrogen 17 mg/dL (7-18); Bicarbonate 26 mmol/L (21-32); Bilirubin Direct 0.2 mg/dL (0-0.2); Bilirubin Total 0.7 mg/dL (0.2-1.0); Creatine Phosphokinase 75 U/L (39-308); Glucose Level 115 mg/dL (74-106); Potassium 3.3 mmol/L (3.5-5.1); Protein, Total 6.5 g/dL (6.4-8.2); Sodium Level 138 mmol/L (136-145); Troponin (Emerg Dept Use Only) < 0.02 ng/mL (0.0-0.045)
[2019-07-01] MEDS ORDERED: POTASSIUM 25 MEQ EFFERV TAB ONE (08:27)
[2019-07-01] MEDS ORDERED: FUROSEMIDE 20 MG/ 2ML VIAL ONE (08:27)
[2019-07-01] MEDS ORDERED: VANCOMYCIN/NS 1 gm 1 GM/250 ML BAG IV ONE (08:45)
[2019-07-01] MEDS ORDERED: CEFEPIME/SWI 2gm 2 GM/20 ML SYR IV ONE (08:45)
[2019-07-01 09:03] LABS: Urine Bacteria 20-50 /HPF (NONE SEEN)
[2019-07-01 09:04] LABS: Urine Culture Reflex Order NOT NEEDED
[2019-07-01 09:08] LABS: Urine Appearance CLEAR; Urine Bilirubin NEGATIVE (NEG); Urine Blood 1+ (NEG); Urine Color YELLOW; Urine Glucose NEGATIVE (NEG); Urine Protein 1+ (NEG); Urine Specific Gravity 1.015 (1.005-1.030); Urine Urobilinogen 0.2 mg/dL (0.2-1.0); Urine pH 6.5 (5.0-7.0)
[2019-07-01 09:20] LABS: Urine Microscopic Reflex ORDER UMIC
[2019-07-01 09:30] LABS: Urine Bacteria 20-50 /HPF (NONE SEEN)
[2019-07-01 09:31] LABS: Urine Culture Reflex Order NOT NEEDED; Urine White Blood Cell Casts 0-5 /LPF (NONE SEEN)
[2019-07-01] MEDS ORDERED: MORPHINE 2 MG/ML SYR ONE ×2 (09:40→11:17)
--- NOTE | 2019-07-01 10:13 | ER ---
Nurse's Notes [facility] Name: Pedro Morales Age: 84 yrs Sex: Male : 1935 Arrival Date: 07/01/2019 Time: 06:41 Bed 7 Private MD: Diagnosis: Pneumonia due to other specified bacteria;Unspecified combined systolic (congestive) and diastolic (congestive) heart failure;Other sepsis;Urinary tract infection, site not specified Presentation: 06/30 06:50 Chief complaint: EMS states: Called for patient with shortness of breath since 1800 lp1 last night; using home O2 with no relief; Per , patient with O2 in 60's% on home O2; per EMS, patient refused CPAP; 95% on NRB. Coronavirus screen: Patient tested for Covid-19 on prior ED visit. Ebola Screen: No symptoms or risks identified at this time. Initial Sepsis Screen: Does the patient meet any 2 criteria? RR > 20 per min. HR > 90 bpm. Yes Does the patient have a suspected source of infection? Yes: Productive cough/pneumonia. Risk Assessment: Do you want to hurt yourself or someone else? Patient reports no desire to harm self or others. Onset of symptoms was June 30, 2019 at 18:00. Care prior to arrival: Oxygen administered. via a non-rebreather mask. 06:50 Method Of Arrival: EMS: [facility] lp1 06:50 Acuity: ZACHERY 2 lp1 07:15 Coronavirus screen: Surgical mask placed on patient. Patient moved to private room, aa5 placed in contact and droplet isolation with eye protection until further assessment. Patient denies a cough. Patient reports shortness of breath or difficulty breathing. Patient reports a measured and/or subjective temperature greater than 100.4F. Patient denies travel on a cruise ship or to a country the [facility] currently lists as an affected area. Patient denies contact with known and/or suspected case of COVID-19. Triage Assessment: 06:25 General: Appears in no apparent distress. Behavior is calm, cooperative, appropriate rr5 for age, patient came from home brought by EMS, on NRM at 15 liter per minute. hooked to BIPAP by RT. vital signs taken and recorded. multiple bruises on upper extremities.edema noted on lower extremities.. 06:25 Pain: Denies pain. EENT: No signs and/or symptoms were reported regarding the EENT rr5 system. Neuro: Level of Consciousness is awake, alert, obeys commands, Oriented to person, place, time, situation. Cardiovascular: Capillary refill < 3 seconds Patient's skin is warm and dry. Edema. Respiratory: Reports shortness of breath Onset: The symptoms/episode began/occurred yesterday, the patient has mild shortness of breath. Historical: - Allergies: 07:05 Levaquin; lp1 07:05 PENICILLINS; lp1 07:05 Sulfa (Sulfonamide Antibiotics); lp1 - Home Meds: 07:05 Fentanyl Patch Topical [Active]; hydrochlorothiazide 12.5 mg Oral tab 1 tab once daily lp1 [Active]; duloxetine 60 mg Oral cpDR 1 cap once daily [Active]; prednisone 10 mg Oral tab 1 tab once daily [Active]; metoprolol tartrate 50 mg Oral tab 1 tab 2 times per day [Active]; Plavix 75 mg Oral tab 1 tab once daily [Active]; losartan 50 mg Oral tab 1 tab 2 times per day [Active]; fluorometholone 0.1 % ophthalmic drps 1 drop 2 times per day [Active]; [place] 10-325 mg Oral tab 1 tab every 4 hours for Pain [Active]; lorazepam 0.5 mg Oral tab 1 tab nightly [Active]; levothyroxine 100 mcg tab 1 tab once daily [Active]; Albuterol Inhl 4 times per day [Active]; Lasix 40 mg Oral tab 1 tab once daily [Active]; trelegy Ellipta 100mcg/62.5mcg daily [Active]; doxazosin 1 mg oral tab 1 tab nightly [Active]; amlodipine 5 mg tab twice a day [Active]; magnesium 125 mg daily [Active]; Metamucil Smooth Texture Oral daily [Active]; Super B-50 Complex Oral cap daily [Active]; Vitamin D3 oral oral daily [Active]; potassium chloride oral [Active]; aspirin 325 mg Oral tab 1 tab as needed [Active]; Miralax 17 gram Oral pwpk 1 packet once daily [Active]; 09:20 Morphine Oral [Active]; aa5 - PMHx: 07:05 AAA; Back pain; COPD; Degenerative disc disease; Lung Cancer; TIA; lp1 - PSHx: 07:06 CABG; Cholecystectomy; lp1 - Social history:: Smoking status: Patient/guardian denies using tobacco, the patient reports quitting approximately 15 years ago. Screenin:54 Abuse screen: Denies threats or abuse. Denies injuries from another. Nutritional lp1 screening: No deficits noted. Tuberculosis screening: No symptoms or risk factors identified. Fall Risk Total Macias Fall Scale indicates High Risk Score (45 or more points). Fall prevention measures have been instituted. Side Rails Up X 2 Frequent Obs/Assessments Occuring. Assessment: 07:00 Reassessment: patient having when swallowing. ED provider aware tylenol tablet rr5 changed to suppository. not to do fluid as per sepsis protocol, patient has history of CHF. 07:30 General: Appears comfortable, Behavior is calm, cooperative, appropriate for age. Pain: aa5 Denies pain. Neuro: Level of Consciousness is awake, alert, obeys commands, Oriented to person, place, time, situation. Cardiovascular: Heart tones S1 S2 present Edema 3+ pitting edema noted to naomi lower extremities. Rhythm is sinus rhythm. Respiratory: Reports shortness of breath at rest Denies cough. Pt tolerating bi-pap well. Pt states " I have a cpap at home but I just hate it and I won't wear it". Pt also reports he is in hospice for COPD. Airway is patent Respiratory effort is even, unlabored, Respiratory pattern is tachypnea Breath sounds are diminished bilaterally. GI: Abdomen is round Bowel sounds present X 4 quads. Abd is soft and non tender X 4 quads. : No signs and/or symptoms were reported regarding the genitourinary system. EENT: No signs and/or symptoms were reported regarding the EENT system. Derm: Skin is pink, warm \\T\\ dry. Musculoskeletal: Range of motion: intact in all extremities. 07:45 Reassessment: Pt assisted with urinal and urine specimen collection. . aa5 07:55 Reassessment: Came out of pt's room at 0755. aa5 08:53 Reassessment: Repositioned in bed. Assisted patient with urinal. Pt c/o dry mouth. aa5 Assisted patient with drinking sips of water and with using lemon swabs. Pt tolerating Bi-PAP well, no anxiety noted. Pt requesting to take a break from wearing the Bi-PAP, attempted non-rebreather at 15L O2 for 2 minutes, pt did not tolerate non-rebreather, RR increased, SOB increased, and O2 sat decreased to 85% with non-rebreather. Pt was placed back on Bi-PAP and SOB improved and O2 sat 100% with Bi-PAP. Pt now resting in bed with eyes closed, respirations are tachypnea, skin is pink/warm/dry. Came out of pt's room at 0921. . 08:53 Reassessment: Bi-PAP settings: IPAP 10, EPAP 5, FiO2 100%, RR 14. aa5 09:20 Reassessment: Pt c/o increased SOB, pt used urinal by himself without assistance and aa5 Bi-pap mask position was disturbed, O2 sat at 97% at this time. Repositioned pt in bed and repositioned Bi-PAP mask and pt's SOB improved, O2 sat now at 100%. Pt states "I take morphine at home and I took 1mg around 6am". Pt states he would like some morphine at this time for comfort, provider was notified. Pt also states "I do not want to be intubated if it comes to that, I just want you guys to keep me comfortable and give me morphine and let me go instead of being intubated. Code status is DNR. Repeat Lactate was drawn and sent to lab. Repositioned pt in bed, pt now resting in bed with eyes closed, respirations are tachypnea, skin is pink/warm/dry. Bed remains in low positions, side rails x 2, call albarado remains within reach. Came out of pt's room at 0943. . 09:20 Cardiovascular: Rhythm is sinus rhythm. aa5 10:24 Reassessment: RT adjusting Bi-PAP settings, FiO2 changed to 60%, EPAP changed to 6, aa5 pt's O2 sat 92%. . 10:50 Reassessment: Repositioned patient in bed. Sips of water provided for dry mouth. aa5 Vaseline applied to lips for comfort. Pt now resting with eyes closed, tolerating bi-pap well. Came out of room at 1125. 11:00 Reassessment: Pt requesting pain medication, provider notified. Pt c/o chronic back aa5 pain. . 11:20 Reassessment: Pt resting in bed with eyes closed, respirations are tachypnea, skin is aa5 pink/warm/dry. Tolerating bi-pap well. . 12:15 Reassessment: Pt transferred to Room 232, with Oxygen via non-rebreather, pt tolerated aa5 well. Pt became more SOB upon transfer from ER stretcher to Hospital bed, RT was at bedside placing pt back on Bi-PAP. . Vital Signs: 06:50 BP 122 / 49; Pulse 110; Resp 30; Temp 100.6(A); Pulse Ox 95% on 15% Non-rebreather mask;lp1 07:00 BP 145 / 69; Pulse 100; Resp 26; Pulse Ox 100% on 100% BiPAP; lp1 07:17 Weight 90.72 kg; rr5 07:45 BP 134 / 62; Pulse 92; Resp 26 S; Temp 100.6(O); Pulse Ox 100% on BiPAP; Pain 0/10; aa5 09:27 Temp 98.5(O); jl7 09:27 BP 133 / 64; Pulse 102; Resp 25; Temp 98.5; Pulse Ox 100% on 100% BiPAP; jl7 10:20 BP 129 / 52; Pulse 94; Resp 24 S; Pulse Ox 93% on 60% BiPAP; aa5 10:45 BP 134 / 63; Pulse 94; Resp 26; Pulse Ox 91% on BiPAP; aa5 11:15 BP 118 / 58; Pulse 93; Resp 24 S; Temp 97.5(O); Pulse Ox 93% on 60% BiPAP; aa5 ED Course: 06:25 Patient has correct armband on for positive identification. Placed in gown. Bed in low rr5 position. Call light in reach. Side rails up X 1. child monitor on. Pulse ox on. NIBP on. 06:25 Warm blanket given. rr5 06:25 EKG done, by ED staff, reviewed by Robbie Rae MD Flu and/or RSV swab sent to lab. rr5 06:41 Patient arrived in ED. sg 06:41 Kishan Patino PA is PHCP. cp 06:41 Robbie Rae MD is Attending Physician. cp 06:45 Inserted saline lock: 20 gauge in right hand, using aseptic technique. Blood collected. rr5 06:54 Triage completed. lp1 06:55 Arm band placed on. lp1 07:10 Report received from KAYLYN Cruz. aa5 07:16 Latasha Smallwood, KAYLYN is Primary Nurse. aa5 07:44 Chest Single View XRAY In Process Unspecified. EDMS 07:45 Urine collected: Urine micro and culture sent to lab. aa5 08:03 Ernesto Fine MD is Attending Physician. cp 10:10 Francesco Gomez MD is Hospitalizing Provider. cp 12:15 No provider procedures requiring assistance completed. Patient admitted, IV remains in aa5 place. Administered Medications: 06:59 Not Given (Physician Discretion): Acetaminophen 1000 mg PO once cp 07:00 Drug: Acetaminophen Suppository 650 mg Route: KS; rr5 09:40 Follow up: Response: Temperature is decreased aa5 09:25 Drug: Cefepime 2 grams {Note: administered slow IVP per pharmacy at this time. .} aa5 Route: IVPB; Rate: 200 ml/hr; Infused Over: 30 mins; Site: right hand; 09:30 Drug: Potassium Effervescent Tablet 50 mEq Route: PO; aa5 09:30 Drug: Lasix 20 mg Route: IVP; Site: right hand; aa5 09:35 Drug: vancoMYCIN 1 grams Route: IVPB; Infused Over: 2 hrs; Site: right hand; aa5 11:35 Follow up: Response: No adverse reaction; IV Status: Completed infusion aa5 09:37 Drug: morphine 2 mg Route: IVP; Site: right hand; aa5 11:00 Follow up: Response: No adverse reaction; Pain is unchanged, physician notified aa5 09:50 CANCELLED (Duplicate Order): morphine 2 mg IVP once; VO received at 0915 aa5 11:15 Drug: Ativan 0.25 mg Route: IVP; Site: right hand; aa5 11:17 Follow up: Response: No adverse reaction aa5 11:17 Drug: morphine 2 mg Route: IVP; Site: right hand; aa5 11:22 Follow up: Response: No adverse reaction aa5 11:26 CANCELLED (Physician Discretion): morphine 2 mg IVP once; (PAIN>8) RASS on ADMN: aa5 Combtv4, Very Agttd3, Agttd2, Rstlss1, AlertClm0, Drwsy-1, LtSdtn-2, ModSdtn-3, DpSdtn-4, UnArsble-5 x2 11:26 CANCELLED (Duplicate Order): morphine 2 mg IVP once; VO received at 0911 aa5 12:42 CANCELLED (Pt in room 232 at this time. Will notify Beatriz to administer. ): Zithromax dm5 500 mg IVPB once over 1 hrs; mix in 250 mL NS Output: 07:45 Urine: 100ml (Voided); Total: 100ml. aa5 08:53 Urine: 200ml (Voided); Total: 300ml. aa5 09:20 Urine: 200ml (Voided); Total: 500ml. aa5 10:50 Urine: 300ml (Voided); Total: 800ml. aa5 Outcome: 10:11 Decision to Hospitalize by Provider. cp 12:15 Patient left the ED. aa5 12:15 Admitted to Tele accompanied by nurse, accompanied by tech, via stretcher, with oxygen, aa5 with chart, Report called to KAYLYN Henderson 12:15 Condition: stable 12:15 Instructed on the need for admit, Demonstrated understanding of instructions. Signatures: Dispatcher [employer] EDMS Jayant Lopez RN RN Latasha Daniels RN RN aa5 Roya Ellison RN RN lp1 Kishan Patino PA PA Yun Noguera, RN RN jl7 Anthony Saeed, RN RN rr5 Swetha Dlaey RN dm5 Corrections: (The following items were deleted from the chart) 07:14 07:00 Reassessment: patient having when swallowing. ED provider aware tylenol rr5 tablet changed to suppository. rr5 09:50 09:17 morphine 2 mg IVP in right hand aa5 aa5 09:50 09:15 vancoMYCIN 1 grams IVPB in right hand over 2 hrs aa5 aa5 09:52 09:10 Cefepime 2 grams IVPB at 200 ml/hr in right hand over 30 mins aa5 aa5 53 09:00 Lasix 20 mg IVP in right hand aa5 aa5 53 09:00 Potassium Effervescent Tablet 50 mEq PO aa5 aa5 10:06 09:20 Reassessment: Pt c/o increased SOB, pt used urinal by himself without assistance aa5 and Bi-pap mask position was disturbed, O2 sat at 97% at this time. Repositioned pt in bed and repositioned Bi-PAP mask and pt's SOB improved, O2 sat now at 100%. Pt states "I take morphine at home and I took 1mg around 6am". Pt states he would like some morphine at this time for comfort, provider was notified. Pt also states "I do not want to be intubated if it comes to that, I just want you guys to keep me comfortable and give me morphine and let me go instead of being intubated. Code status is DNR. . aa5 10: 09:20 Reassessment: Pt c/o increased SOB, pt used urinal by himself without assistance aa5 and Bi-pap mask position was disturbed, O2 sat at 97% at this time. Repositioned pt in bed and repositioned Bi-PAP mask and pt's SOB improved, O2 sat now at 100%. Pt states "I take morphine at home and I took 1mg around 6am". Pt states he would like some morphine at this time for comfort, provider was notified. Pt also states "I do not want to be intubated if it comes to that, I just want you guys to keep me comfortable and give me morphine and let me go instead of being intubated. Code status is DNR. Came out of pt's room at 0943. . aa5 10:11 07:30 Cardiovascular: Heart tones S1 S2 present Rhythm is sinus rhythm aa5 aa5 10:25 10:24 Reassessment: RT adjusting Bi-PAP settings . aa5 aa5 10:26 10:24 Reassessment: RT adjusting Bi-PAP settings, FiO2 changed to 60%, pt's O2 sat 92%. aa5 . aa5 11:39 11:15 BP 118 / 58; Pulse 93bpm; Resp 24bpm; Spontaneous; Pulse Ox 93% 02 60% BiPAP; aa5 aa5 12:53 12:43 Patient left the ED. aa5 aa5
--- NOTE | 2019-07-01 10:13 | EDPHYS ---
Physician Documentation [facility] Name: Pedro Morales Age: 84 yrs Sex: Male : 1935 Arrival Date: 07/01/2019 Time: 06:41 Bed 7 Private MD: ED Physician Ernesto Fine HPI: 06/30 06:57 This 84 yrs old Male presents to ER via EMS with complaints of Respiratory cp Distress. 06:57 The patient has shortness of breath at rest. Onset: The symptoms/episode began/occurred cp last night. Duration: The symptoms are continuous, and are steadily getting worse. Associated signs and symptoms: Pertinent positives: fever, Pertinent negatives: chest pain, diaphoresis, vomiting. Severity of symptoms: in the emergency department the symptoms have improved moderately. The patient has been recently been admitted at [facility], was discharged earlier this week, for similar complaints. Historical: - Allergies: 07:05 Levaquin; lp1 07:05 PENICILLINS; lp1 07:05 Sulfa (Sulfonamide Antibiotics); lp1 - Home Meds: 07:05 Fentanyl Patch Topical [Active]; hydrochlorothiazide 12.5 mg Oral tab 1 tab once daily lp1 [Active]; duloxetine 60 mg Oral cpDR 1 cap once daily [Active]; prednisone 10 mg Oral tab 1 tab once daily [Active]; metoprolol tartrate 50 mg Oral tab 1 tab 2 times per day [Active]; Plavix 75 mg Oral tab 1 tab once daily [Active]; losartan 50 mg Oral tab 1 tab 2 times per day [Active]; fluorometholone 0.1 % ophthalmic drps 1 drop 2 times per day [Active]; Purchase 10-325 mg Oral tab 1 tab every 4 hours for Pain [Active]; lorazepam 0.5 mg Oral tab 1 tab nightly [Active]; levothyroxine 100 mcg tab 1 tab once daily [Active]; Albuterol Inhl 4 times per day [Active]; Lasix 40 mg Oral tab 1 tab once daily [Active]; trelegy Ellipta 100mcg/62.5mcg daily [Active]; doxazosin 1 mg oral tab 1 tab nightly [Active]; amlodipine 5 mg tab twice a day [Active]; magnesium 125 mg daily [Active]; Metamucil Smooth Texture Oral daily [Active]; Super B-50 Complex Oral cap daily [Active]; Vitamin D3 oral oral daily [Active]; potassium chloride oral [Active]; aspirin 325 mg Oral tab 1 tab as needed [Active]; Miralax 17 gram Oral pwpk 1 packet once daily [Active]; 09:20 Morphine Oral [Active]; aa5 - PMHx: 07:05 AAA; Back pain; COPD; Degenerative disc disease; Lung Cancer; TIA; lp1 - PSHx: 07:06 CABG; Cholecystectomy; lp1 - Social history:: Smoking status: Patient/guardian denies using tobacco, the patient reports quitting approximately 15 years ago. ROS: 07:00 Constitutional: Positive for fever. cp 07:00 Eyes: Negative for injury, pain, redness, and discharge. cp 07:00 ENT: Negative for drainage from ear(s), ear pain, difficulty swallowing, difficulty handling secretions. 07:00 Cardiovascular: Positive for edema, Negative for chest pain. 07:00 Respiratory: Positive for cough, "sounds productive", shortness of breath. 07:00 Abdomen/GI: Negative for abdominal pain, vomiting, diarrhea, constipation, black/tarry stool, rectal bleeding. 07:00 Skin: Negative for rash. 07:00 Neuro: Negative for altered mental status, headache. 07:00 All other systems are negative. Exam: 06:48 ECG was reviewed by the Attending Physician. cp 07:05 Constitutional: The patient appears alert, awake, non-diaphoretic, non-toxic, well cp developed, well nourished, febrile, in obvious distress, mildly distressed. 07:05 Head/Face: Normocephalic, atraumatic. cp 07:05 Eyes: Periorbital structures: appear normal, Conjunctiva: normal, no exudate, no injection, Sclera: no appreciated abnormality, Lids and lashes: appear normal, bilaterally. 07:05 ENT: External ear(s): are unremarkable, Ear canal(s): are normal, clear, TM's: dullness, bilaterally, Nose: is normal, Mouth: Lips: moist, Oral mucosa: moist, Posterior pharynx: Airway: no evidence of obstruction, patent. 07:05 Neck: ROM/movement: is normal, is supple, no meningismus, no nuchal rigidity. 07:05 Chest/axilla: Inspection: normal, Palpation: is normal, no crepitus, no tenderness. 07:05 Cardiovascular: Rate: tachycardic, Rhythm: regular, Edema: moderate left lower leg and right lower leg, JVD: is not appreciated. 07:05 Respiratory: mild respiratory distress is noted, Respirations: labored breathing, that is mild, Breath sounds: rhonchi, that are mild, are heard in the left posterior upper lobe and left posterior lower lobe, wheezing: is not appreciated. 07:05 Abdomen/GI: Inspection: abdomen appears normal, Bowel sounds: active, all quadrants, Palpation: abdomen is soft and non-tender, in all quadrants. 07:05 Neuro: Orientation: to person, place \\T\\ time. Mentation: is normal, Motor: moves all fours, strength is normal. Vital Signs: 06:50 BP 122 / 49; Pulse 110; Resp 30; Temp 100.6(A); Pulse Ox 95% on 15% Non-rebreather mask;lp1 07:00 BP 145 / 69; Pulse 100; Resp 26; Pulse Ox 100% on 100% BiPAP; lp1 07:17 Weight 90.72 kg; rr5 07:45 BP 134 / 62; Pulse 92; Resp 26 S; Temp 100.6(O); Pulse Ox 100% on BiPAP; Pain 0/10; aa5 09:27 Temp 98.5(O); jl7 09:27 BP 133 / 64; Pulse 102; Resp 25; Temp 98.5; Pulse Ox 100% on 100% BiPAP; jl7 10:20 BP 129 / 52; Pulse 94; Resp 24 S; Pulse Ox 93% on 60% BiPAP; aa5 10:45 BP 134 / 63; Pulse 94; Resp 26; Pulse Ox 91% on BiPAP; aa5 11:15 BP 118 / 58; Pulse 93; Resp 24 S; Temp 97.5(O); Pulse Ox 93% on 60% BiPAP; aa5 MDM: 06:48 Patient medically screened. cp 08:20 Data reviewed: vital signs, nurses notes, lab test result(s), EKG, radiologic studies, cp plain films. 08:20 Antibiotic administration: Cefepime and Vancomycin. Test interpretation: by ED cp physician or midlevel provider: ECG. 08:22 Physician consultation: Francesco Gomez MD was called at 08:20, regarding admission, to the medical/surgical unit. patient's condition, left message on voicemail. 09:25 Physician consultation: Francesco Gomez MD was called at 09:25, was contacted at 09:25, will call back to discuss patient. 10:09 Physician consultation: Francesco Gomez MD was contacted at 10:09, regarding admission, to the medical/surgical unit. patient's condition, wants to continue Zithromax and Cefepime antibiotics. 06/30 06:43 Order name: Urine Culture cp 06/30 06:43 Order name: Basic Metabolic Panel; Complete Time: 08:12 cp 06/30 08:12 Interpretation: Normal except: K 3.3; GLUC 115; GFR 70. cp 06/30 06:43 Order name: Blood Culture Adult (2) cp 06/30 06:43 Order name: CBC with Diff; Complete Time: 07:44 cp 06/30 07:44 Interpretation: Normal except: WBC 13.4; RBC 3.37; HGB 10.2; HCT 30.7; PLT 116; USAMA% cp 89.1; LYM% 4.2; NEUT A 12.0; LYMA 0.6. 06/30 06:43 Order name: CPK; Complete Time: 08:12 cp 06/30 06:43 Order name: Lactate; Complete Time: 07:44 cp 06/30 07:48 Interpretation: Abnormal: LAC 2.3. cp 06/30 06:43 Order name: LFT's; Complete Time: 08:12 cp 06/30 08:14 Interpretation: Normal except: AST 40; ALB 2.9; GLOB 3.6; A/G 0.8. cp 06/30 06:43 Order name: Procalcitonin; Complete Time: 09:39 cp 06/30 06:43 Order name: Protime (+inr); Complete Time: 07:44 cp 06/30 06:43 Order name: Ptt, Activated; Complete Time: 07:44 cp 06/30 06:43 Order name: Troponin (emerg Dept Use Only); Complete Time: 08:12 cp 06/30 06:43 Order name: Urine Microscopic Only; Complete Time: 09:39 cp 06/30 09:39 Interpretation: Normal except: UWBC LOADED; URBC 10-20; UBACT 20-50. cp 06/30 06:45 Order name: Influenza Screen (a \\T\\ B); Complete Time: 07:44 cp 06/30 07:06 Order name: Glucose, Ancillary Testing; Complete Time: 07:44 EDMS 06/30 06:43 Order name: Chest Single View XRAY; Complete Time: 08:12 cp 06/30 08:13 Interpretation: Report review. cp 06/30 08:36 Order name: UA; Complete Time: 09:39 eb 06/30 09:22 Order name: Urine Microscopic Only; Complete Time: 09:39 EDMS 06/30 09:52 Order name: Sputum Culture aa5 06/30 10:13 Order name: Lactate Sepsis 2 HR Follow-up; Complete Time: 10:55 EDMS 06/30 10:55 Interpretation: LACTATE SEPSIS 1.7; Reviewed. cp 06/30 06:43 Order name: Accucheck; Complete Time: 07:06 cp 06/30 06:43 Order name: Cardiac monitoring; Complete Time: 06:47 cp 06/30 06:43 Order name: EKG - Nurse/Tech; Complete Time: 07:06 cp 06/30 06:43 Order name: IV Saline Lock - Large Bore; Complete Time: 07:06 cp 06/30 06:43 Order name: Labs collected and sent; Complete Time: 07:06 cp 06/30 06:43 Order name: O2 Per Protocol; Complete Time: 06:47 cp 06/30 06:43 Order name: O2 Sat Monitoring; Complete Time: 06:47 cp 06/30 06:43 Order name: Urine Dipstick-Ancillary (obtain specimen); Complete Time: 08:02 cp 06/30 09:32 Order name: Labs - recollect needed: lactate sepsis due; Complete Time: 09:46 iw EC:48 Rate is 102 beats/min. Rhythm is regular. AR interval is normal. QRS interval is cp normal. QT interval is normal. Interpreted by me. Reviewed by me. Administered Medications: 06:59 Not Given (Physician Discretion): Acetaminophen 1000 mg PO once cp 07:00 Drug: Acetaminophen Suppository 650 mg Route: AR; rr5 09:40 Follow up: Response: Temperature is decreased aa5 09:25 Drug: Cefepime 2 grams {Note: administered slow IVP per pharmacy at this time. .} aa5 Route: IVPB; Rate: 200 ml/hr; Infused Over: 30 mins; Site: right hand; 09:30 Drug: Potassium Effervescent Tablet 50 mEq Route: PO; aa5 09:30 Drug: Lasix 20 mg Route: IVP; Site: right hand; aa5 09:35 Drug: vancoMYCIN 1 grams Route: IVPB; Infused Over: 2 hrs; Site: right hand; aa5 11:35 Follow up: Response: No adverse reaction; IV Status: Completed infusion aa5 09:37 Drug: morphine 2 mg Route: IVP; Site: right hand; aa5 11:00 Follow up: Response: No adverse reaction; Pain is unchanged, physician notified aa5 09:50 CANCELLED (Duplicate Order): morphine 2 mg IVP once; VO received at 0915 aa5 11:15 Drug: Ativan 0.25 mg Route: IVP; Site: right hand; aa5 11:17 Follow up: Response: No adverse reaction aa 11:17 Drug: morphine 2 mg Route: IVP; Site: right hand; aa5 11:22 Follow up: Response: No adverse reaction aa5 11:26 CANCELLED (Physician Discretion): morphine 2 mg IVP once; (PAIN>8) RASS on ADMN: aa5 Combtv4, Very Agttd3, Agttd2, Rstlss1, AlertClm0, Drwsy-1, LtSdtn-2, ModSdtn-3, DpSdtn-4, UnArsble-5 x2 11:26 CANCELLED (Duplicate Order): morphine 2 mg IVP once; VO received at 0911 aa5 12:42 CANCELLED (Pt in room 232 at this time. Will notify Beatriz to administer. ): Zithromax dm5 500 mg IVPB once over 1 hrs; mix in 250 mL NS Disposition: 07/01 09:39 Co-signature as Attending Physician, Ernesto Fine MD I agree with the assessment and kdr plan of care. Disposition: 07/01/19 10:11 Hospitalization ordered by Francesco Gomez for Inpatient Admission. Preliminary diagnosis are Pneumonia due to other specified bacteria, Unspecified combined systolic (congestive) and diastolic (congestive) heart failure, Other sepsis, Urinary tract infection, site not specified. - Bed requested for Telemetry/MedSurg (Inpatient). - Status is Inpatient Admission. aa5 - Condition is Serious. - Problem is an ongoing problem. - Symptoms have improved. Signatures: Dispatcher [employer] EDMS Trisha Heart RN KAYLYN dw Ernesto Fine MD MD [facility] Destiny Maldonado RN RN Latasha Smallwood RN RN aa5 Roya Ellison RN RN lp1 Kishan Patino PA PA cp Anthony Saeed RN RN rr5 Swetha Daley RN dm5 Corrections: (The following items were deleted from the chart) 06/30 09:50 09:48 morphine 2 mg IVP once; VO received at 0915 ordered. aa5 aa5 09:50 09:48 morphine 2 mg IVP once; VO received at 0915 given. aa5 aa5 09:50 09:50 morphine 2 mg IVP once; VO received at 0915 ordered. aa5 aa5 10:12 10:11 Hospitalization Ordered by Francesco Gomez MD for Inpatient Admission. Preliminary cp diagnosis is Pneumonia due to other specified bacteria; Unspecified combined systolic (congestive) and diastolic (congestive) heart failure; Other sepsis. Bed requested for Telemetry/MedSurg (Inpatient). Status is Inpatient Admission. Condition is Serious. Problem is an ongoing problem. Symptoms have improved. cp 11:26 11:03 morphine 2 mg IVP once; (PAIN>8) RASS on ADMN: Combtv4, Very Agttd3, Agttd2, aa5 Rstlss1, AlertClm0, Drwsy-1, LtSdtn-2, ModSdtn-3, DpSdtn-4, UnArsble-5 x2 ordered. cp 11:26 11:26 morphine 2 mg IVP once; VO received at 0911 ordered. aa5 aa5 11:26 11:26 morphine 2 mg IVP once; (PAIN>8) RASS on ADMN: Combtv4, Very Agttd3, Agttd2, aa5 Rstlss1, AlertClm0, Drwsy-1, LtSdtn-2, ModSdtn-3, DpSdtn-4, UnArsble-5 x2 ordered. aa5 11:35 10:12 07/01/2019 10:11 Hospitalization Ordered by Francesco Gomez MD for Inpatient dw Admission. Preliminary diagnosis is Pneumonia due to other specified bacteria; Unspecified combined systolic (congestive) and diastolic (congestive) heart failure; Other sepsis; Urinary tract infection, site not specified. Bed requested for Telemetry/MedSurg (Inpatient). Status is Inpatient Admission. Condition is Serious. Problem is an ongoing problem. Symptoms have improved. cp 12:42 12:28 Zithromax 500 mg IVPB once over 1 hrs; mix in 250 mL NS ordered. cp dm5 12:43 11:35 07/01/2019 10:11 Hospitalization Ordered by Francesco Gomez MD for Inpatient aa5 Admission. Preliminary diagnosis is Pneumonia due to other specified bacteria; Unspecified combined systolic (congestive) and diastolic (congestive) heart failure; Other sepsis; Urinary tract infection, site not specified. Bed requested for Telemetry/MedSurg (Inpatient). Status is Inpatient Admission. Condition is Serious. Problem is an ongoing problem. Symptoms have improved. dw
[2019-07-01] MEDS ORDERED: ONDANSETRON 4 MG/2 ML VIAL IV PRN (10:17)
[2019-07-01] MEDS ORDERED: ACETAMINOPHEN 500 MG TAB PO PRN (10:17)
[2019-07-01] MEDS ORDERED: LORazepam 2 MG/ML VIAL ONE (11:16)
[2019-07-01] MEDS: ALBUTEROL 2.5 MG/3 ML NEB SOL NEB SCH ×2 (12:38→19:45)
[2019-07-01] MEDS: IPRATROPIUM BROM 0.5MG/2.5ML NEB SCH ×4 (12:38→23:40)
[2019-07-01 13:16] VITALS: BMI 32.1
[2019-07-01] MEDS: HYDROCODONE/APAP 5/325 MG TAB PO PRN ×2 (14:31→20:35)
[2019-07-01] MEDS ORDERED: AZITHROMYCIN IV 500 MG in NA CHLORIDE 0.9% 250 ML IVPB ONE (15:00)
[2019-07-01] MEDS ORDERED: ENOXAPARIN 40 MG/0.4 ML SQ ONE (18:00)
[2019-07-01] MEDS: FAMOTIDINE 20 MG/2 ML VIAL IV SCH (20:35)
[2019-07-01] MEDS: CEFEPIME/SWI 1gm 10 ML IV SCH (20:35)
[2019-07-01] MEDS ORDERED: CEFEPIME 1 GM/VIAL IV SCH (21:00)
--- NOTE | 2019-07-01 21:02 | HP ---
Date of Admission: 07/01/2019 Chief Complaint: Shortness of breath and fever. History Of Present Illness: This is an 84-year-old male patient who was admitted to the hospital wit h complaints of fever and shortness of breath. Patient was in the hospital for 2-3 days. His COVID- 19 test came back negative yesterday, he had urinary tract infection, he was discharged to go home wi th culture specific antibiotic yesterday and yesterday morning when I saw him he was feeling fine, richards ppy, smiling, had no specific complaints at that particular time and he was discharged to go home wit h oral antibiotic. The patient returned back to emergency room early this morning with complaints of fever and shortness of breath. His oxygen saturation was in the range of 60% to 70%. He was yessy cameron in the ER, admitted to the hospital with pneumonia and acute respiratory failure requiring BiPAP therapy. His advanced directive was discussed in the emergency room by ER provider and DNR order was written in the chart. Patient has been on hospice care until last hospital stay, but he revoked hos pice and he was admitted to the hospital and yesterday when we discharged him, we did write the order for him to be admitted back to hospice care, but now he ends up back in the hospital with this probl em. When I saw him this evening he was on BiPAP and he is not able to tolerate discontinuation of Bi PAP even for a short period of time. Allergies: TO PENICILLIN, SULFA, AND LEVAQUIN. Medications: List reviewed. Review of Systems: Respiratory: As mentioned above. Constitutional: As mentioned above. All other systems reviewed and negative. Family History: Significant for coronary artery disease and Alzheimer disease. Social History: Negative for smoking, alcohol use. Past Surgical History: TURP, cataract surgery, back surgery, arthroscopic knee surgery, lung cancer in 2015. Past Medical History: Hypertension, hyperlipidemia, COPD, lung cancer, anemia, impaired fasting gluc ose, osteoarthritis at multiple sites, coronary artery disease, hypothyroidism, hypokalemia, osteopor osis, abdominal aortic aneurysm, gastroesophageal reflux disease, depression, chronic diastolic conge stive heart failure. Physical Examination: Vital Signs: When he first came to emergency room, temperature 100.6, pulse 110, respiratory rate 30 , blood pressure 122/79, oxygen saturation 95%, height 5 feet 6 inches, weight 199 pounds. General: Awake, alert, oriented, not in distress. HEENT: Head atraumatic, normocephalic. Conjunctivae nonerythematous. Sclerae white. Mouth, no thr ush or edema noted. Ears/Nose, no mass, lesion, discharge noted. Neck: Supple. No JVD, lymph nodes, bruit, thyromegaly noted. Lungs: Diminished air entry with some bronchial breathing in lower lung james. Heart: Normal heart sounds, no murmur or gallop. Abdomen: Soft, bowel sounds normal. No guarding, rigidity, tenderness, mass, hepatosplenomegaly, dis tention, or bruit noted. Extremities: Bilateral grade 2 pedal edema. Skin: No rash, ulcer, cellulitis. Lymphatics: No lymph node enlargement in neck, supraclavicular, infraclavicular region. Neuro: No focal neurological deficit. Chest: Unremarkable. External Genitalia: Deferred. Rectal: Deferred. Laboratory Data: White count 13.4, hemoglobin 10.2, platelets 116. Sodium 138, potassium 3.1, chlor kadi 104, bicarb 26, BUN 17, creatinine 1.02, glucose 115. Lactic acid 2.3. Procalcitonin 0.84, whic h is better than last hospital stay, which was in range of 2. Liver function tests unremarkable. Tr oponin less than 0.02. Chest x-ray shows worsening of left lung opacity. Impression: 1.Pneumonia. 2.Acute respiratory failure with hypoxia. 3.Anemia, unspecified. 4.Thrombocytopenia. 5.Hypokalemia. 6.Congestive heart failure, chronic, diastolic, with acute exacerbation. 7.Impaired fasting glucose. 8.Osteoarthritis, multiple sites. 9.Coronary artery disease. 10.Hypothyroidism. 11.Abdominal aortic aneurysm. 12.Gastroesophageal reflux disease. 13.Depression. Plan: Admit patient to hospital for further evaluation and management of this problem. The patient is appropriate for inpatient and is expected to spend 2 midnights in hospital. We will go ahead and give IV antibiotics, oxygen nebulizer treatment, IV Lasix, DVT prophylaxis using Lovenox will be give n per order. We will consult Dr. Gillis. The patient tells me that he does not think that he can go home without BiPAP machine and I did talk to him about considering him getting hospice care. Not sure if hospice will allow that or not, but at the same time he needs to think about it if he wants t o go home with BiPAP with or without hospice or let the nature takes its course in the event if respi ratory failure problem happens again. He is going to think about it. Meanwhile, we will consult Dr. Gillis also. I will see him tomorrow for followup. DNR order was written in the chart as per humaira krause's wishes. WAGNER/MODL Voice ID: [id number]
[2019-07-01] MEDS: LORazepam 2 MG/ML VIAL IV PRN (22:50)
[2019-07-02] MEDS: ALBUTEROL 2.5 MG/3 ML NEB SOL NEB SCH ×2 (02:00→07:50)
[2019-07-02] MEDS: HYDROCODONE/APAP 5/325 MG TAB PO PRN (02:08)
[2019-07-02] MEDS: IPRATROPIUM BROM 0.5MG/2.5ML NEB SCH ×2 (03:10→07:50)
[2019-07-02 04:19] VITALS: O2SAT 92
[2019-07-02 06:19] LABS: Absolute Lymphocytes (CBC) 0.9 K/uL (0.7-4.9); Basophils % 0.4 % (0-1.3); Lymphocytes % 5.8 % (15.3-44.8); MPV 10.5 fL (7.6-11.3); RBC Red Blood Cell Count 3.49 M/uL (4.33-5.43)
[2019-07-02 06:24] LABS: Magnesium 2.1 mg/dL (1.8-2.4); Potassium 3.8 mmol/L (3.5-5.1)
[2019-07-02] MEDS: LORazepam 2 MG/ML VIAL IV PRN (07:31)
[2019-07-02] MEDS ORDERED: POLYETHYL GLY 3350 17 GM/DOSE PO PRN (07:58)
[2019-07-02] MEDS ORDERED: MORPHINE 2 MG/ML SYR IV PRN ×2 (08:46→10:35)
[2019-07-02] MEDS ORDERED: HOME MED 1 EA UNK (Fluticasone/Umeclidin/Vilanter [Trelegy Ellipta 100-62.5-25] 1 PUFF) IH SCH (09:00)
[2019-07-02] MEDS ORDERED: METOPROLOL TAR 50 MG TAB PO SCH (09:00)
[2019-07-02] MEDS ORDERED: hydroCHLOROthiazide 12.5 MG CAP PO SCH (09:00)
[2019-07-02] MEDS ORDERED: AMLODIPINE 5 MG TAB PO SCH (09:00)
[2019-07-02] MEDS ORDERED: FLUOROMETHOLONE 0.1% EACH EYE SCH (09:00)
[2019-07-02] MEDS ORDERED: DULOXETINE 30 MG CAP PO SCH (09:00)
[2019-07-02] MEDS ORDERED: LOSARTAN POTASSIUM 50 MG TABLET PO SCH (09:00)
[2019-07-02] MEDS ORDERED: PSYLLIUM 1 PKT PO SCH (09:00)
[2019-07-02] MEDS ORDERED: AZITHROMYCIN IV 500 MG in NA CHLORIDE 0.9% 250 ML IVPB SCH (09:00)
[2019-07-02] MEDS ORDERED: VITAMIN B COMPLEX 1 CAP PO SCH (09:00)
[2019-07-02] MEDS ORDERED: POTASSIUM CL SA 10 MEQ TAB PO ONE (09:00)
[2019-07-02] MEDS ORDERED: predniSONE 10 MG TAB PO SCH (09:00)
[2019-07-02] MEDS ORDERED: METHADONE HCL 10 MG TAB PO SCH (09:00)
[2019-07-02] MEDS ORDERED: FUROSEMIDE 20 MG/ 2ML VIAL IV SCH (09:00)
[2019-07-02] MEDS ORDERED: MAGNESIUM CHLORIDE 64 MG TAB PO SCH (09:00)
[2019-07-02] MEDS ORDERED: ASPIRIN EC 81 MG TAB PO SCH (09:00)
[2019-07-02] MEDS: CEFEPIME/SWI 1gm 10 ML IV SCH (09:10)
[2019-07-02] MEDS: FAMOTIDINE 20 MG/2 ML VIAL IV SCH (09:10)
[2019-07-02 10:13] VITALS: BP 186/84; TEMP 98
--- NOTE | 2019-07-02 11:18 | PN ---
Date of Progress Note: 07/02/2019 Subjective: Patient was seen this morning for followup. He was lying in bed with BiPAP on and was b reathing rapidly up to 40 times per minute and his condition this morning was noted to be lot worse c ompared to last night when I saw him. Patient also wrote a note to me requesting for him to assist h im to naturally to keep him comfortable. Physical Examination: HEENT: Examination unremarkable. Lungs: Bilateral shallow breathing, rapid breathing. Heart: Sounds normal. Abdomen: Soft bowel sounds. Normal. No guarding, rigidity, tenderness, or distention. Extremities: Bilateral leg edema present, slightly less today than yesterday. Impression: 1.Acute respiratory failure with hypoxia. 2.Pneumonia. 3.Chronic obstructive pulmonary disease. 4.Congestive heart failure, chronic, diastolic, with acute exacerbation. Plan: We will go ahead and request inpatient hospice care using his hospice agency [facility] who was [facility] to him prior to the hospitalization. The patient already has IV Ativan and we will order IV morphine for him. I have discussed details with Dr. Gilbert, who is a hospice medical di jaja and he will evaluate once patient gets admitted to hospice. He will be transferred to hospice care. Prognosis is very poor and patient is expected to within short time during this hospitali zation and he is very appropriate for inpatient hospice care. I will call the patient's and communicate with her as well. WAGNER/MODL Voice ID: [id number] Report ID: [id number]
--- NOTE | 2019-07-02 14:34 | EKG ---
Test Date: 2019-07-01 Test Time: 06:40:22 [employer] Crossing Guard: RR MEASUREMENT RESULTS: Intervals: Rate: 102 VA: 118 QRSD: 84 QT: 328 QTc: 427 [place]: P: 25 VA: 118 QRS: -44 T: 83 INTERPRETIVE STATEMENTS: Sinus tachycardia with premature atrial complexes Left axis deviation Nonspecific ST abnormality Abnormal ECG Compared to ECG 06/28/2019 12:53:39 Atrial premature complex(es) now present ST (T wave) deviation now present Sinus rhythm no longer present Electronically Signed On 07-02-19 14:33:00 CDT by Rajan Duque
[2019-07-02] MEDS ORDERED: CLOPIDOGREL 75 MG TABLET PO SCH (17:00)
[2019-07-02] MEDS ORDERED: ENOXAPARIN 40 MG/0.4 ML SQ SCH (17:00)
[2019-07-02] MEDS ORDERED: HOME MED 1 EA UNK (Potassium [Potassium] 99 MG) PO SCH (17:00)
[2019-07-02] MEDS ORDERED: DOXAZOSIN 2 MG TAB PO SCH (21:00)
[2019-07-03] MEDS ORDERED: LEVOTHYROXINE SOD 0.1 MG TAB PO SCH (06:00)
--- NOTE | 2019-07-04 12:25 | DS ---
Date of Discharge: 07/02/2019 Disposition: Patient was admitted to hospice care, inpatient hospice. Physical Examination: See copy of today's progress note for details. Laboratory Data: White count upon admission 13.4, hemoglobin 10.2, platelets 116. Today, white count 15.3, hemoglobin 10.7, platelets 120. Chemistry, today sodium 139, potassium 3.8, chloride 104, bicarb 24, BUN 15, creatinine 0.92, glucose 84. Hospital Course: 84-year-old male patient admitted to the hospital with fever and shortness of breath. Please see dictated H and P for more information. After patient was evaluated in the emergency room, he was admitted to the hospital. Patient was admitted with acute respiratory failure with hypoxia and pneumonia. He was given IV antibiotic, oxygen, nebulizer treatment, BiPAP. Overall, his condition deteriorated rapidly; and on outpatient basis, he was on hospice care. So, considering rapid deterioration of his condition, I recommended inpatient hospice care, which patient and his were agreeable and [facility], who was providing outpatient hospice care, was consulted and Dr. Gilbert was contacted from [facility] and details were discussed with him and the patient will be admitted to [facility] today. When I saw him today on the day of discharge, his condition had significantly deteriorated and details were discussed with the patient's . Final Diagnoses: 1. Pneumonia. 2. Acute respiratory failure with hypoxia. 3. Anemia, unspecified. 4. Thrombocytopenia. 5. Hypokalemia. 6. Congestive heart failure, chronic, diastolic, with acute exacerbation. 7. Impaired fasting glucose. 8. Osteoarthritis, multiple sites. 9. Coronary artery disease. 10. Hypothyroidism. 11. Abdominal aortic aneurysm. 12. Gastroesophageal reflux disease. 13. Depression. WAGNER/MODL Voice ID: [id number] Report ID: [id number] MIRANDA
== END 2019-07-02 10:46 | disposition home or self-care (01) | DRG 193 ==
LOC: ER 06:30 → ERHOLD 10:14 → 2ND 12:10
PROVIDERS: ADMIT Internal Medicine; ATTEND Internal Medicine
DX: J18.9 Pneumonia, unspecified organism (principal); J96.01 Acute respiratory failure with hypoxia; I50.33 Acute on chronic diastolic (congestive) heart failure; J44.0 Chronic obstructive pulmonary disease with (acute) lower respiratory infection; Z66 Do not resuscitate; D64.9 Anemia, unspecified; D69.6 Thrombocytopenia, unspecified; E87.6 Hypokalemia; R73.01 Impaired fasting glucose; M19.90 Unspecified osteoarthritis, unspecified site; I25.10 Atherosclerotic heart disease of native coronary artery without angina pectoris; E03.9 Hypothyroidism, unspecified; I71.4 Abdominal aortic aneurysm, without rupture; K21.9 Gastro-esophageal reflux disease without esophagitis; F32.9 Major depressive disorder, single episode, unspecified; Z88.1 Allergy status to other antibiotic agents; Z88.0 Allergy status to penicillin; Z85.118 Personal history of other malignant neoplasm of bronchus and lung; I11.0 Hypertensive heart disease with heart failure; E78.5 Hyperlipidemia, unspecified; Z79.52 Long term (current) use of systemic steroids; Z79.02 Long term (current) use of antithrombotics/antiplatelets; Z79.891 Long term (current) use of opiate analgesic; Z79.890 Hormone replacement therapy; Z79.899 Other long term (current) drug therapy; Z79.82 Long term (current) use of aspirin; Z86.73 Personal history of transient ischemic attack (TIA), and cerebral infarction without residual deficits; Z90.49 Acquired absence of other specified parts of digestive tract; Z95.1 Presence of aortocoronary bypass graft; Z87.891 Personal history of nicotine dependence
CPT/HCPCS: 36415; 71045; 80048; 80076; 81003; 81015; 82550; 82947; 83605; 83735; 83880; 84145; 84484; 85025; 85610; 85730; 87040; 87070; 87086; 87088; 87205; 87804; 93005; 94640; 94660; 96365; 96366; 96375; 99285; J0456; J0692; J1650; J1940; J2270; J3370; J7030

== ENCOUNTER 2019-07-02 10:55 | Inpatient (IN) | payer OTHER ==
--- OUTSIDE RECORDS SUMMARY | 2019-07-02 10:58 | XMS REPORT ---
:1935 [address] [facility] [place] t Address [address] [place] [address] [address] [place] [address] Care Team Providers Name Role Phone Charlotte [...] Verif ied Date/Time: 04/28/2017 15:21:39 Reading Location: [place] [address] Angio Body Reading Room Addendum EndsFINAL REPORT [...] diameter at image 29 of the right mail processor al iliac artery is approximately 3.9 x [...] however, the referring physi ari is the [employer] [facility] and therefore no r ecommendation necessary. Diffuse calcific atherosclerosis seen in the pelvic arteries with no critical obstructive lesion identifie d. 2. Patent mesenteric and renal arterie s. 3. Other findings as described above. 4. An addendum will be dictated regarding [facility] non-vascular findings by the [employer] R adiologist. Signed: Marc Pierce eport Verified Date/Time: 04/28/2017 13:31 :12 Reading Location: [facility] P047 Cardio logy MRI -CREATININE 2017-04-28 12:16:00 Test Item Value Reference Range Comments POC-CREATININE (BEAKER) (test code 1.0 mg/dL 0.6-1.[address] [facility] 6720 = 1859) [facility] [address] POC-EGFR (MALLORY) (test code = 72 mL/min/1.73M2 1859)
[2019-07-02] MEDS: MORPHINE 2 MG/ML SYR IV PRN ×3 (11:00→14:50)
[2019-07-02] MEDS ORDERED: ZIPRASIDONE MESYLA 20 MG/VIAL IM PRN (11:11)
[2019-07-02] MEDS ORDERED: WATER FOR INJ,STERILE 10 ML IM PRN (11:12)
[2019-07-02] MEDS ORDERED: SCOPOLAMINE HYDROBROMIDE PATCH TD SCH (11:15)
[2019-07-02 12:53] VITALS: BMI 32.1
[2019-07-02] MEDS: LORazepam 2 MG/ML VIAL IV PRN ×3 (13:01→16:12)
[2019-07-02] MEDS ORDERED: LORazepam 2 MG/ML VIAL IV PRN (16:17)
--- NOTE | 2019-07-02 23:01 | P.SSS ---
Patient History Date of Service: 07/02/19 Reason for admission: END STAGE COPD History of Present Illness: MR. MCGOWAN HAS END STAGE COPD AND LARGE ABDOMEN AORTIC ANEURYSM. HE WAS SENT HOME A DAY AGO BUT HE GOT RAPIDELY WORESE AND DECIDED TO COME BACK TO ER. HE WAS ON HOSPICE BEFORE AND DR. HIGH CALLED IN HOSPICE AGAIN HE IS IMMINENTLY DYING. HE IS SEVERELY DYSPNEIC. HOSPICE ORDER WAS CALLED IN AT 9:40 OR SO AND I SAW HIM AT 10:30 AM. I CALLED THE TO DIRECTOR CORRECTIONAL [employer]ENC[employer] HER, ORDERED COMFORT MEDICATIONS AND ASKED THE TEACHER OF GIFTED STUDENTS TO LET FAMILY COME IN. HIS COVID TEST IS NEGATIVE. MR. GUERRA WITHIN A FEW HOURS EXPECTED. Allergies penicillin Allergy (Verified 04/03/17 15:51) Itching/Hives/Rash Sulfa (Sulfonamide Antibiotics) Allergy (Verified 04/03/17 15:51) Rash levofloxacin [From Levaquin] Adverse Reaction (Severe, Verified 11/27/18 01:22) tendonitis Home Medications: Albuterol Sulfate [Albuterol Sulfate Hfa] 1 puff IH QIDP PRN 01/28/19 Clopidogrel Bisulfate [Plavix] 75 mg PO 1700 01/28/19 Furosemide [Lasix*] 40 mg PO DAILYPRN PRN 01/28/19 Hydrocodone Bit/Acetaminophen [Hydrocodon-Acetaminophn 10-325] 10 mg PO Q4H PRN 01/28/19 LORazepam [Ativan] 0.5 mg PO BEDTIME PRN 01/28/19 Levothyroxine [Synthroid] 100 mcg PO [id number] 01/28/19 Losartan Potassium [Cozaar] 50 mg PO BID 01/28/19 Metoprolol Tartrate [Lopressor] 50 mg PO BID 01/28/19 Polyethylene Glycol 3350 [Miralax] 17 gm PO PRN PRN 01/28/19 Potassium 99 mg PO 1700 01/28/19 hydroCHLOROthiazide [Hydrochlorothiazide*] 12.5 mg PO DAILY 01/28/19 predniSONE [Deltasone] 10 mg PO DAILY 01/28/19 Amlodipine Besylate 5 mg PO BID 06/29/19 Aspirin [Aspirin EC 325 MG] 1 tab PO DAILY PRN 06/29/19 Cholecalciferol (Vitamin D3) [Vitamin D3] 25 mcg PO DAILY 06/29/19 Doxazosin [Cardura] 1 mg PO BEDTIME 06/29/19 Duloxetine HCl [Cymbalta] 1 tab PO DAILY 06/29/19 Ferrous Fumarate/Vit Bcomp&C [Super B-Complex Caplet] 1 tab PO DAILY 06/29/19 Fluorometholone 0.1% [Fml 0.1% Ophth Susp] 1 drops EACH EYE BID 06/29/19 Fluticasone/Umeclidin/Vilanter [Trelegy Ellipta 100-62.5-25] 1 puff IH DAILY 06/29/19 Magnesium Chloride [Slow-Mag*] 1 tab PO DAILY 06/29/19 Methadone HCl 1 tab PO BID 06/29/19 Psyllium [Metamucil (Hydrocil)*] 1 packet PO DAILY 06/29/19 Guaifenesin/Dextromethorphan [Mucinex Dm ER 600-30 mg Tablet] 600 mg PO DAILY MDD 1-2tabs 07/01/19 - Past Medical/Surgical History Diabetic: No -: CAD -: HTN -: lung cancer -: degnerative disc disease -: chronic back pain -: hypothryoid -: copd -: abdominal aortic anerysm -: TIA -: peripheral neuropathy, tendon problems -: osteroporosis -: sinusitis, enlarged prostate, -: bilateral cataract sx -: facial cyst removal -: L4, L5 laminectomy -: hemorrhoidectomy -: triple bypass -: orthroscopic knee -: heart cath -: prostate resection - Family History Mother -: Cancer Father -: Heart disease, Lung disease - Social History Alcohol use: No CD- Drugs: No Caffeine use: Yes Physical Examination - Vital Signs Respirations: 45 Pulse Ox (%): 83 - Physical Exam General: Severe distress Respiratory: Diminished, Inspiratory wheezes - Diagnosis (Problem(s)) (1) COPD (chronic obstructive pulmonary disease) Status: Chronic Plan: END STAGE. ON HOSPICE. FAMILY KEPT INFORMED. Qualifiers: COPD type: COPD with acute exacerbation Qualified Code(s): J44.1 - Chronic obstructive pulmonary disease with (acute) exacerbation - Disposition Disposition: Condition:
== END 2019-07-02 18:07 | disposition hospice, inpatient (51) | DRG 951 ==
LOC: 2ND 10:55
PROVIDERS: ADMIT Internal Medicine; ATTEND Internal Medicine
DX: Z51.5 Encounter for palliative care (principal); J44.1 Chronic obstructive pulmonary disease with (acute) exacerbation; I10 Essential (primary) hypertension; E03.9 Hypothyroidism, unspecified; G89.29 Other chronic pain; I25.10 Atherosclerotic heart disease of native coronary artery without angina pectoris; I71.4 Abdominal aortic aneurysm, without rupture; Z88.1 Allergy status to other antibiotic agents; Z88.0 Allergy status to penicillin; Z79.02 Long term (current) use of antithrombotics/antiplatelets; Z79.899 Other long term (current) drug therapy; Z79.891 Long term (current) use of opiate analgesic; Z79.890 Hormone replacement therapy; Z79.52 Long term (current) use of systemic steroids; Z79.82 Long term (current) use of aspirin; Z85.118 Personal history of other malignant neoplasm of bronchus and lung; Z86.73 Personal history of transient ischemic attack (TIA), and cerebral infarction without residual deficits; Z87.898 Personal history of other specified conditions; Z90.79 Acquired absence of other genital organ(s)
CPT/HCPCS: J2270; J3486